=== PATIENT | male | born 1975 | race Caucasian/White ===

== ENCOUNTER 2020-03-12 12:13 | Outpatient (CLI) | payer OTHER, MEDICARE, SELFPAY ==
[2020-03-12 13:09] LABS: Alanine Aminotransferase 21 U/L (4-50); Albumin Level 4.8 g/dL (3.5-5.1); Alkaline Phosphatase 77 U/L (38-126); Aspartate Amino Transferase 23 U/L (17-59); Bilirubin,Total 0.4 mg/dL (0.2-1.3); Blood Urea Nitrogen 20 mg/dL (9-20); Calcium 9.6 mg/dL (8.4-10.2); Carbon Dioxide 22 mmol/L (22-30); Chloride 108 mmol/L (98-107); Cholesterol 208 mg/dL (0-200); Estimated Glomerular Filt Rate > 60; Glucose 154 mg/dL (75-110); Potassium 4.6 mmol/L (3.4-5.0); Sodium 139 mmol/L (137-145); Triglycerides 279 mg/dL (<150)
[2020-03-12 13:13] LABS: HDL Direct 34 mg/dL
[2020-03-12 13:14] LABS: LDL Cholesterol Direct 120 mg/dL
== END 2020-03-12 12:14 | disposition home or self-care (01) ==
PROVIDERS: PCP Family Medicine; Visit Provider Internal Medicine Cardiovascular Disease
DX: E78.5 Hyperlipidemia, unspecified (principal)
CPT/HCPCS: 36415; 80053; 80061

== ENCOUNTER 2020-10-13 17:40 | Outpatient (CLI) | payer OTHER, MEDICARE, SELFPAY ==
--- NOTE | ~2020-10-13 | US_ITS ---
EXAMINATION: US scrotum doppler EXAM DATE: 10/13/2020 18:18 INDICATION: N50.812 - Left testicular pain . Symptoms progressing for last week. TECHNIQUE: Multiple grayscale and Doppler images of the testicles and scrotum were obtained bilateral ly. FINDINGS: Right testicle measures 4.3 x 2.4 x 3.4 cm and is morphologically normal. Low resistance Doppler tod w confirmed. The epididymis is unremarkable. There is no hydrocele or varicocele. Left testicle measures 4.4 x 2.1 x 3.4 cm and is morphologically normal. Low resistance Doppler flow confirmed. Left epididymis body appears larger than contralateral side with similar echogenicity. Mi nimal symmetric demonstratable vascularity to both of them. Acute epididymitis typically has increase d vascularity which is not demonstrated here, but patient could have been on antibiotics decreasing i nflammation. There is no hydrocele or varicocele. IMPRESSION: 1. Morphologically normal testicles. 2. Asymmetric epididymal size with the left being larger. Both left and right epididymi have symmetr ic minimal demonstratable vascularity. Appearance most consistent with partially treated epididymitis , assuming patient has been on antibiotics. Small left hydrocele. Reviewed, dictated and finalized at location A. IT REVIEW ANALYST IMPRESSION: 1. Morphologically normal testicles. 2. Asymmetric epididymal size with the left being larger. Both left and right epididymi have symmetric minimal demonstratable vascularity. Appearance most co nsistent with partially treated epididymitis, assuming patient has been on anti biotics. Small left hydrocele.
== END 2020-10-13 17:41 | disposition home or self-care (01) ==
PROVIDERS: PCP Family Medicine; Visit Provider Nurse Practitioner Family
DX: N50.812 Left testicular pain (principal); N50.89 Other specified disorders of the male genital organs; R68.83 Chills (without fever)
CPT/HCPCS: 76870; 93976

== ENCOUNTER 2020-10-14 12:54 | Outpatient (CLI) | payer OTHER, MEDICARE, SELFPAY ==
[2020-10-14 13:29] LABS: Basophils Absolute Auto 0.1 K/mm3 (0.0-0.1); Basophils Percent Auto 0.8 % (0.2-1.2); Eosinophils Absolute Auto 0.2 K/mm3 (0-0.3); Eosinophils Percent Auto 2.4 % (0-4.4); Hemoglobin 16.4 g/dL (14.0-18.0); Immature Granulocyte Absolute 0.03 K/mm3 (0.00-0.031); Immature Granulocyte Percent A 0.3 % (0-0.5); Lymphocytes Absolute Auto 2.99 K/mm3 (0.9-3.2); Mean Corpuscular HGB Conc 35.7 g/dl (32-36); Mean Corpuscular Hemoglobin 30.2 pg (26-34); Mean Corpuscular Volume 84.7 fl (80-100); Mean Platelet Volume 10.1 fl (7.4-10.4); Monocytes Absolute Auto 0.8 K/mm3 (0.1-0.6); Monocytes Percent Auto 8.9 % (2.6-8.5); Neutrophils Absolute Auto 4.9 K/mm3 (1.3-6.7); Neutrophils Percent Auto 54.6 % (45.5-73.1); Platelet Count Result 191 k/mm3 (150-375); Red Blood Count 5.43 M/mm3 (4.6-6.20); White Blood Count 9.1 K/mm3 (4.5-10.0)
[2020-10-14 13:41] LABS: Anion Gap 8 mmol/L (8-16); Blood Urea Nitrogen 15 mg/dL (9-20); Calcium 9.7 mg/dL (8.4-10.2); Carbon Dioxide 28 mmol/L (22-30); Chloride 101 mmol/L (98-107); Estimated Glomerular Filt Rate > 60; Glucose 112 mg/dL (75-110); Potassium 4.5 mmol/L (3.4-5.0); Sodium 137 mmol/L (137-145)
== END 2020-10-14 12:55 | disposition home or self-care (01) ==
LOC: ANHLAB 12:58
PROVIDERS: PCP Family Medicine; Visit Provider Nurse Practitioner Family
DX: R68.83 Chills (without fever) (principal); N50.812 Left testicular pain; N50.89 Other specified disorders of the male genital organs
CPT/HCPCS: 36415; 80048; 85025

== ENCOUNTER 2020-12-17 08:38 | Outpatient (CLI) | payer OTHER, MEDICARE, SELFPAY ==
--- NOTE | 2020-12-17 08:49 | ECHO_ITS ---
Patient Info Name: Porfirio Chang Age: 45 years : 1975 Gender: Male Ht: 72 in Wt: 225 lbs BSA: 2.30 m2 HR: 60 bpm BP: 139 / 75 mmHg Heart Rhythm: Sinus Rhythm Exam Date: 12/17/2020 9:00 AM Exam Location: [facility] Patient Status: Outpatient Admit Date: 12/17/2020 Staff Ordering Physician: Kevin Hobbs DO Sod Stripper: Gillian Parrish RDCS Attending Provider: Kevin Hobbs DO Referring Physician: Anjel PIERRE; Exam Type: CA echo doppler color flow Study Info Indications I42.1 - Obstructive hypertrophic cardiomyopathy Complete two-dimensional, color flow and Doppler transthoracic echocardiogram is performed. Summary 1. Complete two-dimensional, color flow and Doppler transthoracic echocardiogram is performed. 2. Left ventricular chamber dimension is normal. 3. Ventricular septum is sigmoid shaped. No LVOT obstruction. 4. Left ventricular systolic function is normal, estimated at 60-65%. 5. The left ventricular diastolic function is grade I diastolic dysfunction. 6. E/e' 7 is not elevated. 7. Linear artifact in right ventricle suggestive of catheter(s), pacemaker lead(s), or ICD lead(s). 8. Left atrial chamber dimension is mildly enlarged. 9. Linear artifact in the right atrium suggestive of catheter(s), pacemaker lead(s), or ICD lead(s). 10. There is trace mitral valve regurgitation. 11. There is trace tricuspid valve regurgitation. Left Ventricle E/e' 7 is not elevated. Ventricular septum is sigmoid shaped. No LVOT obstruction. Left ventricular chamber dimension is normal. Left ventricular systolic function is normal, estimated at 60-65%. The left ventricular diastolic function is grade I diastolic dysfunction. Right Ventricle Linear artifact in right ventricle suggestive of catheter(s), pacemaker lead(s), or ICD lead(s). Right ventricular chamber dimension is normal. Right ventricular systolic function is normal. Left Atria Left atrial chamber dimension is mildly enlarged. Right Atria Linear artifact in the right atrium suggestive of catheter(s), pacemaker lead(s), or ICD lead(s). Right atrial chamber dimension is normal. Aortic Valve The aortic valve is trileaflet. There is no aortic valve stenosis. There is no aortic valve regurgitation. Pulmonic Valve There is no pulmonic regurgitation. Mitral Valve There is no mitral valve stenosis. There is trace mitral valve regurgitation. Tricuspid Valve There is trace tricuspid valve regurgitation. RVSP is not calculated due to an inadequate TR jet. Pericardium/Pleural There is no pericardial effusion. Inferior Vena Cava Normal inferior vena cava with >50% collapse upon inspiration consistent with normal right atrial pressure, 5 mmHg. Aorta The aortic root size at the sinus of Valsalva is normal. Left Ventricular Outflow Tract Name Value Normal LVOT 2D LVOT Diameter 2.4 cm LVOT Doppler LVOT Peak Gradient 3 mmHg LVOT Mean Gradient 1 mmHg LVOT VTI 19 cm LVOT VTI/AV VTI Ratio 0.7
== END 2020-12-17 08:39 | disposition home or self-care (01) ==
PROVIDERS: PCP Family Medicine; Visit Provider Internal Medicine Cardiovascular Disease
DX: I42.1 Obstructive hypertrophic cardiomyopathy (principal)
CPT/HCPCS: 93306

== ENCOUNTER 2021-02-07 11:02 | Outpatient (CLI) | payer OTHER, MEDICARE, SELFPAY | END 2021-02-07 11:03 | disposition home or self-care (01) | LOC: CHSCOVIDVC 11:03 | PROVIDERS: PCP Family Medicine | DX: Z23 Encounter for immunization (principal) | CPT/HCPCS: 0011A; 91301 ==

== ENCOUNTER → 2021-02-28 02:10 | Outpatient (CLI) | payer OTHER, MEDICARE, SELFPAY ==
[2021-02-28 19:55] LABS: SARS-CoV-2 RNA PCR Negative
== END ==
PROVIDERS: PCP Family Medicine; Visit Provider Internal Medicine Cardiovascular Disease
DX: Z01.812 Encounter for preprocedural laboratory examination (principal); Z20.822 Contact with and (suspected) exposure to COVID-19
CPT/HCPCS: C9803; U0003; U0005

== ENCOUNTER 2021-03-04 02:35 | Day surgery (SDC) | payer OTHER, MEDICARE, SELFPAY ==
--- NOTE | 2021-03-04 10:07 | SUR.PREOP ---
ARRIVES AMBULATORY TO [facility] W/ AT SIDE FOR ICD CHANGE W/ DR. PRITCHARD. DENIES CP OR SOB; LIFE VEST IS ON. ORIENTED TO ROOM, PLAN OF CARE, PROCEDURE. QUESTIONS ANSWERED. IV STARTED, LABS SENT, VS OBTAINED, CONSENT SIGNED. WILL CONTINUE TO MONITOR.
[2021-03-04 10:38] LABS: Basophils Percent Auto 0.7 % (0.2-1.2); Eosinophils Absolute Auto 0.2 K/mm3 (0-0.3); Hematocrit 41.3 % (42.0-52.0); Hemoglobin 14.3 g/dL (14.0-18.0); Immature Granulocyte Absolute 0.01 K/mm3 (0.00-0.031); Immature Granulocyte Percent A 0.2 % (0-0.5); Lymphocytes Absolute Auto 2.01 K/mm3 (0.9-3.2); Lymphocytes Percent Auto 47.3 % (18.3-44.2); Mean Corpuscular HGB Conc 34.6 g/dl (32-36); Mean Corpuscular Hemoglobin 29.6 pg (26-34); Mean Corpuscular Volume 85.5 fl (80-100); Monocytes Absolute Auto 0.5 K/mm3 (0.1-0.6); Monocytes Percent Auto 10.6 % (2.6-8.5); Neutrophils Absolute Auto 1.6 K/mm3 (1.3-6.7); Neutrophils Percent Auto 37.2 % (45.5-73.1); Platelet Count Result 155 k/mm3 (150-375); Red Blood Count 4.83 M/mm3 (4.6-6.20); Red Cell Distribution Width 12.2 % (11.5-14.5); White Blood Count 4.3 K/mm3 (4.5-10.0)
[2021-03-04 10:40] VITALS: BP 113/71; PULSE 60; RESP 16; TEMP 36.3; O2SAT 98
[2021-03-04 10:49] LABS: Alanine Aminotransferase 19 U/L (4-50); Albumin Level 4.2 g/dL (3.5-5.1); Alkaline Phosphatase 54 U/L (38-126); Anion Gap 8 mmol/L (8-16); Aspartate Amino Transferase 26 U/L (17-59); Bilirubin,Total 0.3 mg/dL (0.2-1.3); Blood Urea Nitrogen 15 mg/dL (9-20); Calcium 9.2 mg/dL (8.4-10.2); Carbon Dioxide 24 mmol/L (22-30); Chloride 111 mmol/L (98-107); Estimated Glomerular Filt Rate > 60; Glucose 111 mg/dL (75-110); Potassium 4.2 mmol/L (3.4-5.0); Sodium 143 mmol/L (137-145)
--- NOTE | 2021-03-04 10:55 | SUR.PREOP ---
[employer] AT BEDSIDE.
[2021-03-04 11:07] VITALS: BMI 30.5
--- NOTE | 2021-03-04 11:10 | SUR.PREOP ---
DR. PRITCHARD AT BEDSIDE W/ PT AND .
--- NOTE | 2021-03-04 11:12 | PM.IMHP ---
H&P: HPI History of Present Illness Date/Time: 03/04/21 11:12 Chief Complaint: Mr. 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 Hobbs. His ICD showed a fault code on 02/04/2021, showing low voltage and urgent generator change was recommended. A LifeVest was placed to provide us time to arrange for an elective generator change. The patient has been doing well with no fevers. He has been NPO. His last dose of Eliquis was Tuesday. He has some chronic GOODE and occasional cough syncope secondary to HOCM but no other problems. His original ICD was placed by Dr. Waldrop at [facility] in 2014. Review of Systems Constitutional: Constitutional: Denies weakness ENT: Reports Normal hearing present Cardiovascular: Cardiovascular: Denies chest pain, Denies pedal edema, Denies lightheadedness and Denies palpitations Respiratory: Respiratory: Denies dyspnea and Reports dyspnea on exertion Gastrointestinal: Gastrointestinal: Denies abdominal pain Genitourinary: Genitourinary: Denies dysuria Musculoskeletal: Musculoskeletal: Reports no additional musculoskeletal complaints Integumentary/Breasts: Skin/Breast: Denies rash and Denies wounds Neurologic: Reports system reviewed and no additional complaints, except as documented Psychiatric: Psychiatric: Reports no additional psychiatric complaints [facility] Past Medical History Medical History (Updated 03/04/21 @ 11:23 by Sudha Gage MD) BMI 30.0-30.9,adult Chronic anticoagulation Headache, migraine Heart murmur HOCM (hypertrophic obstructive cardiomyopathy) s/p myomectomy Hyperlipidemia Hypertension ICD (implantable cardioverter-defibrillator) in place [employer], implanted by Dr. Waldrop 2104 Generator change 2020 DALIA (obstructive sleep apnea) Surgical History Surgical History (Updated 03/04/21 @ 11:23 by Sudha Gage MD) Status post cardiac surgery HOCM s/p myomectomy Family History Family History Grandparent Hypertension Family history of lung cancer Family history of coronary artery disease Cerebrovascular accident Father Acute myocardial infarction Hypertension Mother No problems noted. Sibling No problems noted. 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 Gender identity (if verbalized by the patient): Male Meds Home Medications and Allergies Home Medications Medication Instructions Recorded Confirmed Type omega-3 fatty acids 1,000 mg 1,000 mg PO DAILY 03/12/20 03/04/21 History capsule apixaban 5 mg tablet 5 mg PO BID #180 tablet 03/24/20 03/04/21 Rx atorvastatin 20 mg tablet 20 mg PO DAILY #90 tablet 03/24/20 03/04/21 Rx tamsulosin 0.4 mg capsule 0.4 mg PO HS 01/15/21 03/04/21 History diltiazem HCl 360 mg PO HS 03/04/21 03/04/21 History furosemide 10 mg PO QAM 03/04/21 03/04/21 History sotalol 80 mg PO Q12H 03/04/21 03/04/21 History Allergies Allergy/AdvReac Type Severity Reaction Status Date / Time No Known Drug Allergies Allergy Unknown none Verified 03/04/21 11:00 Vital Signs Vital Signs - 24 hr 03/04/21 10:40 Temperature 97.3 F L Pulse Rate 60 Respiratory Rate 16 Blood Pressure 113/71 Pulse Oximetry 98 Exam Const: General: comfortable and no acute distress HENMT: Mouth
--- NOTE | 2021-03-04 11:25 | WPDMODSED ---
Moderate Sedation Note-Pt Data Patient Data Diagnosis: ICD at ABBI/EOL HOCM PAF H/O DVT/PE on anticoagulation Present Complaint: Here for Generator change Procedure to be performed/Plan: Generator change Allergies Allergy/AdvReac Type Severity Reaction Status Date / Time No Known Drug Allergies Allergy Unknown none Verified 03/04/21 11:00 Home Medications Medication Instructions Recorded Confirmed Type omega-3 fatty acids 1,000 mg 1,000 mg PO DAILY 03/12/20 03/04/21 History capsule apixaban 5 mg tablet 5 mg PO BID #180 tablet 03/24/20 03/04/21 Rx atorvastatin 20 mg tablet 20 mg PO DAILY #90 tablet 03/24/20 03/04/21 Rx tamsulosin 0.4 mg capsule 0.4 mg PO HS 01/15/21 03/04/21 History diltiazem HCl 360 mg PO HS 03/04/21 03/04/21 History furosemide 10 mg PO QAM 03/04/21 03/04/21 History sotalol 80 mg PO Q12H 03/04/21 03/04/21 History Sedation/Anesthesia: No previous sedation/anesthesia problems (including family history). [facility] Past Medical History Medical History (Updated 03/04/21 @ 11:23 by Sudha Gage MD) BMI 30.0-30.9,adult Chronic anticoagulation Headache, migraine Heart murmur HOCM (hypertrophic obstructive cardiomyopathy) s/p myomectomy Hyperlipidemia Hypertension ICD (implantable cardioverter-defibrillator) in place [employer], implanted by Dr. Waldrop 2104 Generator change 2020 DALIA (obstructive sleep apnea) Surgical History Surgical History (Updated 03/04/21 @ 11:23 by Sudha Gage MD) Status post cardiac surgery HOCM s/p myomectomy Family History Family History Grandparent Hypertension Family history of lung cancer Family history of coronary artery disease Cerebrovascular accident Father Acute myocardial infarction Hypertension Mother No problems noted. Sibling No problems noted. 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 Gender identity (if verbalized by the patient): Male Mod Sed Physical Exam Physical Exam Pre Procedural Exam: Normal: Appearance, Eyes, Ears, Nose, Neck, Throat, Airway, Lungs, Heart Size, Heart Rate, Heart Rhythm, Neuro Exam, Abdomen, Genitalia, Extremities and Skin (ICD site well-healed) Hours since solid foods: 12 Hours since liquid intake: 12 Internal Medicine - PN: Obj Da Vital Signs Vital Signs: Vital Signs - 24 hr 03/04/21 10:40 Temperature 97.3 F L Pulse Rate 60 Respiratory Rate 16 Blood Pressure 113/71 Pulse Oximetry 98 Labs CBC & Chem 7: 03/04/21 10:23 03/04/21 10:23 Labs: Laboratory Results - last 24 hr 03/04/21 03/04/21 10:23 10:23 WBC 4.3 L RBC 4.83 Hgb 14.3 Hct 41.3 L MCV 85.5 MCH 29.6 MCHC 34.6 RDW 12.2 Plt Count 155 MPV 10.0 Immature Gran % (Auto) 0.2 Neut % (Auto) 37.2 L Lymph % (Auto) 47.3 H Hendry % (Auto) 10.6 H Eos % (Auto) 4.0 Baso % (Auto) 0.7 Lymph # (Auto) 2.01 Hendry # (Auto) 0.5 Eos # (Auto) 0.2 Baso # (Auto) 0.0 Abs Immat Gran (auto) 0.01 Absolute Neuts (auto) 1.6 Absolute Nucleated RBC 0.0 Nucleated RBC % 0.0 Sodium 143 Potassium 4.2 Chloride 111 H Carbon Dioxide 24 Anion Gap 8 BUN 15 Creatinine 0.90 Estim Creat Clear Calc Not Reportable Estimated GFR > 60 Glucose 111 H Calcium 9.2 Total Bilirubin 0.3 AST 26 ALT 19 Alkaline Phosphatase 54 Total Protein 7.0 Albumin 4.2 ASA Classification/Se
--- NOTE | 2021-03-04 12:54 | PM.OP ---
Procedure Note - Brief Procedure Note - Brief Date of procedure: 03/04/21 Pre-op diagnosis: battery end of life ICD generator battery premature depletion Post-op diagnosis: same Procedure performed: Conscious sedation Generator change Description of procedure: uneventful generator change Anesthesia: local ( with conscious sedation) Surgeon: Sudha Gage MD Estimated blood loss (mL): 5 Complications: No immediate complications Condition: stable Disposition: observation
--- NOTE | 2021-03-04 12:55 | P.OP_ITS ---
Procedure Note - Detailed Date of procedure: 03/04/21 Pre-op diagnosis: battery end of life premature battery depletion Post-op diagnosis: same Description of procedure: PROCEDURE: Conscious sedation Generator change UNDERLYING RHYTHM: normal sinus rhythm, occasionally atrially paced CONSCIOUS SEDATION: Assessment: The patient has no history of anesthesia problems. The oropharynx is clear. The patient was deemed to be a good candidate for conscious sedation. The patient had continuous hemodynamic and oximetric monitoring during the procedure. Start time: 1156 Completion time: 1245 Total conscious sedation time: 49 minutes Medications: Versed 2 mg, fentanyl 100 mcg IV push Trained observer: Stella Vela RN Outcome: The patient tolerated the procedure well with no complications. PROCEDURE: After informed consent, the patient is brought to the slab depiler operator and the left prepectoral area was prepped and draped in usual fashion. The patient was given a prophylactic antibiotic intravenously with Ancef. After conscious sedation as described above, the area was anesthetized with 1% lidocaine. A skin incision is made with the Plasma Blade and carried down to the pacing capsule which was also incised. Hemostasis is obtained using the Plasma Blade. The lead/s was/were freed from the underlying capsule and inspected and were found to be intact. The pulse generator was delivered from the pocket. The lead/s was/were disconnected from the existing device and reconnected to the new device. A gentle tug could not remove it/them. The device and lead/s was/were interrogated and found to be functioning appropriately. The pocket was enlarged somewhat as the capsule was quite tight.The area was copiously irrigated with antibiotic-containing solution. The device was replaced in the pocket. The subcutaneous tissues were closed in a two-layer fashion with interrupted 2 0 Vicryl sutures and the skin was closed in a continuous fashion using 4 0 Vicryl. The area was cleansed, an Aquacel dressing applied as well as a pressure dressing. The patient tolerated the procedure well with no complications. Estimated blood loss was negligible. DEVICE INFORMATION: New pulse generator: [employer] Momentum EL ICD IS-1/DF-1-, Model D121, Serial # [id number] Existing right atrial lead: [employer] model 4470, serial number [id number] implanted 11/04/2014 Existing RV lead: [employer] model 0185, serial number [id number], implanted 11/04/2014 Explanted pulse generator: [employer] model [id number], implanted 11/04/2014 THRESHOLD INFORMATION: Right atrium: P-wave sensing 6.2 mV, threshold 0.7 volts at 0.4 milliseconds impedance 435 Ohms Right ventricular lead: R-wave sensing 14.3 mV, threshold 0.6 volts at 0.4 milliseconds, impedance 417 Ohms, shock impedance 47 Ohms PROGRAMMED PARAMETERS: DDDR 60/130 No changes made in pacing or therapy parameters. FOLLOW-UP: Patient will follow up in our office in 1 week for an incision check and thereafter follow-up with Dr. Hobbs Surgeon: Sudha Gage MD
[2021-03-04 13:00] VITALS: BP 110/75; PULSE 60; RESP 16; TEMP 36.4; O2SAT 98
--- NOTE | 2021-03-04 13:09 | ECG_ITS ---
Measurements Intervals [place] Rate: 60 P: 180 AK: 235 QRS: -27 QRSD: 131 T: 161 QT: 486 QTc: 486 Interpretive Statements ELECTRONIC ATRIAL PACEMAKER INTRAVENTRICULAR CONDUCTION DELAY T WAVE ABNORMALITY IN ANTEROLATERAL LEADS- CONSIDER ISCHEMIA OR HYPERTROPHIC CARDIOMYOPATHY ABNORMAL ECG Electronically Signed On 03-04-2021 14:43:49 CDT by Kevin Hobsb D.O.
[2021-03-04 13:15] VITALS: BP 111/73; PULSE 60; RESP 16; O2SAT 98
[2021-03-04 13:30] VITALS: BP 110/75; PULSE 60; RESP 18; O2SAT 100
[2021-03-04 13:45] VITALS: BP 116/79; PULSE 60; RESP 16; O2SAT 98
[2021-03-04 14:15] VITALS: BP 119/79; PULSE 60; RESP 16; TEMP 36.3; O2SAT 99
--- NOTE | 2021-03-04 14:45 | SUR.PHASEII ---
REVIEWED ALL DISCHARGE INSTRUCTIONS W/ PT AND . QUESTIONS ANSWERED. VOICED UNDERSTANDING OF ALL. DISCHARGED HOME, OUT VIA WC TO 'S CAR WITH ALL PERSONAL BELONGINGS AND DISCHARGE PACKET. VOICES NO C/O. NO DISTRESS NOTED. L. UPPER CHEST DRESSING C/D/I. PRESSURE DRESSING INTACT. NO SWELLING, REDNESS OR DRAINAGE NOTED. L. RADIAL PULSE STRONG. L. HAND W/ NORMAL SENSATION AND MOVEMENT. CAP REFILL WNL.
== END 2021-03-04 14:45 | disposition home or self-care (01) ==
PROVIDERS: PCP Family Medicine; Visit Provider Internal Medicine Cardiovascular Disease
PROC: 0JPT0PZ Removal of Cardiac Rhythm Related Device from Trunk Subcutaneous Tissue and Fascia, Open Approach (ICD-10-PCS; CPT 33249; principal; 2021-03-04 11:30)
DX: Z45.02 Encounter for adjustment and management of automatic implantable cardiac defibrillator (principal); I42.1 Obstructive hypertrophic cardiomyopathy; I10 Essential (primary) hypertension; E78.5 Hyperlipidemia, unspecified; G47.33 Obstructive sleep apnea (adult) (pediatric); Z87.891 Personal history of nicotine dependence; F12.90 Cannabis use, unspecified, uncomplicated; Z79.01 Long term (current) use of anticoagulants
CPT/HCPCS: 33263; 36415; 80053; 85025; 93005; C1721; J0690; J2250; J3010; J7040

== ENCOUNTER 2021-03-07 10:59 | Outpatient (CLI) | payer OTHER, MEDICARE, SELFPAY | END 2021-03-07 11:00 | disposition home or self-care (01) | LOC: CHSCOVIDVC 10:59 | PROVIDERS: PCP Family Medicine | DX: Z23 Encounter for immunization (principal) | CPT/HCPCS: 0012A; 91301 ==

== ENCOUNTER 2021-04-15 14:20 | Outpatient (CLI) | payer OTHER, MEDICARE, SELFPAY ==
--- NOTE | ~2021-04-15 | CT_ITS ---
EXAMINATION: CT abdomen pelvis w con EXAM DATE: 04/15/2021 15:40 INDICATION: R10.814 - Left lower quadrant abdominal tenderness. Nausea, diarrhea, urinary retention. Weight loss. TECHNIQUE: Spiral CT of the abdomen and pelvis was performed without contrast. Axial, coronal and sag ittal images were reviewed. The dose-length product (DLP) for this examination was 831.87 mGy-cm. T he exposure was tailored according to patient size (auto mA exposure control), and iterative reconstr uction (ASIR) was used as additional dose reduction technique. There is no prior study for compariso n. FINDINGS: Portal and splenic veins are patent. Kidneys enhance symmetrically. There is no hydronep hrosis. Mild prostatomegaly. The bladder is unremarkable. The liver, spleen, adrenal glands and p ancreas are unremarkable. Gallbladder is unremarkable. No biliary obstruction. There is no retrope ritoneal or pelvic lymphadenopathy. There is mild scattered arteriosclerotic disease. The appendix is normal. There is mild sigmoid colonic diverticulosis. There is no adjacent inflammat ory change to suggest diverticulitis. There is small sliding gastroesophageal hiatal hernia. There i s expected amount of colonic stool. No free intraperitoneal gas. Heart is normal in size. AICD/pa cemaker leads. The lung bases are unremarkable. There are no osteoblastic or osteolytic lesions adair ntified. IMPRESSION: 1. No acute intra-abdominal findings. 2. Mild prostatomegaly. 3. Mild sigmoid diverticulosis. 4. Small hiatal hernia. Reviewed, dictated and finalized at location B.
[2021-04-15 15:26] LABS: Estimated Glomerular Filt Rate > 60
== END 2021-04-15 14:21 | disposition home or self-care (01) ==
PROVIDERS: PCP Family Medicine; Visit Provider Nurse Practitioner Family
DX: N40.0 Benign prostatic hyperplasia without lower urinary tract symptoms (principal); K57.30 Diverticulosis of large intestine without perforation or abscess without bleeding; K44.9 Diaphragmatic hernia without obstruction or gangrene
CPT/HCPCS: 74177; Q9967

== ENCOUNTER 2021-04-15 16:12 | Outpatient (CLI) | payer OTHER, MEDICARE, SELFPAY ==
[2021-04-15 16:40] LABS: Basophils Percent Auto 0.5 % (0.2-1.2); Eosinophils Absolute Auto 0.2 K/mm3 (0-0.3); Eosinophils Percent Auto 2.5 % (0-4.4); Hematocrit 44.9 % (42.0-52.0); Hemoglobin 15.3 g/dL (14.0-18.0); Immature Granulocyte Absolute 0.01 K/mm3 (0.00-0.031); Immature Granulocyte Percent A 0.2 % (0-0.5); Lymphocytes Absolute Auto 2.49 K/mm3 (0.9-3.2); Lymphocytes Percent Auto 39.2 % (18.3-44.2); Mean Corpuscular HGB Conc 34.1 g/dl (32-36); Mean Platelet Volume 9.7 fl (7.4-10.4); Monocytes Absolute Auto 0.6 K/mm3 (0.1-0.6); Monocytes Percent Auto 9.9 % (2.6-8.5); Neutrophils Percent Auto 47.7 % (45.5-73.1); Platelet Count Result 186 k/mm3 (150-375); Red Blood Count 5.28 M/mm3 (4.6-6.20); Red Cell Distribution Width 12.4 % (11.5-14.5); White Blood Count 6.4 K/mm3 (4.5-10.0)
[2021-04-15 16:49] LABS: Alanine Aminotransferase 20 U/L (4-50); Albumin Level 4.8 g/dL (3.5-5.1); Alkaline Phosphatase 62 U/L (38-126); Anion Gap 10 mmol/L (8-16); Aspartate Amino Transferase 32 U/L (17-59); Bilirubin,Total 0.8 mg/dL (0.2-1.3); Blood Urea Nitrogen 9 mg/dL (9-20); Carbon Dioxide 27 mmol/L (22-30); Chloride 103 mmol/L (98-107); Estimated Glomerular Filt Rate > 60; Glucose 91 mg/dL (75-110); Magnesium 1.9 mg/dL (1.6-2.3); Potassium 4.1 mmol/L (3.4-5.0); Sodium 140 mmol/L (137-145)
[2021-04-15 17:00] LABS: Hemoglobin A1C 6.1 % (<5.7)
[2021-04-15 17:20] LABS: Prostate Specific Antigen 0.8 ng/mL (< OR = 4.0)
[2021-04-19 22:40] LABS: Testosterone Free 30.8 pg/mL (35.0-155.0); Testosterone Total 239 ng/dL (250-1100)
== END 2021-04-15 16:13 | disposition home or self-care (01) ==
LOC: ANHLAB 16:16
PROVIDERS: PCP Family Medicine; Visit Provider Nurse Practitioner Family
DX: R10.814 Left lower quadrant abdominal tenderness (principal); R68.83 Chills (without fever); G62.9 Polyneuropathy, unspecified; N52.9 Male erectile dysfunction, unspecified; R73.09 Other abnormal glucose
CPT/HCPCS: 36415; 80053; 82607; 83036; 83735; 84153; 84402; 84403; 85025

== ENCOUNTER 2021-05-06 06:45 | Outpatient (CLI) | payer OTHER, MEDICARE, SELFPAY ==
[2021-05-13 13:24] LABS: Testosterone Free 76.4 pg/mL (35.0-155.0); Testosterone Total 538 ng/dL (250-1100)
== END 2021-05-06 06:46 | disposition home or self-care (01) ==
PROVIDERS: PCP Family Medicine; Visit Provider Nurse Practitioner Family
DX: R79.89 Other specified abnormal findings of blood chemistry (principal); N52.9 Male erectile dysfunction, unspecified
CPT/HCPCS: 36415; 84402; 84403

== ENCOUNTER 2021-05-27 14:16 | Inpatient (IN) | payer OTHER, MEDICARE, SELFPAY ==
[2021-05-27] VITALS (11 sets, daily range): BP systolic 105–146; BP diastolic 41–74; PULSE 69–87; RESP 14–20; TEMP 37.1–39.5; O2SAT 95–100; BMI 29.6
--- NOTE | ~2021-05-27 | XR_ITS ---
EXAMINATION: XR lumbar spine 2-3V DATE: 05/29/2021 15:16 INDICATION: Low back pain. TECHNIQUE: 3 views of lumbar spine were obtained. COMPARISON: None. FINDINGS: There is 4 degrees levocurvature of thoracolumbar spine. Vertebral body heights and interve rtebral disc heights are normal. The facet joints are unremarkable. IMPRESSION: 1. No etiology for the patient's symptoms. Reviewed, dictated and finalized at location B.
--- NOTE | ~2021-05-27 | BM_ITS ---
EXAMINATION: CCL bone marrow asp w bx diag ORDER COMPLETED DATE: 05/29/2021 10:14 INDICATION: Leukopenia and thrombocytopenia TECHNIQUE: A time-out was performed to verify the patient's name, date of , and procedure to b e performed. The procedure including the risks, benefits, and alternatives was discussed with the pat ient. Risks discussed included bleeding and infection. The patient understood the risks and agreed to proceed. The skin overlying the right posterior iliac spine was prepped and draped in usual sterile fashion. Anesthetic was administered with 1% lidocaine subcutaneously. Systemic analgesia was provide d with 50 mcg fentanyl IV. An 11 gauge needle was inserted into the ilium with fluoroscopic guidance. Bone marrow was aspirated. An 8 gauge needle was then inserted into the ilium with fluoroscopic guid ance. A core bone marrow biopsy was obtained. There were no immediate complications. Fluoroscopy expo sure time was 0.1 minutes. The total number of images was 33. Total DAP was 270 mGycm^2 FINDINGS: Real-time fluoroscopy demonstrates a marker overlying the right posterior iliac spine. IMPRESSION: 1. Successful fluoro-guided bone marrow aspiration. 2. Successful fluoro-guided bone marrow core biopsy. Reviewed, dictated and finalized at location A.
--- NOTE | ~2021-05-27 | CT_ITS ---
EXAMINATION: CT abdomen pelvis wo con DATE: 05/27/2021 15:19 INDICATION: Right flank pain. TECHNIQUE: Computed tomography (CT) of the abdomen and pelvis was performed without intravenous contr ast. Automated exposure control and iterative reconstruction technique were employed. The dose-length product was 924.56 mGy-cm. COMPARISON: CT abdomen and pelvis 04/15/2021 FINDINGS: The visualized portions of the lung bases demonstrate minimal atelectasis in right middle l obe. No pleural effusion. The heart size is normal. There are pacer wires in right atrium and right v entricle. No pericardial effusion. Median sternotomy wires are noted. The liver, gallbladder, spleen, pancreas, adrenal glands, and kidneys are normal. There is no urolithiasis. The prostate is moderate ly enlarged. There are no dilated loops of bowel. The appendix is normal. There are no pathologically enlarged lymph nodes. There is no free intraperitoneal fluid. There is mild thoracolumbar spondylosi s. IMPRESSION: 1. No etiology for the patient's symptoms. Reviewed, dictated and finalized at location B.
--- NOTE | ~2021-05-27 | XR_ITS ---
EXAMINATION: XR chest 2V DATE: 05/27/2021 15:20 INDICATION: Fever. TECHNIQUE: Frontal and lateral views of the chest were obtained. COMPARISON: Chest 2 views 01/15/2016 FINDINGS: The chest demonstrates clear lungs without pneumonia, pleural effusion, or pneumothorax. Th e heart size is normal. Median sternotomy wires are noted. There is a left chest wall pacer with lead s in the right atrium and right ventricle. IMPRESSION: 1. No acute cardiopulmonary disease. Reviewed, dictated and finalized at location B.
[2021-05-27 14:42] LABS: Hematocrit 46.6 % (42.0-52.0); Hemoglobin 15.8 g/dL (14.0-18.0); Immature Platelet Fraction Pct 3.6 % (0.9-11.2); Lymphocytes Absolute Auto 0.25 K/mm3 (0.9-3.2); Lymphocytes Percent Auto 12.3 % (18.3-44.2); Mean Corpuscular HGB Conc 33.9 g/dl (32-36); Mean Corpuscular Hemoglobin 29.5 pg (26-34); Mean Corpuscular Volume 86.9 fl (80-100); Mean Platelet Volume 10.1 fl (7.4-10.4); Monocytes Absolute Auto 0.1 K/mm3 (0.1-0.6); Monocytes Percent Auto 6.4 % (2.6-8.5); Neutrophils Absolute Auto 1.7 K/mm3 (1.3-6.7); Neutrophils Percent Auto 81.3 % (45.5-73.1); Platelet Count Result 99 k/mm3 (150-375); Red Blood Count 5.36 M/mm3 (4.6-6.20); Red Cell Distribution Width 12.9 % (11.5-14.5)
--- NOTE | 2021-05-27 14:52 | ED.GENADULT ---
HPI - General Adult General Chief complaint: Back Pain/Injury <LANA Dubon Last Filed: 05/27/21 18:57> Stated complaint: back pain, fevers <Ashli Bryan PA-C - Last Filed: 05/27/21 18:57> Time Seen by Provider: 05/27/21 14:51 <LANA Dubon Last Filed: 05/27/21 18:57> Source: patient and family () <LANA Dubon Last Filed: 05/27/21 18:57> Mode of arrival: ambulatory <LANA Dubon Last Filed: 05/27/21 18:57> Limitations: no limitations <LANA Dubon Last Filed: 05/27/21 18:57> History of Present Illness HPI narrative: Patient is here for evaluation of right flank pain and fever. His temperature last night was 103 and he states that he had sweat profusely in bed. Last treatment for fever was this morning at 7 AM with Tylenol. He has been being treated for epididymitis for the past 4 weeks with Bactrim. He states that that pain has resolved. But he did have left flank pain that brought him in initially back in April and now the pain is on the right. He denies any dysuria, no difficulty stooling. <LANA Dubon Last Filed: 05/27/21 18:57> Onset (ago): day(s) <LANA Dubon Last Filed: 05/27/21 18:57> Related Data Home medications: Home Medications Medication Instructions Recorded Confirmed omega-3 fatty acids 1,000 mg 1,000 mg PO DAILY 03/12/20 05/27/21 capsule tamsulosin 0.4 mg capsule 0.4 mg PO HS 01/15/21 05/27/21 sotalol 80 mg PO Q12H 03/04/21 05/27/21 apixaban [Eliquis] 5 mg PO BID 05/27/21 05/27/21 atorvastatin 20 mg PO HS 05/27/21 05/27/21 diltiazem HCl 360 mg PO HS 05/27/21 05/27/21 <Ashli Bryan PA-C - Last Filed: 05/27/21 18:57> Allergies/adverse reactions: Allergies Allergy/AdvReac Type Severity Reaction Status Date / Time No Known Drug Allergies Allergy Unknown none Verified 05/27/21 21:22 <Ashli Bryan PA-C - Last Filed: 05/27/21 18:57> Review of Systems Review of Systems: All systems reviewed & are unremarkable except as noted in HPI and below <Ashli Bryan PA-C - Last Filed: 05/27/21 18:57> [facility] Past Medical History Medical History: Medical History BMI 28.0-28.9,adult BMI 29.0-29.9,adult BMI 30.0-30.9,adult Chronic anticoagulation Headache, migraine Heart murmur HOCM (hypertrophic obstructive cardiomyopathy) s/p myomectomy Hyperlipidemia Hypertension ICD (implantable cardioverter-defibrillator) in place [employer], implanted by Dr. Waldrop 2104 Generator change 2020 DALIA (obstructive sleep apnea) Pacemaker complications <Ashli Bryan PA-C - Last Filed: 05/27/21 18:57> Surgical History Surgical History: Surgical History Status post cardiac surgery HOCM s/p myomectomy <Aslhi Bryan PA-C - Last Filed: 05/27/21 18:57> Family History Family History: Family History (Updated 05/27/21 @ 21:27 by Yaritza Bermudez RN) Grandparent Family history of lung cancer Family history of coronary artery disease Hypertension Cerebrovascular accident Parkinson disease Father Acute myocardial infarction Hypertension Mother No problems noted. Sibling No problems noted. 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 Smoking packs per day: 1 Smoking cigarettes per day: 20.0 Years smoked: 20 Smoking pack-years: 20.00 Smoking status: Former smoker Tobacco type: cigarettes Alcohol intake: current Drinks per week: 1 Substance use: current Substance use type: marijuana Other substance usage details: medical
[2021-05-27 14:58] LABS: Anion Gap 8 mmol/L (8-16); Blood Urea Nitrogen 13 mg/dL (9-20); Calcium 9.5 mg/dL (8.4-10.2); Carbon Dioxide 23 mmol/L (22-30); Chloride 103 mmol/L (98-107); Estimated CRCL calculation 80 ml/min; Estimated Glomerular Filt Rate > 60; Glucose 190 mg/dL (65-110); Potassium 4.4 mmol/L (3.4-5.0); Sodium 134 mmol/L (137-145)
[2021-05-27 15:02] LABS: Add Urine Microscopic? YES; Appearance Urine Clear (Clear); Bilirubin Urine Negative (Negative); Blood Urine Negative (Negative); Color Urine Amber (Yellow); Glucose Urine UA 1+ mg/dL (Negative); Ketones Urine Trace mg/dL (Negative); Leukocyte Esterase Ur Negative LEU/UL (Negative); Mucus Urine Heavy /lpf; Nitrate Urine Negative (Negative); Protein Urine 2+ mg/dL (Negative); RBC Urine 0-2 /hpf (0-2); Urobilinogen Urine Negative mg/dL (<2.0); WBC Urine 0-3 /hpf
[2021-05-27 15:04] LABS: Specific Grav Ur 1.038 (1.001-1.035)
[2021-05-27] MEDS: SODIUM CHLORIDE 0.9% IV 1,000 ML 999 ML IV CONT (16:55)
[2021-05-27] MEDS: KETOROLAC 30 MG/ML VIAL (*BKC) IV PUSH (17:23)
[2021-05-27 18:06] LABS: Lactic Acid Reflex 1.5 mmol/L (0.7-2.1)
--- NOTE | 2021-05-27 19:52 | PC.NURSE ---
Report received and care of pt assumed.
--- NOTE | 2021-05-27 21:10 | ADMGEN ---
This patient, Porfirio Chang, was admitted to Medical Room 349-01. Patient/family oriented to hospital policies and general routines including ID bracelet, bed and alarms, visiting hours, pain management, procedures, bathroom and other care routines, personal items, smoking policy, room service/diet, and visiting hours. Information on how to activate the Rapid Response Team has been discussed. Patient/Family are encouraged to report perceived risks to care and to ask questions if they do not understand what they are told or what they should do.
[2021-05-27] MEDS: ACETAMINOPHEN 325 MG TABLET 650 MG PO (22:20)
--- NOTE | 2021-05-27 23:20 | PM.IMHP ---
H&P: HPI History of Present Illness Date/Time: 05/27/21 23:20 Chief Complaint: fever Narrative: patient is here for evaluation of right flank pain and fever that started since Tuesday. He has been having profuse sweating along with his fever which goes as high as 103. Has been taking Tylenol for the pain. He had similar episode in October which was diagnosed with prostatitis and was treated with Bactrim. Was again recently treated for the same as an outpatient on April. He reports there is no pain in his scrotum. No burning in her urination or urgency or frequency. He also had recently generator changed on his ICD in February 2021. Denies any diarrhea nausea vomiting abdominal pain. No cough or shortness of breath and chest pain reported. Review of Systems Review of Systems: - CONSTITUTIONAL: Denies weight loss, Reports fever and chills. - HEENT: Denies changes in vision and hearing - RESPIRATORY: Denies SOB and cough. - CV: Denies palpitations and CP. - GI: Denies abdominal pain, nausea, vomiting and diarrhea. reports right flank pain - : Denies dysuria and urinary frequency. - MSK: Denies myalgia and joint pain. - SKIN: Denies rash and pruritus. - NEUROLOGICAL: Denies headache and syncope. - PSYCHIATRIC: Denies recent changes in mood. Denies anxiety and depression. All systems reviewed & are unremarkable except as noted in HPI and below Constitutional: Constitutional: Reports fatigue and Reports weakness Neurologic: Reports weakness Endocrine: Endocrine: Reports fatigue [facility] Past Medical History Medical History BMI 28.0-28.9,adult BMI 29.0-29.9,adult BMI 30.0-30.9,adult Chronic anticoagulation Headache, migraine Heart murmur HOCM (hypertrophic obstructive cardiomyopathy) s/p myomectomy Hyperlipidemia Hypertension ICD (implantable cardioverter-defibrillator) in place [employer], implanted by Dr. Waldrop 2104 Generator change 2020 DALIA (obstructive sleep apnea) Pacemaker complications Surgical History Surgical History Status post cardiac surgery HOCM s/p myomectomy Family History Family History (Updated 05/27/21 @ 21:27 by Yaritza Bermudez RN) Grandparent Family history of lung cancer Family history of coronary artery disease Hypertension Cerebrovascular accident Parkinson disease Father Acute myocardial infarction Hypertension Mother No problems noted. Sibling No problems noted. 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 Spiritual care concerns: No Meds Home Medications and Allergies Home Medications Medication Instructions Recorded Confirmed Type omega-3 fatty acids 1,000 mg 1,000 mg PO DAILY 03/12/20 05/27/21 History capsule tamsulosin 0.4 mg capsule 0.4 mg PO HS 01/15/21 05/27/21 History sotalol 80 mg PO Q12H 03/04/21 05/27/21 History furosemide 20 mg tablet 10 mg PO QAM #45 tablet 05/03/21 05/27/21 Rx testosterone 20.25 mg/1.25 gram 2 pump TOPICAL DAILY #75 g 05/11/21 05/27/21 Rx (1.62 %) transdermal gel pump sulfamethoxazole 800 1 tablet PO Q12H #56 tablet 0
[2021-05-28] VITALS (10 sets, daily range): BP systolic 114–131; BP diastolic 56–67; PULSE 73–82; RESP 14–18; TEMP 36.9–39; O2SAT 96–99; BMI 29.6
[2021-05-28] MEDS: SOTALOL HCL 80 MG TABLET PO ×3 (00:24→20:59)
[2021-05-28] MEDS: APIXABAN 5 MG TABLET PO (00:24)
[2021-05-28] MEDS: dilTIAZem HCL CD 180 MG CAP.ER.24H 360 MG PO ×2 (00:24→20:59)
[2021-05-28] MEDS: TAMSULOSIN HCL 0.4 MG CAPSULE PO ×2 (00:25→20:58)
[2021-05-28] MEDS: ATORVASTATIN 20 MG TABLET PO ×2 (00:25→20:58)
[2021-05-28] MEDS: ACETAMINOPHEN 325 MG TABLET 650 MG PO ×2 (04:33→17:55)
[2021-05-28 06:24] LABS: Hematocrit 40.7 % (42.0-52.0); Immature Platelet Fraction Pct 3.8 % (0.9-11.2); Mean Corpuscular HGB Conc 34.4 g/dl (32-36); Mean Corpuscular Hemoglobin 29.5 pg (26-34); Mean Corpuscular Volume 85.9 fl (80-100); Mean Platelet Volume 10.2 fl (7.4-10.4); Platelet Count Result 80 k/mm3 (150-375); Red Blood Count 4.74 M/mm3 (4.6-6.20); Red Cell Distribution Width 12.5 % (11.5-14.5)
[2021-05-28 06:39] LABS: Estimated CRCL calculation 97 ml/min; Estimated Glomerular Filt Rate > 60
[2021-05-28 06:46] LABS: White Blood Count 1.9 K/mm3 (4.5-10.0)
[2021-05-28 07:01] LABS: Band Neutrophils Percent 21 % (0-6); Metamyelocytes Percent 1 %; Monocytes Absolute Manual 0.05 K/mm3 (0.1-0.90); Monocytes Percent Manual 3 % (3-9); Neutrophils Absolute Manual 1.52 K/mm3 (1.3-6.7); Neutrophils Percent Manual 59 % (46-73); Total Cells Counted 100
[2021-05-28 07:02] LABS: Atypical Lymphocytes Present; Platelet Estimate Decreased (Adequate)
--- NOTE | 2021-05-28 07:14 | PM.IMPN ---
Progress Note: A&P Assessment and Plan (1) Fever of unknown origin (FUO): Code(s): R50.9 - Fever, unspecified Status: Acute (2) Leukocytopenia, unspecified: Qualifiers: Leukopenia type: other Qualified Code(s): D72.818 - Other decreased white blood cell count Code(s): D72.819 - Decreased white blood cell count, unspecified Status: Acute (3) Prediabetes: Code(s): R73.03 - Prediabetes Status: Acute (4) Prostatitis: Qualifiers: Prostatitis type: chronic Qualified Code(s): N41.1 - Chronic prostatitis Code(s): N41.9 - Inflammatory disease of prostate, unspecified Status: Acute (5) HOCM (hypertrophic obstructive cardiomyopathy): Code(s): I42.1 - Obstructive hypertrophic cardiomyopathy Status: Acute (6) Chronic anticoagulation: 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): 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 Status: Acute (7) ICD (implantable cardioverter-defibrillator) battery depletion: Code(s): Z45.02 - Encounter for adjustment and management of automatic implantable cardiac defibrillator Status: Acute (8) Chills: Code(s): R68.83 - Chills (without fever) Status: Acute (9) Essential hypertension: Code(s): I10 - Essential (primary) hypertension Status: Acute (10) Other pulmonary embolism with acute cor pulmonale: Code(s): I26.09 - Other pulmonary embolism with acute cor pulmonale Status: Acute (11) Sleep apnea, unspecified: Code(s): G47.30 - Sleep apnea, unspecified Status: Acute Additional Plan # Fever unclear source. UA negative. Chest x-ray negative. CT abdomen is negative reports right flank pain however CT is negative for any obvious sign of infection. Fever with shaking chills and profuse sweating. With history of repeated epididymitis and prostatitis in October 2020 for which he was treated with antibiotics 3 times. He is taking his 3rd course now. Will get ultrasound prostate. prostatomegaly seen on CT with out any evidence of epididymitis. No clinical evidence of epididymitis. His generator off his AICD was changed recently. Follow cultures. He is currently empirically on Zosyn and vancomycin. Infectious Disease service will be consulted. Will check C diff toxin in the urine. Will also check COVID-19 infection. # Leukopenia and thrombocytopenia. Hematology consult recommendations appreciated. He has been ordered to have bone marrow aspirate and biopsy. # Recent ICD generator change in February 2021 surgical incision well healed and nontender # HOCM (hypertrophic obstructive cardiomyopathy) s/p myomectomy # Hyperlipidemia continue Lipitor. # Hypertension continue diltiazem and sotalol. # paroxysmal atrial fibrillation on chronic anticoagulation. Will hold off Eliquis for now is he will need bone marrow biopsy with aspiration which has been ordered. # History of pulmonary embolism on anticoagulation with Eliquis # Obstructive sleep apnea on CPAP # Status post ICD placement # DVT prophylaxis on Eliquis already # Full code status Subjective Date/time seen: 05/28/21 07:14 He continued to have high-grade fever with a T-max 39.5?. His leukopenia and thrombocytopenia seems stable. He [place] on antibiotics. He has significant bandemia. He has mentioned an episode of diarrhea today. His C diff toxin will be checked in the stool. He denied to have any cough urinary symptoms abdominal pain chest pain shortness of breath. Review of Systems Review of Systems: All systems reviewed & are unremarkable except as noted in HPI and below Exam Narrative: GENERAL: The patient is well developed, not in acute distress HEENT: No discharge HEART: Regular rate and rhythm S1-S2 LUNGS: Clear to auscultation bilaterally. no respiratory distress ABDOMEN: Soft, positive bowel sounds, non-tender NEUROLOGIC: alert and oriented x 3, no gross motor deficits EXTREMITIES: no edema, cya
--- NOTE | 2021-05-28 08:17 | PDONCCN ---
HPI - Date of Consult Date/Time: 05/28/21 08:17 Requesting Physician: Mary Hart MD Primary Care Provider: Christiano Sandhu MD - Consult Narrative Reason for consult: Leukopenia and thrombocytopenia Narrative: Porfirio Chang is a 46 year old male with history of myomectomy done in 2014 and defibrillator placement. Patient was initially diagnosed with prostatitis and epididymitis in October of 2020 and was treated with course of antibiotic. At that time he was dealing with left testicular swelling and pain. Patient had recurrent of the symptoms about a month ago and was started back on Bactrim that he has been taking for that duration. Patient continues to have right flank pain and intermittent fever as high as 103 with profuse sweating and night sweats. He has lost 20 lb weight in last month's duration. Denies any cough. Denies any chest pain. Denies any symptoms of GI infection and UTI. Labs showed [place]BC [place] 1[place]9 [place] [address]. Denies any bleeding. Review of Systems - Review of Systems All systems reviewed & are unremarkable except as noted in HPI and bel - Neurologic Reports weakness [facility] Medical History: Medical History (Last Reviewed 05/27/21 @ 15:09 by Ashli Bryan PA-C) BMI 28.0-28.9,adult BMI 29.0-29.9,adult BMI 30.0-30.9,adult Chronic anticoagulation Headache, migraine Heart murmur HOCM (hypertrophic obstructive cardiomyopathy) s/p myomectomy Hyperlipidemia Hypertension ICD (implantable cardioverter-defibrillator) in place [employer], implanted by Dr. Waldrop 2104 Generator change 2020 DALIA (obstructive sleep apnea) Pacemaker complications Surgical History: Surgical History (Last Reviewed 05/27/21 @ 15:09 by Ashli Bryan PA-C) Status post cardiac surgery HOCM s/p myomectomy Family History: Family History (Last Updated 05/27/21 @ 21:27 by Yaritza Bermudez RN) Grandparent Family history of lung cancer Family history of coronary artery disease Hypertension Cerebrovascular accident Parkinson disease Father Acute myocardial infarction Hypertension Mother No problems noted. Sibling No problems noted. Daughter COVID-19 Other Family history of malignant neoplasm - Social History Social History: Social History (Last Reviewed 05/27/21 @ 15:09 by Ashli Bryan PA-C) Gender Identity: Gender identity (if verbalized by the patient): Male Sexual Orientation: Sexual Orientation (if Verbalized by the Patient): Straight or Heterosexual Alcohol Use: Alcohol intake: current Drinks per week: 1 Substance Use: Substance use: current Substance use type: marijuana Other substance usage details: medical marijuana Last use: 05/26/21; medical marijuana for neuropathy Others: Spiritual care concerns: No Smoking Status: Smoking status: Former smoker Tobacco type: cigarettes Smoking Pack-years: Smoking packs per day: 1 Smoking cigarettes per day: 20.0 Years smoked: 20 Smoking pack-years: 20.00 Meds Home Medications Medication Instructions Recorded Confirmed Type omega-3 fatty acids 1,000 mg 1,000 mg PO DAILY 03/12/20 05/27/21 History capsule tamsulosin 0.4 mg capsule 0.4 mg PO HS 01/15/21 05/27/21 History sotalol 80 mg PO Q12H 03/04/21 05/27/21 History furosemide 20 mg tablet 10 mg PO QAM #45 tablet 05/03/21 05/27/21 Rx testosterone 20.25 mg/1.25 gram 2 pump TOPICAL DAILY #75 g 05/11/21 05/27/21 Rx (1.62 %) transdermal gel pump sulfamethoxazole 800 1 tablet PO Q12H #56 tablet 05/15/21 05/27/21 Rx mg-trimethoprim 160 mg tablet apixaban [Eliquis] 5 mg PO BID 05/27/21 05/27/21 History atorvastatin 20 mg PO HS 05/27/21 05/27/21 History diltiazem HCl 360 mg PO HS 05/27/21 05/27/21 History Allergies Allergy/AdvReac Type Severity Reaction Status Date / Time No Known Drug Allergies Allergy Unknown none Verified 05/27/21 21:
[2021-05-28 10:13] LABS: Iron 20 ug/dL (49-181)
[2021-05-28 10:22] LABS: Percent Iron Saturation 8 % (20-50)
[2021-05-28] MEDS: OMEGA 3 POLYUNSAT FATTY ACIDS 1 GM CAP PO (10:40)
--- NOTE | 2021-05-28 13:48 | PC.NURSE ---
This patient, Porfirio Chang, was received from [3 med] on 05/28/21 at 1340. Patient/family oriented to unit policies and routines
[2021-05-28 21:52] LABS: SARS-CoV-2 RNA PCR Negative (Negative)
[2021-05-28 22:20] LABS: Lactate Dehydrogenase 744 U/L (313-618)
[2021-05-28 23:27] LABS: Folic Acid 13.8 ng/mL (2.76->20)
[2021-05-29] VITALS (8 sets, daily range): BP systolic 101–122; BP diastolic 48–76; PULSE 76–88; RESP 15–18; TEMP 36.8–38.2; O2SAT 96–99
[2021-05-29] MEDS: WATER FOR IRRIGATION, STERILE 1,000 ML BOTTLE 1000 ML (04:38)
--- NOTE | 2021-05-29 06:00 | ECHO_ITS ---
Patient Info Name: Porfirio Chang Age: 46 years : 1975 Gender: Male Ht: 72 in Wt: 218 lbs BSA: 2.26 m2 HR: 78 bpm BP: 112 / 76 mmHg Technical Quality: Good Exam Date: 05/29/2021 2:36 PM Exam Location: [facility] Room: 330 Patient Status: Inpatient Admit Date: 05/27/2021 Staff Ordering Physician: Ashli Bryan PA-C Industrial Security Analyst: Jen Rivas RDCS Attending Provider: Mary Hart MD Referring Physician: Ori Leonard MD; Exam Type: CA echo doppler color flow Study Info Indications - H/O HOCM S/P MYECTOMY FUO Complete two-dimensional, color flow and Doppler transthoracic echocardiogram is performed. Summary 1. Complete two-dimensional, color flow and Doppler transthoracic echocardiogram is performed. 2. Left ventricular chamber dimension is normal. 3. Left ventricular systolic function is normal, estimated at 65-70%. 4. There is mildly increased left ventricular wall thickness. 5. The left ventricular diastolic function is normal. 6. E/e' 9 is minimally elevated. 7. Linear artifact in right ventricle suggestive of catheter(s), pacemaker lead(s), or ICD lead(s). 8. Left atrial chamber dimension is moderately enlarged. 9. Linear artifact in the right atrium suggestive of catheter(s), pacemaker lead(s), or ICD lead(s). 10. Right atrial chamber dimension is mildly enlarged. 11. There is trace mitral valve regurgitation. 12. There is trace tricuspid valve regurgitation. 13. Mild pulmonary hypertension, estimated pulmonary arterial systolic pressure is 40 mmHg. Left Ventricle E/e' 9 is minimally elevated. Left ventricular chamber dimension is normal. Left ventricular systolic function is normal, estimated at 65-70%. There is mildly increased left ventricular wall thickness. The left ventricular diastolic function is normal. Right Ventricle Linear artifact in right ventricle suggestive of catheter(s), pacemaker lead(s), or ICD lead(s). Right ventricular chamber dimension is normal. Right ventricular systolic function is normal. Left Atria Left atrial chamber dimension is moderately enlarged. Right Atria Linear artifact in the right atrium suggestive of catheter(s), pacemaker lead(s), or ICD lead(s). Right atrial chamber dimension is mildly enlarged. Aortic Valve The aortic valve is trileaflet. There is no aortic valve stenosis. There is no aortic valve regurgitation. Pulmonic Valve There is no pulmonic regurgitation. Mitral Valve There is no mitral valve stenosis. There is trace mitral valve regurgitation. Tricuspid Valve There is trace tricuspid valve regurgitation. Mild pulmonary hypertension, estimated pulmonary arterial systolic pressure is 40 mmHg. Pericardium/Pleural There is no pericardial effusion. Inferior Vena Cava Normal inferior vena cava with >50% collapse upon inspiration consistent with normal right atrial pressure, 5 mmHg. Aorta The aortic root size at the sinus of Valsalva is normal. Left Ventricular Outflow Tract Name Value Normal LVOT 2D LVOT Diameter 2.1 cm Pulmonic Valve Name Value Normal
[2021-05-29 06:49] LABS: Basophils Percent Auto 0.5 % (0.2-1.2); Hematocrit 42.1 % (42.0-52.0); Hemoglobin 14.6 g/dL (14.0-18.0); Immature Platelet Fraction Pct 6.5 % (0.9-11.2); Lymphocytes Absolute Auto 0.47 K/mm3 (0.9-3.2); Lymphocytes Percent Auto 24.7 % (18.3-44.2); Mean Corpuscular HGB Conc 34.7 g/dl (32-36); Mean Corpuscular Hemoglobin 29.5 pg (26-34); Mean Corpuscular Volume 85.1 fl (80-100); Monocytes Absolute Auto 0.2 K/mm3 (0.1-0.6); Monocytes Percent Auto 8.4 % (2.6-8.5); Neutrophils Absolute Auto 1.3 K/mm3 (1.3-6.7); Neutrophils Percent Auto 66.4 % (45.5-73.1); Platelet Count Result 74 k/mm3 (150-375); Red Blood Count 4.95 M/mm3 (4.6-6.20); Red Cell Distribution Width 12.4 % (11.5-14.5)
[2021-05-29 06:55] LABS: White Blood Count 1.9 K/mm3 (4.5-10.0)
[2021-05-29 07:17] LABS: Anion Gap 7 mmol/L (8-16); Blood Urea Nitrogen 8 mg/dL (9-20); Calcium 9.1 mg/dL (8.4-10.2); Carbon Dioxide 26 mmol/L (22-30); Chloride 99 mmol/L (98-107); Estimated CRCL calculation 80 ml/min; Estimated Glomerular Filt Rate > 60; Glucose 126 mg/dL (65-110); Potassium 3.9 mmol/L (3.4-5.0); Sodium 132 mmol/L (137-145)
[2021-05-29] MEDS: SOTALOL HCL 80 MG TABLET PO ×2 (09:26→20:31)
[2021-05-29] MEDS: OMEGA 3 POLYUNSAT FATTY ACIDS 1 GM CAP PO (09:26)
--- NOTE | 2021-05-29 09:35 | WPDMODSED ---
Moderate Sedation Note-Pt Data Patient Data Allergies Allergy/AdvReac Type Severity Reaction Status Date / Time No Known Drug Allergies Allergy Unknown none Verified 05/27/21 21:22 Home Medications Medication Instructions Recorded Confirmed Type omega-3 fatty acids 1,000 mg 1,000 mg PO DAILY 03/12/20 05/27/21 History capsule tamsulosin 0.4 mg capsule 0.4 mg PO HS 01/15/21 05/27/21 History sotalol 80 mg PO Q12H 03/04/21 05/27/21 History furosemide 20 mg tablet 10 mg PO QAM #45 tablet 05/03/21 05/27/21 Rx testosterone 20.25 mg/1.25 gram 2 pump TOPICAL DAILY #75 g 05/11/21 05/27/21 Rx (1.62 %) transdermal gel pump sulfamethoxazole 800 1 tablet PO Q12H #56 tablet 05/15/21 05/27/21 Rx mg-trimethoprim 160 mg tablet apixaban [Eliquis] 5 mg PO BID 05/27/21 05/27/21 History atorvastatin 20 mg PO HS 05/27/21 05/27/21 History diltiazem HCl 360 mg PO HS 05/27/21 05/27/21 History Current Medications: Active Medications Acetaminophen (Acetaminophen 325 Mg Tablet) 650 mg PO Q4H PRN PRN Reason: Fever Last Admin: 05/28/21 17:55 Dose: 650 mg Documented by: Apixaban (Apixaban 5 Mg Tablet) 5 mg PO BID [facility] Last Admin: 05/28/21 13:48 Dose: Not Given Documented by: Atorvastatin Calcium (Atorvastatin 20 Mg Tablet) 20 mg PO [facility] Last Admin: 05/28/21 20:58 Dose: 20 mg Documented by: Diltiazem HCl (Diltiazem Hcl Cd 180 Mg Cap.Er.24h) 360 mg PO [facility] Stop: 06/27/21 23:51 Last Admin: 05/28/21 20:59 Dose: 360 mg Documented by: Fish Oil (Freeborn 3 Polyunsat Fatty Acids 1 Gm Cap) 1 gm PO DAILY [facility] Last Admin: 05/29/21 09:26 Dose: 1 gm Documented by: Piperacillin/Tazobactam/Dextrose (Zosyn 3.375 Gm/D5w 50ml Pm) 3.375 gm in 50 mls @ 100 mls/hr IVPB Q6HR [facility] Last Infusion: 05/29/21 05:56 Dose: Infused Documented by: Vancomycin HCl (Vancomycin 1,500 Mg/D5w 500 Ml) 1,500 mg in 500 mls @ 333.333 mls/hr IVPB Q12H [facility] Last Infusion: 05/29/21 02:36 Dose: Infused Documented by: Neomycin/Polymyxin/Bacitracin (Neomycin/Polymyxin/Bacitracin Ointment 15 Gm Tube) 1 applic TOPICAL PRN PRN PRN Reason: with dressing changes Non-Formulary Medication (Testosterone [Androgel]) 2 pump TOPICAL DAILY [facility] Stop: 06/27/21 09:01 Sotalol HCl (Sotalol Hcl 80 Mg Tablet) 80 mg PO Q12HR [facility] Last Admin: 05/29/21 09:26 Dose: 80 mg Documented by: Tamsulosin HCl (Tamsulosin Hcl 0.4 Mg Capsule) 0.4 mg PO HS [facility] Last Admin: 05/28/21 20:58 Dose: 0.4 mg Documented by: Sedation/Anesthesia: No previous sedation/anesthesia problems (including family history). [facility] Past Medical History Medical History BMI 28.0-28.9,adult BMI 29.0-29.9,adult BMI 30.0-30.9,adult Chronic anticoagulation Headache, migraine Heart murmur HOCM (hypertrophic obstructive cardiomyopathy) s/p myomectomy Hyperlipidemia Hypertension ICD (implantable cardioverter-defibrillator) in place [employer], implanted by Dr. Waldrop 2104 Generator change 2020 DALIA (obstructive sleep apnea) Pacemaker complications Surgical History Surgical History Status post cardiac surgery HOCM s/p myomectomy Family History Family History Grandparent Family history of lung cancer Family history of coronary artery disease Hypertension Cerebrovascular accident Parkinson disease Father Acute myocardial infarction Hypertension Mother No problems noted. Sibling No problems noted. 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 Smoking packs per day: 1 Smoking cigarettes per day: 20.0 Years smoked: 20 Smoking pack-years: 20.00 Smoking status: Former smoker Tobacco type: cigarettes Alcohol intake: current
[2021-05-29 09:36] LABS: Platelet Estimate Decreased (Adequate)
[2021-05-29 11:16] LABS: Vancomycin Trough 7.9 ug/mL (10.0-20.0)
--- NOTE | 2021-05-29 13:28 | PM.IMPN ---
Progress Note: A&P Assessment and Plan (1) Fever of unknown origin (FUO): Code(s): R50.9 - Fever, unspecified Status: Acute (2) Leukocytopenia, unspecified: Qualifiers: Leukopenia type: other Qualified Code(s): D72.818 - Other decreased white blood cell count Code(s): D72.819 - Decreased white blood cell count, unspecified Status: Acute (3) Prediabetes: Code(s): R73.03 - Prediabetes Status: Acute (4) Prostatitis: Qualifiers: Prostatitis type: chronic Qualified Code(s): N41.1 - Chronic prostatitis Code(s): N41.9 - Inflammatory disease of prostate, unspecified Status: Acute (5) HOCM (hypertrophic obstructive cardiomyopathy): Code(s): I42.1 - Obstructive hypertrophic cardiomyopathy Status: Acute (6) Chronic anticoagulation: Code(s): 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 Status: Acute (7) ICD (implantable cardioverter-defibrillator) battery depletion: Code(s): Z45.02 - Encounter for adjustment and management of automatic implantable cardiac defibrillator Status: Acute (8) Chills: Code(s): R68.83 - Chills (without fever) Status: Acute (9) Essential hypertension: Code(s): I10 - Essential (primary) hypertension Status: Acute (10) Other pulmonary embolism with acute cor pulmonale: Code(s): I26.09 - Other pulmonary embolism with acute cor pulmonale Status: Acute (11) Sleep apnea, unspecified: Code(s): G47.30 - Sleep apnea, unspecified Status: Acute Additional Plan # Fever unclear source. UA negative. Chest x-ray negative. CT abdomen is negative reports right flank pain however CT is negative for any obvious sign of infection. Fever with shaking chills and profuse sweating with history of repeated epididymitis and prostatitis in October 2020 for which he was treated with antibiotics 3 times. He was taking his 3rd course now before coming into the hospital. Prostatomegaly seen on CT with out any evidence of epididymitis. No clinical evidence of epididymitis. His generator of his AICD was changed recently. He is currently empirically on Zosyn and vancomycin. Infectious Disease service has been consulted but pending recommendation. Follow cultures. Will check C diff toxin in the stool. He had 1 episode of diarrhea with him being on antibiotics before coming into the hospital. COVID-19 test came back negative. # Leukopenia and thrombocytopenia. Hematology consult recommendations appreciated. Bone marrow aspiration and biopsy has been obtained today. I will resume his anticoagulation with Eliquis. # Recent ICD generator change in February 2021 surgical incision well healed and nontender # HOCM (hypertrophic obstructive cardiomyopathy) s/p myomectomy # Hyperlipidemia continue Lipitor. # Hypertension continue diltiazem and sotalol. # paroxysmal atrial fibrillation on chronic anticoagulation. Will continue Eliquis as he had bone marrow biopsy done today. # History of pulmonary embolism on anticoagulation with Eliquis # Obstructive sleep apnea on CPAP # Status post ICD placement # DVT prophylaxis on Eliquis already Chronic back pain. No significant change recently. I will order x-rays of the lumbar spine. Pain control with Tylenol. # Full code status Subjective Date/time seen: 05/29/21 13:28 He is doing well. He denied have any specific symptoms. He had fever spikes yesterday with a T-max of 39?. He denied have any chest pain shortness of breath cough abdominal pain nausea vomiting or urinary symptoms. He had his bone marrow biopsy done today. He tolerated the procedure very well. His COVID-19 test came back negative. Review of Systems Review of Systems: All systems reviewed & are unremarkable except as noted in HPI and below Exam Narrative: GENERAL: The patient is well developed, not in acute distress HEENT: No discharge HEART: Regular rate
--- NOTE | 2021-05-29 14:27 | WPDINFPN2 ---
Progress Note: A&P Assessment and Plan (1) Fever: Code(s): R50.9 - Fever, unspecified Status: Acute Assessment and Plan: Fever, I think very likely due to TMP-SMX hypersensitivity REC BCs and bone marrow in process. No empiric antibiotics. After recuperation, fosfomycin 3 grams po qMWF x 12 weeks (flouroquinolones relatively contraindicated) for his chronic prostatitis. Subjective Date/time seen: 05/29/21 14:27 Objective Data Vital Signs Vital Signs: Vital Signs - 24 hr 05/28/21 20:59 05/28/21 22:00 05/29/21 06:00 Temperature 37.3 C 37.4 C Pulse Rate 76 73 88 Respiratory Rate 18 18 Blood Pressure 114/67 115/68 Pulse Oximetry 98 99 05/29/21 09:26 05/29/21 10:05 05/29/21 10:15 Temperature Pulse Rate 88 78 78 Respiratory Rate 15 16 Blood Pressure 120/64 122/48 L Pulse Oximetry 99 99 05/29/21 10:30 Temperature Pulse Rate 77 Respiratory Rate 15 Blood Pressure 112/76 Pulse Oximetry 97 Intake/Output Intake/Output: Intake & Output 05/26/21 05/27/21 05/28/21 05/29/21 23:59 23:59 23:59 23:59 Intake Total 1250 2190 1200 Output Total 650 Balance 1250 1540 1200 Meds/Results Medications: Active Medications Generic Name Dose Route Start Last Admin Trade Name Freq PRN Reason Stop Dose Admin Acetaminophen 650 mg 05/27/21 18:31 05/28/21 17:55 Acetaminophen 325 Mg Tablet PO 650 mg Q4H PRN Administration Fever Apixaban 5 mg 05/27/21 23:50 05/28/21 13:48 Apixaban 5 Mg Tablet PO Not Given BID SAMEER Atorvastatin Calcium 20 mg 05/27/21 23:50 05/28/21 20:58 Atorvastatin 20 Mg Tablet PO 20 mg HS SAMEER Administration Diltiazem HCl 360 mg 05/27/21 23:50 05/28/21 20:59 Diltiazem Hcl Cd 180 Mg Cap.Er.24h PO 06/27/21 23:51 360 mg HS SAMEER Administration Fish Oil 1 gm 05/28/21 09:00 05/29/21 09:26 [place] 3 Polyunsat Fatty Acids 1 Gm Cap PO 1 gm DAILY SAMEER Administration Piperacillin/Tazobactam/Dextrose 3.375 gm in 50 mls @ 100 mls/hr 05/28/21 00:10 05/29/21 12:37 Zosyn 3.375 Gm/D5w 50ml Pm IVPB Infused Q6HR SAMEER Infusion Vancomycin HCl 1,750 mg in 500 mls @ 250 mls/hr 05/29/21 13:00 05/29/21 13:45 Vancomycin 1,750 Mg/D5w 500 Ml IVPB 250 mls/hr Q12H SAMEER Administration Neomycin/Polymyxin/Bacitracin 1 applic 05/28/21 08:24 Neomycin/Polymyxin/Bacitracin Ointment 15 Gm Tube TOPICAL PRN PRN with dressing changes Non-Formulary Medication 2 pump 05/28/21 09:00 Testosterone [Androgel] TOPICAL 06/27/21 09:01 DAILY SAMEER Sotalol HCl 80 mg 05/27/21 23:50 05/29/21 09:26 Sotalol Hcl 80 Mg Tablet PO 80 mg Q12HR SAMEER Administration Tamsulosin HCl 0.4 mg 05/27/21 23:50 05/28/21 20:58 Tamsulosin Hcl 0.4 Mg Capsule PO 0.4 mg HS SAMEER Administration Radiology Results: ITS Impressions Abdomen/Pelvis CT 05/27/21 15:22 IMPRESSION: 1. No etiology for the patient's symptoms. Chest X-Ray 05/27/21 15:25 IMPRESSION: 1. No acute cardiopulmonary disease. Biopsy,Fluoroscopy Guided 05/29/21 10:46 IMPRESSION: 1. Successful fluoro-guided bone marrow aspiration. 2. Successful fluoro-guided bone marrow core biopsy. Labs Labs: Laboratory Results - last 24 hr 05/28/21 05/28/21 05/28/21 08:42 08:42 16:41 WBC RBC Hgb Hct MCV MCH MCHC RDW Plt Count MPV Immature Gran % (Auto) Neut % (Auto) Lymph % (Auto) Boyd % (Auto) Eos % (Auto) Baso % (Auto) Lymph # (Auto) Boyd # (Auto) Eos # (Auto) Baso # (Auto) Abs Immat Gran (auto) Absolute Neuts (auto) Absolute Nucleated RBC Nucleated RBC % Platelet Estimate % Immature Plt Fraction Sodium Potassium Chloride Carbon Dioxide Anion Gap BUN Creatinine Estim Creat Clear Calc Estimated GFR Glucose Calcium % Saturation 8 L Ferritin 682.00 H Lactate Dehydrogenase 744 H Jordyn
[2021-05-29] MEDS: APIXABAN 5 MG TABLET PO (18:06)
[2021-05-29 20:11] LABS: SARS-CoV-2 RNA PCR Negative
[2021-05-29] MEDS: TAMSULOSIN HCL 0.4 MG CAPSULE PO (20:31)
[2021-05-29] MEDS: dilTIAZem HCL CD 180 MG CAP.ER.24H 360 MG PO (20:31)
[2021-05-29] MEDS: ATORVASTATIN 20 MG TABLET PO (20:31)
--- NOTE | 2021-05-29 20:50 | CONS_ITS ---
DATE OF CONSULTATION: 05/29/2021 REASON FOR CONSULTATION: Fever. HISTORY OF PRESENT ILLNESS: A 46-year-old male, previous AICD placement and partial myomectomy for IHSS. He developed left testicular pain in October of this year and was diagnosed with epididymitis, supported by a testicular ultrasound. He received 2 courses of trimethoprim sulfa at the time, second one lasting about 4 weeks. Since then, he has had erectile dysfunction and pain with seated position, the pain being in the perineum. He denies any voiding complaints. He saw Dr. Sandhu's PA approximately 3-1/2 weeks ago and the trimethoprim sulfa was restarted 4-week course. His symptoms had not improved, but not worsened. He began feeling acutely ill 3 days before admission with fever up to 38.4 and chills, fever jassi up to 40.0 on the day prior to admission with chills and presented to the emergency room, was admitted on the . For unknown reasons, he was given piperacillin and vancomycin. He remains on those now. Had multiple blood test abnormalities and he underwent bone marrow aspirate and breast biopsy as well performed today by IR. He has had no skin rashes, sore throat, ill household contacts, adenopathy subjectively, abdominal pain, testicular pain, or myalgias. He used to rahman and fish, but less activity since his cardiac surgery. He still enjoys working outside in the garden. He has had no significant trauma associated with that and no insect bites that stick out his mind. He has had no wild animal exposures. No previous episodes of FUO. No previous BSI. ALLERGIES: NONE KNOWN. HABITS: Social drinker, medical marijuana. Quit smoking. CURRENT MEDICATIONS: As above. No immunosuppressants. PAST MEDICAL HISTORY: Chronic back pain, migraine headaches, HOCM, hyperlipidemia, hypertension, DALIA. FAMILY HISTORY: Stroke, CAD, cancer, hypertension, Parkinson's. 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 Lives locally. REVIEW OF SYSTEMS: 14-point review otherwise negative. PHYSICAL EXAMINATION: GENERAL: This is a middle-aged male who appears younger than his actual age. No respiratory distress. VITAL SIGNS: On arrival, temperature was normal. Later that day jassi up to 39.4. In the last 24 hours, T-max 39.5. SKIN: Tanned, several abrasions on his extremities without evidence of infection. No rashes. Warm and dry. NODES: He has no axillary or cervical adenopathy. EENT: Conjunctivae are normal. Pupils equal, round, and reactive to light. The oropharynx, oral mucosa normal. Teeth in excellent repair. No paranasal sinus erythema, edema or tenderness. NECK: No meningismus, mass or thyromegaly. LUNGS: Clear to auscultation and percussion. Good air entry. BACK: No spinal tenderness. No CVAT. CARDIAC: Regular rate and rhythm with a hyperdynamic precordium. No murmurs, no gallops. Pulses are 2+, equal. ABDOMEN: Nontender, soft. No organomegaly. No masses. Nondistended. EXTREMITIES: Well perfused. No clubbing, cyanosis, or edema. MUSCULOSKELETAL: No active joint inflammation. LABORATORY DATA: Urine cultures from 10/13 and 04/15, both no growth. Blood cultures from 05/27, no growth after short incubation. His white count 1.9, hemoglobin 14.6, platelets are 74,000. Sodium 132, glucose 126, otherwise chemistry panel is normal. Urinalysis, 2+ protein, otherwise no evidence of infection. LDH 744. Iron low, TIBC low, ferritin high. Hemoglobin A1c 6 weeks ago was 6.1%. RADIOLOGY: Chest x-ray and chest, abdomen, pelvic CT taken together show median sternotomy and large prostate gland, mild spondylosis. Otherwise normal. ASSESSMENT: 1. Fever, acute onset, I think is due to sulfa hypersensitivity reaction. Less likel
[2021-05-29] MEDS: ACETAMINOPHEN 325 MG TABLET 650 MG PO (22:03)
[2021-05-30 06:00] VITALS: BP 115/63; PULSE 65; RESP 18; TEMP 37.5; O2SAT 97
[2021-05-30 07:03] LABS: Basophils Percent Auto 1.8 % (0.2-1.2); Hematocrit 40.2 % (42.0-52.0); Hemoglobin 14.1 g/dL (14.0-18.0); Immature Granulocyte Absolute 0.01 K/mm3 (0.00-0.031); Immature Granulocyte Percent A 0.5 % (0-0.5); Immature Platelet Fraction Pct 7.7 % (0.9-11.2); Lymphocytes Absolute Auto 0.73 K/mm3 (0.9-3.2); Lymphocytes Percent Auto 33.3 % (18.3-44.2); Mean Corpuscular HGB Conc 35.1 g/dl (32-36); Mean Corpuscular Hemoglobin 29.3 pg (26-34); Mean Corpuscular Volume 83.4 fl (80-100); Mean Platelet Volume 11.7 fl (7.4-10.4); Monocytes Absolute Auto 0.3 K/mm3 (0.1-0.6); Monocytes Percent Auto 11.4 % (2.6-8.5); Neutrophils Absolute Auto 1.2 K/mm3 (1.3-6.7); Platelet Count Result 54 k/mm3 (150-375); Red Blood Count 4.82 M/mm3 (4.6-6.20); Red Cell Distribution Width 12.2 % (11.5-14.5); White Blood Count 2.2 K/mm3 (4.5-10.0)
[2021-05-30 07:10] LABS: Anion Gap 8 mmol/L (8-16); Blood Urea Nitrogen 14 mg/dL (9-20); Calcium 8.8 mg/dL (8.4-10.2); Carbon Dioxide 26 mmol/L (22-30); Chloride 96 mmol/L (98-107); Estimated CRCL calculation 80 ml/min; Estimated Glomerular Filt Rate > 60; Glucose 116 mg/dL (65-110); Potassium 3.6 mmol/L (3.4-5.0); Sodium 130 mmol/L (137-145)
[2021-05-30 10:11] VITALS: PULSE 65
[2021-05-30] MEDS: OMEGA 3 POLYUNSAT FATTY ACIDS 1 GM CAP PO (10:11)
[2021-05-30] MEDS: SOTALOL HCL 80 MG TABLET PO (10:11)
[2021-05-30] MEDS: APIXABAN 5 MG TABLET PO (10:11)
--- NOTE | 2021-05-30 13:03 | PM.DS ---
DS: Admitting Diagnosis Admitting Diagnosis High-grade fever Leukopenia and thrombocytopenia Pre diabetes Chronic prostatitis HOCM status post surgical myomectomy Status post ICD placement Chronic anticoagulation Hypertension Obstructive sleep apnea on CPAP DS: Discharge Diagnosis Discharge Diagnosis (1) Fever of unknown origin (FUO): Code(s): R50.9 - Fever, unspecified Status: Inactive (2) Leukocytopenia, unspecified: Qualifiers: Leukopenia type: other Qualified Code(s): D72.818 - Other decreased white blood cell count Code(s): D72.819 - Decreased white blood cell count, unspecified Status: Acute (3) Prediabetes: Code(s): R73.03 - Prediabetes Status: Acute (4) Prostatitis: Qualifiers: Prostatitis type: chronic Qualified Code(s): N41.1 - Chronic prostatitis Code(s): N41.9 - Inflammatory disease of prostate, unspecified Status: Acute (5) HOCM (hypertrophic obstructive cardiomyopathy): Code(s): I42.1 - Obstructive hypertrophic cardiomyopathy Status: Acute (6) Chronic anticoagulation: Code(s): 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 Status: Acute (7) ICD (implantable cardioverter-defibrillator) battery depletion: Code(s): Z45.02 - Encounter for adjustment and management of automatic implantable cardiac defibrillator Status: Acute (8) Chills: Code(s): R68.83 - Chills (without fever) Status: Acute (9) Essential hypertension: Code(s): I10 - Essential (primary) hypertension Status: Acute (10) Other pulmonary embolism with acute cor pulmonale: Code(s): I26.09 - Other pulmonary embolism with acute cor pulmonale Status: Acute (11) Sleep apnea, unspecified: Code(s): G47.30 - Sleep apnea, unspecified Status: Acute Assessment and Plan: # Fever unclear source. UA negative. Chest x-ray negative. CT abdomen is negative reports right flank pain however CT is negative for any obvious sign of infection. Fever with shaking chills and profuse sweating with history of repeated epididymitis and prostatitis in October 2020 for which he was treated with antibiotics 3 times. He was taking his 3rd course now before coming into the hospital. Prostatomegaly seen on CT with out any evidence of epididymitis. No clinical evidence of epididymitis. His generator of his AICD was changed recently. He was on vancomycin and Zosyn while he was in the hospital which has been stopped at the time of discharge. His Bactrim has been stopped already. Infectious Disease service recommendations appreciated. They think that it is secondary to sulfa hypersensitivity reaction with other possible differentials as well. They recommended to stop antibiotics. Follow cultures which has been negative so far. COVID-19 test came back negative. He had 1 episode of diarrhea and wanted to send C diff toxin but he did give us any further specimen of stool. His fever curve trended down and had 1 fever spike of 39.2 in the last 24 hour. He has been afebrile today. He is feeling better and wants to go home. Infectious disease service recommended possible treatment with fosfomycin 3 times a week for 12 weeks if he continued to have prostatitis and his current active issues gets resolved. He will see Infectious Disease as an outpatient to further discuss. # Leukopenia and thrombocytopenia. Hematology consult recommendations appreciated. Bone marrow aspiration and biopsy has been obtained on 05/29. I will resume his anticoagulation with Eliquis. He will follow with Hematology as an outpatient in a week time to discuss the report of his bone marrow aspiration and biopsy. # Recent ICD generator change in February 2021 surgical incision well healed and nontender # HOCM (hypertrophic obstructive cardiomyopathy) s/p myomectomy # Hyperlipidemia continue Lipitor. # Hypertension continue diltiazem and sot
== END 2021-05-30 13:40 | disposition home or self-care (01) | DRG 864 ==
LOC: ANHED 18:42 → ANH3MED 21:39 → ANH3MEDSUR 05-29 06:48 → ANH3MED 06-01 16:20 → ANH3MEDSUR 06-01 16:20
PROVIDERS: Emergency Medicine; Internal Medicine; Physician Assistant; Radiology Diagnostic Radiology; Admitting Provider Family Medicine; Emergency Provider General Practice; PCP Family Medicine; Referring Provider Internal Medicine Hematology & Oncology; Visit Provider Internal Medicine Critical Care Medicine
PROC: 07DR3ZX Extraction of Iliac Bone Marrow, Percutaneous Approach, Diagnostic (ICD-10-PCS; principal; 2021-05-29 09:30)
DX: R50.9 Fever, unspecified (principal); I42.1 Obstructive hypertrophic cardiomyopathy; Z20.822 Contact with and (suspected) exposure to COVID-19; D72.818 Other decreased white blood cell count; D69.6 Thrombocytopenia, unspecified; N41.1 Chronic prostatitis; I10 Essential (primary) hypertension; G47.30 Sleep apnea, unspecified; I48.0 Paroxysmal atrial fibrillation; G47.33 Obstructive sleep apnea (adult) (pediatric); E78.5 Hyperlipidemia, unspecified; R73.03 Prediabetes; Z79.01 Long term (current) use of anticoagulants; Z95.810 Presence of automatic (implantable) cardiac defibrillator; Z86.711 Personal history of pulmonary embolism; Z87.891 Personal history of nicotine dependence
CPT/HCPCS: 36415; 38222; 71046; 72100; 74176; 80048; 80202; 81001; 82565; 82607; 82728; 82746; 83540; 83550; 83605; 83615; 85025; 85055; 87040; 88184; 88185; 88305; 88311; 88313; 88341; 88342; 88364; 88365; 93306; 96361; 96374; 99285; A9270; C9803; J1642; J1885; J2543; J3010; J3370; J7030; J7040; U0003; U0005

== ENCOUNTER 2021-06-08 09:15 | Outpatient (CLI) | payer OTHER, MEDICARE, SELFPAY ==
[2021-06-08 09:43] LABS: Basophils Absolute Auto 0.1 K/mm3 (0.0-0.1); Basophils Percent Auto 1.7 % (0.2-1.2); Eosinophils Percent Auto 0.1 % (0-4.4); Hematocrit 40.1 % (42.0-52.0); Hemoglobin 13.8 g/dL (14.0-18.0); Immature Granulocyte Absolute 0.06 K/mm3 (0.00-0.031); Immature Granulocyte Percent A 0.8 % (0-0.5); Immature Platelet Fraction Pct 6.9 % (0.9-11.2); Lymphocytes Absolute Auto 5.13 K/mm3 (0.9-3.2); Lymphocytes Percent Auto 72.3 % (18.3-44.2); Mean Corpuscular HGB Conc 34.4 g/dl (32-36); Mean Corpuscular Hemoglobin 29.2 pg (26-34); Mean Corpuscular Volume 84.8 fl (80-100); Mean Platelet Volume 11.5 fl (7.4-10.4); Monocytes Absolute Auto 0.4 K/mm3 (0.1-0.6); Monocytes Percent Auto 6.2 % (2.6-8.5); Neutrophils Absolute Auto 1.3 K/mm3 (1.3-6.7); Neutrophils Percent Auto 18.9 % (45.5-73.1); Platelet Count Result 151 k/mm3 (150-375); Red Blood Count 4.73 M/mm3 (4.6-6.20); Red Cell Distribution Width 13.4 % (11.5-14.5); White Blood Count 7.1 K/mm3 (4.5-10.0)
[2021-06-08 10:18] LABS: Erythrocyte Sedimentation Rate 27 mm/hr (0-20)
[2021-06-08 10:36] LABS: CRP 2.4 mg/dL (<1.0)
== END 2021-06-08 09:16 | disposition home or self-care (01) ==
LOC: ANHLAB 09:23
PROVIDERS: PCP Family Medicine; Visit Provider Nurse Practitioner Family
DX: G47.00 Insomnia, unspecified (principal); R50.9 Fever, unspecified; D72.818 Other decreased white blood cell count; R79.89 Other specified abnormal findings of blood chemistry; R73.03 Prediabetes
CPT/HCPCS: 36415; 82533; 85025; 85055; 85652; 86038; 86140

== ENCOUNTER 2021-06-25 15:38 | Outpatient (CLI) | payer OTHER, MEDICARE, SELFPAY ==
[2021-06-25 15:58] LABS: Basophils Absolute Auto 0.1 K/mm3 (0.0-0.1); Basophils Percent Auto 0.7 % (0.2-1.2); Eosinophils Absolute Auto 0.2 K/mm3 (0-0.3); Eosinophils Percent Auto 2.6 % (0-4.4); Hematocrit 38.5 % (42.0-52.0); Hemoglobin 13.5 g/dL (14.0-18.0); Immature Granulocyte Absolute 0.01 K/mm3 (0.00-0.031); Immature Granulocyte Percent A 0.1 % (0-0.5); Lymphocytes Absolute Auto 3.74 K/mm3 (0.9-3.2); Lymphocytes Percent Auto 51.4 % (18.3-44.2); Mean Corpuscular HGB Conc 35.1 g/dl (32-36); Mean Corpuscular Hemoglobin 29.4 pg (26-34); Mean Corpuscular Volume 83.9 fl (80-100); Mean Platelet Volume 9.1 fl (7.4-10.4); Monocytes Absolute Auto 0.5 K/mm3 (0.1-0.6); Monocytes Percent Auto 6.3 % (2.6-8.5); Neutrophils Absolute Auto 2.8 K/mm3 (1.3-6.7); Neutrophils Percent Auto 38.9 % (45.5-73.1); Platelet Count Result 160 k/mm3 (150-375); Red Blood Count 4.59 M/mm3 (4.6-6.20); Red Cell Distribution Width 13.2 % (11.5-14.5); White Blood Count 7.3 K/mm3 (4.5-10.0)
== END 2021-06-25 15:39 | disposition home or self-care (01) ==
LOC: ANHLAB 15:46
PROVIDERS: PCP Family Medicine; Visit Provider Internal Medicine Hematology & Oncology
DX: D61.818 Other pancytopenia (principal)
CPT/HCPCS: 36415; 85025

== ENCOUNTER 2021-07-23 13:05 | Outpatient (CLI) | payer OTHER, MEDICARE, SELFPAY | END 2021-07-23 13:06 | disposition home or self-care (01) | LOC: ANHLAB 13:07 | PROVIDERS: PCP Family Medicine; Visit Provider Internal Medicine Infectious Disease | DX: R50.9 Fever, unspecified (principal) | CPT/HCPCS: 87040 ==

== ENCOUNTER 2021-08-05 09:49 | Outpatient (CLI) | payer OTHER, MEDICARE, SELFPAY ==
--- NOTE | 2021-08-05 11:00 | NEURO_ITS ---
Impression: # Complains of numbness of hands. # Right Carpal Tunnel Syndrome. # Left evolving Carpal Tunnel Syndrome. # Bilateral ulnar neuropathy across the elbows. Nerve Conduction Studies Anti Sensory Summary Table Stim Site NR Peak (ms) P-T Amp (?V) Site1 Site2 Delta-P (ms) Dist (cm) Shai (m/s) Left Median Anti Sensory (2-3nd Digit) Wrist 3.3 57.3 Wrist 2-3nd Digit 3.3 14.0 42 Wrist 3.4 50.2 Wrist 2-3nd Digit 3.3 14.0 42 Right Median Anti Sensory (2-3nd Digit) Wrist 3.5 42.0 Wrist 2-3nd Digit 3.5 14.0 40 Wrist 3.4 30.0 Wrist 2-3nd Digit 3.5 14.0 40 Left Radial Anti Sensory (Base 1st Digit) Wrist 2.2 32.4 Wrist Base 1st Digit 2.2 0.0 Right Radial Anti Sensory (Base 1st Digit) Wrist 2.4 12.6 Wrist Base 1st Digit 2.4 0.0 Left Ulnar Anti Sensory (5th Digit) Wrist 2.7 38.3 Wrist 5th Digit 2.7 14.0 52 Right Ulnar Anti Sensory (5th Digit) Wrist 2.8 29.7 Wrist 5th Digit 2.8 14.0 50 Motor Summary Table Stim Site NR Onset (ms) O-P Amp (mV) Site1 Site2 Delta-0 (ms) Dist (cm) Shai (m/s) Left Median Motor (Abd Poll Brev) Wrist 3.9 6.0 Elbow Wrist 5.0 31.0 62 Elbow 8.9 5.1 Right Median Motor (Abd Poll Brev) Wrist 4.3 4.5 Elbow Wrist 5.3 31.0 58 Elbow 9.6 4.1 Left Ulnar Motor (Abd Dig Minimi) Wrist 2.8 6.3 A Elbow Wrist 6.1 31.0 51 A Elbow 8.9 5.0 B Elbow Wrist 4.5 27.0 60 B Elbow 7.3 5.4 Right Ulnar Motor (Abd Dig Minimi) Wrist 3.0 5.4 A Elbow Wrist 6.1 32.0 52 A Elbow 9.1 3.0 B Elbow Wrist 4.7 25.0 53 B Elbow 7.7 3.8 F Wave Studies NR F-Lat (ms) L-R F-Lat (ms) Left Median (Mrkrs) (Abd Poll Brev) 29.77 0.06 Right Median (Mrkrs) (Abd Poll Brev) 29.83 0.06 Left Ulnar (Mrkrs) (Abd Dig Min) 29.73 0.47 Right Ulnar (Mrkrs) (Abd Dig Min) 29.26 0.47 EMG Side Muscle Nerve Root Ins Act Fibs Amp Dur Recrt Comment Right 1stDorInt Ulnar C8-T1 Nml Nml Nml >12ms Reduced Right Ext Indicis Radial (Post Int) C7-8 Nml Nml Nml Nml Nml Right Ext Digitorum Radial (Post Int) C7-8 Nml Nml Nml Nml Nml Right BrachioRad Radial C5-6 Nml Nml Nml Nml Nml Right PronatorTeres Median C6-7 Nml Nml Nml Nml Nml Right Abd Poll Brev Median C8-T1 Nml Nml Nml Nml Nml Left 1stDorInt Ulnar C8-T1 Nml Nml Nml Nml Nml Left Ext Indicis Radial (Post Int) C7-8 Nml Nml Nml Nml Nml Left Ext Digitorum Radial (Post Int) C7-8 Nml Nml Nml Nml Nml Left BrachioRad Radial C5-6 Nml Nml Nml Nml Nml Left PronatorTeres Median C6-7 Nml Nml Nml Nml Nml Left Abd Poll Brev Median C8-T1 Nml Nml Nml Nml Nml MTDD
== END 2021-08-05 09:50 | disposition home or self-care (01) ==
LOC: ANHNEURO 09:49
PROVIDERS: PCP Family Medicine; Visit Provider Nurse Practitioner Family
DX: R20.0 Anesthesia of skin (principal); G56.03 Carpal tunnel syndrome, bilateral upper limbs
CPT/HCPCS: 95886; 95911

== ENCOUNTER 2021-11-03 10:37 | Outpatient (CLI) | payer OTHER, MEDICARE, SELFPAY ==
[2021-11-03 18:15] LABS: Hemoglobin A1C 6.3 % (<5.7)
== END 2021-11-03 10:38 | disposition home or self-care (01) ==
PROVIDERS: PCP Family Medicine; Visit Provider Internal Medicine Endocrinology, Diabetes & Metabolism
DX: E78.5 Hyperlipidemia, unspecified (principal); G47.33 Obstructive sleep apnea (adult) (pediatric); I10 Essential (primary) hypertension; I42.1 Obstructive hypertrophic cardiomyopathy; I48.0 Paroxysmal atrial fibrillation; R73.03 Prediabetes; R89.9 Unspecified abnormal finding in specimens from other organs, systems and tissues; Z68.30 Body mass index [BMI] 30.0-30.9, adult; Z98.890 Other specified postprocedural states; Z99.89 Dependence on other enabling machines and devices
CPT/HCPCS: 36415; 83036; 84443

== ENCOUNTER 2022-03-15 19:01 | Emergency (ER) | payer OTHER, MEDICARE, SELFPAY ==
--- NOTE | ~2022-03-15 | XR_ITS ---
EXAMINATION: XR foot LT min 3V DATE: 03/15/2022 20:05 INDICATION: Left foot pain TECHNIQUE: Dorsoplantar, lateral, and 2 oblique views of the left foot were obtained. COMPARISON: None. FINDINGS: Bone alignment is normal. There is no fracture. A plantar calcaneal enthesophyte is noted. There is mild osteoarthritis of the first metatarsophalangeal joint. IMPRESSION: 1. No acute osseous abnormality. Reviewed, dictated and finalized at location F.
--- NOTE | ~2022-03-15 | XR_ITS ---
EXAMINATION: XR ankle LT min 3V DATE: 03/15/2022 20:05 INDICATION: Left ankle pain TECHNIQUE: Anteroposterior, lateral, mortise, and additional oblique view of the ankle were obtained. COMPARISON: None. FINDINGS: Bone alignment is normal. There is no fracture. Soft tissue swelling is present. A plantar calcaneal enthesophyte is noted. IMPRESSION: 1. Soft tissue swelling without acute osseous abnormality. Reviewed, dictated and finalized at location F.
--- NOTE | 2022-03-15 19:31 | ED.LOWEXIN ---
HPI - Extremity Injury (Lower) General Chief Complaint: Extremity Injury, Lower Stated Complaint: LT ankle Time Seen by Provider: 03/15/22 19:31 Source: patient Mode of arrival: ambulatory Limitations: no limitations History of Present Illness HPI Narrative: 46-year-old male with a history hypertension, dyslipidemia hypertrophic obstructive cardiomyopathy status post ICD, atrial fibrillation,diastolic dysfunction, anxiety presents to the ER after he twisted his left foot at 3:00 p.m. while walking and presents with -- left foot pain and swelling -- left ankle pain unable to put weight on his left lower extremity MD complaint: ankle injury and foot injury Injury: Left: ankle and foot Type of Injury: inversion Place: street/outdoors Relieving factors: nothing Exacerbating factors: nothing Associated symptoms: swelling Other symptoms: none Related Data Home Medications Medication Instructions Recorded Confirmed omega-3 fatty acids 1,000 mg 1,000 mg PO DAILY 03/12/20 03/15/22 capsule (Fish Oil Concentrate) tamsulosin 0.4 mg capsule (Flomax) 0.4 mg PO HS 01/15/21 03/15/22 apixaban 5 mg tablet (Eliquis) 5 mg PO BID 05/27/21 03/15/22 diltiazem HCl 360 mg 360 mg PO HS 05/27/21 03/15/22 capsule,extended release 24 hr Allergies Allergy/AdvReac Type Severity Reaction Status Date / Time Sulfa (Sulfonamide AdvReac Severe Fever and Verified 03/15/22 20:17 Antibiotics) bicytopenia Review of Systems Review of Systems: All systems reviewed & are unremarkable except as noted in HPI and below Constitutional: Constitutional: Reports as per HPI and Reports no additional constitutional complaints Eyes: Eyes: Reports as per HPI and Reports no additional eye complaints ENT: Reports system reviewed and no additional complaints, except as documented and Reports as per HPI Cardiovascular: Cardiovascular: Reports as per HPI and Reports no additional cardiovascular complaints Respiratory: Respiratory: Reports as per HPI and Reports no additional respiratory complaints Gastrointestinal: Gastrointestinal: Reports as per HPI and Reports no additional gastrointestinal complaints Genitourinary: Genitourinary: Reports no additional male genitourinary complaints and Reports as per HPI Musculoskeletal: Musculoskeletal: Reports no additional musculoskeletal complaints and Reports as per HPI Integumentary/Breasts: Skin/Breast: Reports system reviewed and no additional complaints, except as docu and Reports as per HPI Comments: abrasion over right foot from an unrelated injury Neurologic: Reports system reviewed and no additional complaints, except as documented and Reports as per HPI Psychiatric: Psychiatric: Reports no additional psychiatric complaints and Reports as per HPI Endocrine: Endocrine: Reports no additional endocrine complaints and Reports as per HPI Hematologic/Lymphatic: Hematologic/Lymphatic: Reports no additional hematologic/lymphatic complaints and Reports as per HPI Allergic/Immunologic: Allergic/Immunologic: Reports no additional allergic/immunologic complaints and Reports as per HPI [facility] Past Medical History Medical History BMI 28.0-28.9,adult BMI 29.0-29.9,adult BMI 30.0-30.9,adult BMI greater than 30 Chronic anticoagulation Fever of unknown origin (FUO) Headache, migraine Heart murmur HOCM (hypertrophic obstructive cardiomyopathy) s/p myomectomy Hyperlipidemia Hypertension ICD (implantable cardioverter-defibrillator) in place [employer], implanted by Dr. Waldrop [id number] Generator change 2020 DALIA (obstructive sleep apnea) Pacemaker complications Surgical History Surgical History Status post cardiac surgery HOCM s/p myomectomy Family History Family History Grandparent Family history of lung cancer Family history
[2022-03-15 19:45] VITALS: BP 159/98; PULSE 68; RESP 17; TEMP 36.6; O2SAT 98
[2022-03-15] MEDS: TETANUS,DIPHTHERIA,AC PERTUSSIS ADULT 0.5 ML (ADACEL) IM (20:01)
[2022-03-15] MEDS: traMADol HCL (*CRX) 50 MG TABLET PO (21:11)
[2022-03-15 21:41] VITALS: BP 149/89; PULSE 60; RESP 16; TEMP 36.2; O2SAT 97
== END 2022-03-15 21:44 | disposition home or self-care (01) ==
PROVIDERS: Emergency Provider Internal Medicine Critical Care Medicine; PCP Family Medicine
DX: S93.602A Unspecified sprain of left foot, initial encounter (principal)
CPT/HCPCS: 73610; 73630; 90471; 90715; 99283; A9270

== ENCOUNTER 2022-07-12 08:59 | Outpatient (CLI) | payer OTHER, MEDICARE, SELFPAY ==
[2022-07-12 09:53] LABS: Basophils Absolute Auto 0.1 K/mm3 (0.0-0.1); Eosinophils Absolute Auto 0.3 K/mm3 (0-0.3); Eosinophils Percent Auto 4.2 % (0-4.4); Hematocrit 42.5 % (42.0-52.0); Hemoglobin 14.8 g/dL (14.0-18.0); Immature Granulocyte Absolute 0.01 K/mm3 (0.00-0.031); Immature Granulocyte Percent A 0.2 % (0-0.5); Lymphocytes Absolute Auto 2.43 K/mm3 (0.9-3.2); Lymphocytes Percent Auto 41.3 % (18.3-44.2); Mean Corpuscular HGB Conc 34.8 g/dl (32-36); Mean Corpuscular Hemoglobin 29.8 pg (26-34); Mean Corpuscular Volume 85.7 fl (80-100); Mean Platelet Volume 10.2 fl (7.4-10.4); Monocytes Absolute Auto 0.6 K/mm3 (0.1-0.6); Monocytes Percent Auto 10.2 % (2.6-8.5); Neutrophils Absolute Auto 2.5 K/mm3 (1.3-6.7); Neutrophils Percent Auto 43.1 % (45.5-73.1); Platelet Count Result 157 k/mm3 (150-375); Red Blood Count 4.96 M/mm3 (4.6-6.20); Red Cell Distribution Width 12.5 % (11.5-14.5); White Blood Count 5.9 K/mm3 (4.5-10.0)
[2022-07-12 10:22] LABS: Anion Gap 9 mmol/L (8-16); Blood Urea Nitrogen 19 mg/dL (9-20); Calcium 9.4 mg/dL (8.4-10.2); Carbon Dioxide 23 mmol/L (22-30); Chloride 108 mmol/L (98-107); Estimated Glomerular Filt Rate > 60; Glucose 137 mg/dL (65-110); Potassium 5.1 mmol/L (3.4-5.0); Sodium 140 mmol/L (137-145)
[2022-07-12 10:24] LABS: Cholesterol 215 mg/dL (0-200); HDL Direct 41 mg/dL; Triglycerides 200 mg/dL (<150)
[2022-07-12 10:34] LABS: LDL Cholesterol Direct 128 mg/dL
[2022-07-12 10:43] LABS: Prostate Specific Antigen 0.6 ng/mL (< OR = 4.0)
[2022-07-16 19:39] LABS: Testosterone Free 69.8 pg/mL (35.0-155.0); Testosterone Total 475 ng/dL (250-1100)
== END 2022-07-12 09:00 | disposition home or self-care (01) ==
PROVIDERS: PCP Family Medicine; Referring Provider Internal Medicine Cardiovascular Disease; Visit Provider Family Medicine
DX: Z12.5 Encounter for screening for malignant neoplasm of prostate (principal); E87.1 Hypo-osmolality and hyponatremia; D64.9 Anemia, unspecified; R79.89 Other specified abnormal findings of blood chemistry; I10 Essential (primary) hypertension; E78.5 Hyperlipidemia, unspecified
CPT/HCPCS: 36415; 80048; 80061; 84153; 84402; 84403; 84443; 85025; G0103

== ENCOUNTER 2023-05-26 15:37 | Outpatient (CLI) | payer OTHER, MEDICARE, SELFPAY ==
--- NOTE | ~2023-05-26 | XR_ITS ---
EXAM: XR wrist LT w scaphoid DATE: 05/26/2023 16:04 HISTORY: fell 2 wks ago c/o ulnar side Lt wrist . COMPARISON: None available. FINDINGS: Normal mineralization. Old scaphoid fracture/resection. No new acute fracture or dislocati on. No lytic or blastic lesion. Degenerative changes, moderate at the radial carpal joint and severe between the lunate and scaphoid and the articulation of both with the capitate. No erosion or periost eal change. Soft tissues within normal limits. IMPRESSION: No acute osseous finding in the left wrist. Old scaphoid fracture/resection. Severe degen erative changes in the carpal bones, described above. Reviewed, dictated and finalized at location K. IMPRESSION: No acute osseous finding in the left wrist. Old scaphoid fracture/r esection. Severe degenerative changes in the carpal bones, described above.
--- NOTE | ~2023-05-26 | XR_ITS ---
EXAM: XR knee RT min 4V DATE: 05/26/2023 16:03 HISTORY: fell 2 wks ago denies Rt knee pain . COMPARISON: None available. FINDINGS: Normal mineralization. No fracture or dislocation. No lytic or blastic lesion. Mild medial joint space narrowing. Mild tricompartmental osteophytosis. No erosion or periosteal change. Soft ti ssues within normal limits. IMPRESSION: No acute osseous finding in the right knee. Mild tricompartmental right knee osteoarthritis. Reviewed, dictated and finalized at location K.
== END 2023-05-26 15:38 | disposition home or self-care (01) ==
PROVIDERS: PCP Family Medicine; Visit Provider Nurse Practitioner Family
DX: M17.11 Unilateral primary osteoarthritis, right knee (principal); M19.032 Primary osteoarthritis, left wrist
CPT/HCPCS: 73110; 73564

== ENCOUNTER 2023-06-15 13:15 | Outpatient (CLI) | payer OTHER, MEDICARE, SELFPAY ==
--- NOTE | ~2023-06-15 | CT_ITS ---
EXAMINATION: CT wrist LT wo con DATE: 06/15/2023 13:39 INDICATION: Left wrist pain TECHNIQUE: High resolution computed tomography (CT) of the left wrist was performed without intraveno us contrast. Additional sagittal and coronal reconstructions were performed. Automated exposure contr ol and iterative reconstruction technique were employed. The dose-length product was 454.81 mGy-cm. 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 Th ere is a small residual bone fragment in the resection bed along the proximal margin of the trapezium . There is an additional chronic nonunited fracture fragment along the dorsal margin of the triquetru m. There are couple additional small corticated ossicles without evident donor site along the dorsal margin of the lunate and remaining proximal pole of the scaphoid which could represent either degener ative loose bodies or heterotopic ossicles related to prior soft tissue injury. There is dorsal rotat ion of the lunate and mild dorsal subluxation of the capitate with respect to the lunate. Likely seco ndary severe osteoarthritis at the midcarpal joint which is most prominent at the articulation of the remaining proximal pole of the scaphoid and the lunate. There are associated subarticular cystic sunshine nges most prominent at the proximal capitate. Additional moderate osteoarthritis at the wrist joint m ost prominent at the radioscaphoid articulation. Mild osteoarthritis at the distal radioulnar joint. Soft tissues are unremarkable. IMPRESSION: 1. 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 2. Chronic triquetrum fracture with small nonunited dorsal sided fragment. Reviewed, dictated and finalized at location A. IMPRESSION: 1. 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 2. Chronic triquetrum fracture with small nonunited dorsal sided fragment.
== END 2023-06-15 13:16 | disposition home or self-care (01) ==
PROVIDERS: PCP Family Medicine; Visit Provider Plastic Surgery
DX: S69.92XA Unspecified injury of left wrist, hand and finger(s), initial encounter (principal); X58.XXXA Exposure to other specified factors, initial encounter
CPT/HCPCS: 73200

== ENCOUNTER 2023-06-29 00:35 | Day surgery (SDC) | payer OTHER, MEDICARE, SELFPAY ==
[2023-06-21 12:33] VITALS: BMI 31.8
--- NOTE | 2023-06-21 12:39 | PC.NURSE ---
Addendum entered by Cristina Restrepo RN 06/21/23 12:50: PT INFORMED TO BE NPO FOR 8 HOURS PRIOR TO PROCEDURE. Original Note: Report to the Outpatient Waiting Room, entrance under the green pavilion located off [facility], at time 0600 on date 06/29/23. Planned Procedure Time: 0730. Time changes happen often and if your time is changed the preop area will call you the afternoon before. - You and your visitor will be asked to self-screen and do not enter if you have any COVID symptoms. - A mask is optional within the hospital at this time. Patients may have clear liquids (water, carbonated beverages, clear teas, apple juice) until 3 hours prior to surgery with a maximum of 20 ounces. - No food from midnight until time of surgery Take the following medications with a SIP of water the morning of surgery: AMLODIPINE, SOTALOL DO NOT STOP ANY OF YOUR OTHER PRESCRIPTION MEDICATIONS PRIOR TO SURGERY ?EXCEPT THE FOLLOWING Medications to discontinue per physician: ELIQUIS Date to take last dose: PER DR. DE LEÓN (PT TO CALL) Please no make-up, nail divehi, hairspray, perfume, deodorant, or body powder the day of surgery. No jewelry (including any body piercings) or valuables the day of surgery, leave them at home. Please take a shower or bath the night before, or the morning of, surgery with an antibacterial soap. Wear comfortable, loose fitting clothing. - Jewelry must be removed prior to entering the operating room. Rings and piercings that are not removed may be cut off. - The hospital will not accept responsibility for valuables. - Please leave all valuables, including medications, at home the day of surgery. If you are going home after surgery, a licensed emergency detail driver must drive you home. - NO public transportation without another adult if you receive anesthesia. - We recommend that an adult stay with you for 24 hours following discharge. - We also recommend that you do not drive, make important decision, drink alcoholic beverages, or take any drugs that were not prescribed by your health care provider for at least 24 hours after your discharge time. Follow any additional instructions given to you from your surgeon. If you or anyone in your household have experienced Covid symptoms in the past week, please notify your surgeon or the nurse liaison at the phone number below for possible testing. Telephone instructions given to MURRAY KILPATRICK and asked if any additional questions and then verbalized understanding. Patient advised to call surgeon office or pre surgery nurse liaison [phone] if any additional questions.
[2023-06-29 06:17] VITALS: BP 132/79; PULSE 62; RESP 16; TEMP 36.7; O2SAT 99
[2023-06-29] MEDS: LACTATED RINGERS 1,000 ML 30 ML IV CONT (06:46)
--- NOTE | 2023-06-29 06:49 | WPDHPUPDATE1 ---
History and Physical Update Update Date/Time: 06/29/23 06:49 History and Physical has been reviewed, including an updated exam of the patient. There are NO changes in the patient's condition. Patient seen and examined in pre-op area. COntinues to desire to proceed with left ectr poss open, left cubital tunnel release and left wrist partial denervation PIN neurectomy. Reviewed procedure, post-op expectations and risks including but not limited to bleeding, infection, injury to tendon/nerve/vessel, decreased hand function, stiffness, RSD, no change or worsening of symptoms. Patient stated understanding and signed consent form wishing to proceed.
--- NOTE | 2023-06-29 06:51 | WPDANESEPPF ---
Anes - Initial Pre Proc Eval Procedure: Operation Date: 06/29/23 07:30 Proposed Procedures p Left Endoscopic Carpal Tunnel Release, Possible Open, - Brinda Harrington MD s Left Cubital Tunnel Release, Left Wrist Denervation - Brinda Harrington MD Date/Time: 06/29/23 06:51 Surgeon: Brinda Harrington MD Pre Op Diagnosis: left carpal tunnel synd, ulnar neuropathy at elbow Patient Data Age: 48 Gender: M Height: 1.83 m Weight: 106.6 kg Allergies Allergy/AdvReac Type Severity Reaction Status Date / Time Sulfa (Sulfonamide AdvReac Severe Fever and Verified 06/21/23 12:32 Antibiotics) bicytopenia Home Medications Medication Instructions Recorded Confirmed Type omega-3 fatty acids 1,000 mg 1,000 mg PO DAILY 03/12/20 06/21/23 History capsule (Fish Oil Concentrate) tamsulosin 0.4 mg capsule (Flomax) 0.4 mg PO HS 01/15/21 06/21/23 History finasteride 5 mg tablet 5 mg PO .QD 07/12/22 06/21/23 History sotalol 80 mg tablet See Rx Instructions .Route 09/03/22 06/21/23 Rx .COMPLEX #180 tabs atorvastatin 20 mg tablet See Rx Instructions .Route 09/21/22 06/21/23 Rx .COMPLEX #90 tabs amlodipine 10 mg tablet 10 mg PO DAILY #90 tabs 10/15/22 06/21/23 Rx zolpidem 6.25 mg tablet,extended 6.25 mg PO .pm #30 tabs 01/17/23 06/21/23 Rx release,multiphase apixaban 5 mg tablet (Eliquis) See Rx Instructions .Route 03/04/23 06/21/23 Rx .COMPLEX #180 tabs Patient hx anesthesia problems: none Family hx anesthesia problems: none Results Review: All pre-operative results and documents have been reviewed as part of the pre-operative evaluation. [facility] Past Medical History Medical History BMI 28.0-28.9,adult BMI 29.0-29.9,adult BMI 30.0-30.9,adult BMI greater than 30 Chronic anticoagulation Fever of unknown origin (FUO) Headache, migraine Heart murmur HOCM (hypertrophic obstructive cardiomyopathy) s/p myomectomy Hyperlipidemia Hypertension ICD (implantable cardioverter-defibrillator) in place Spinback, implanted by Dr. Waldrop 2104 Generator change 2020 Insomnia DALIA (obstructive sleep apnea) Pacemaker complications Surgical History Surgical History Status post cardiac surgery HOCM s/p myomectomy Family History Family History Grandparent Family history of lung cancer Family history of coronary artery disease Hypertension Cerebrovascular accident Parkinson disease Father Acute myocardial infarction Hypertension Mother No problems noted. Sibling No problems noted. 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 Smoking packs per day: 1 Smoking cigarettes per day: 20.0 Years smoked: 10 Smoking pack-years: 10.00 Smoking status: Former smoker Tobacco type: cigarettes Second hand tobacco smoke exposure: Yes Smoking end date: 10/10/12 Alcohol intake: current Drinks per week: 1 Substance use: current Substance use type: marijuana Other substance usage details: medical marijuana Last use: 05/26/21; medical marijuana for neuropathy Lack of Transportation: No Lack of Food: Never True Current Housing: I Have Housing Concerned About Future Housing: No Difficulty Paying Gas/Electric Bills: No Difficulty Paying for Meds: No Currently Unemployed: No Education: Bachelor's Degree Difficulty w/ Childcare or Family Care: No Living arrangements: with family Occupation/Education: 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
--- NOTE | 2023-06-29 07:12 | P.OP_ITS ---
Procedure Note - Detailed Date of Procedure 06/29/23 Pre-op Diagnosis left carpal tunnel syndrome, ulnar neuropathy at elbow and left wrist pain Post-op Diagnosis Same Procedure Performed left ectr, left cubital tunnel release, and left pin neurectomy Surgeon Brinda Harrington MD Anesthesia MAC Description of Procedure Pt. seen and examined and marked in pre-op area.? consent signed Patient taken back to OR on stretcher in supine position. Time out performed with anesthesia, surgeon and staff agreeing on patient name site and surgery to be performed scds placed on LE and inflated tourniquet placed on right upper extremity and antibiotics given IV After anesthesia administered sedation I injected 15cc 1%lido with epi and 0.5% marcaine plain among the operative sites LUE prepped and draped in sterile fashion LUE exanguinated with Esmarch bandage and tourniquet inflated to 250mmHg I made a transverse incision in the left? volar distal wrist crease through skin and dermis with 15 blade scalpel.? Littler scissors spread down to antebrachial fascia. A small incision was made in antebrachial fascia allowing access to Carpal tunnel. I proceeded with sequential dilation staying in line with the ring finger and hugging the hook of the hamate.? I then used the synovial elevator to free any adhesions from the underside of the transverse carpal ligament. Next I was able to insert the Microaire endoscopic carpal tunnel device with direct visualization of the transverse fibers on the monitor and proceeded with complete segmental retrograde release of the ligament in its entirety.? I irrgated with normal saline and closed with 4-0 monocry for dermis and subcuticular closure. I next proceeded with making a longitudinal incision between two heads for flexor carpi ulnaris at end of right cubital tunnel with 15 blade scalpel.? Littler scissors used to spread down to FCU fascia.? Incision made in FCU fascia and ulnar nerve identified exiting cubital tunnel.? Proceeded with complete retrograde release of the cubital tunnel including 7cm proximal for intermuscular septum.? The nerve appeared somewhat atrophic though there were visible vaso nervorum.? There was no subluxation on full elbow range of motion. ? I irrigated with normal saline and closure with 4-0 monocryl for dermis and subcuticular. Next, I made a dorsal longitudinal incision over fourth extensor compartment of the left wrist through skin and dermis. spread through subq tissue and then incision in extensor retinaculum. I retracted tendons of fourth extensor compartment ulnarly and exposed floor of compartment and identified posterior interoseous nerve. I proceeded with neurectomy and cautery of 1cm of distal end of nerve. Irrigated with normal saline and closure with 4-0 monocryl for dermis and subcuticular. The incisions were covered with Dermabond then 4x4s, andressa, volar wrist splint and posterior elbow splint for patient safety, security and comfort and secured with navneet bandages after the tourniquet was let down noting the hand was warm and well perfused.? Patient awaken from anesthesia and transferred to recovery in stable condition complications - none EBL- 1cc Disposition - home in stable conditions Marilynn Miranda PA-C was essential for positioning, retraction, closure and dressing/splint application [facility] Billing Surgery - Charge Forward: Surgery Billing ([id number], [id number], [id number], and [id number])
[2023-06-29] MEDS: ceFAZolin 2 GM/D5W 50 ML 2 GM/50 ML BAG IVPB (07:27)
[2023-06-29] MEDS: LIDO 1%/EPINEPHRINE 1:100,000 20 ML VIAL INFILTRATE (07:47)
[2023-06-29 08:26] VITALS: BP 99/62; PULSE 62; RESP 20; O2SAT 93
[2023-06-29 08:55] VITALS: BP 111/69; PULSE 61; O2SAT 94
[2023-06-29 09:25] VITALS: BP 117/49; PULSE 60
--- NOTE | 2023-06-29 09:44 | SUR.PHASEII ---
RN called [employer] Rep at 09. Rep had to be called because RN tried to interrogate pacemaker x3 and there was no internet signal.
[2023-06-29 09:55] VITALS: BP 119/76; PULSE 60
--- NOTE | 2023-06-29 10:24 | SUR.PHASEII ---
RN is waiting on [employer] Rep to arrive to interrogate pacemaker. Patient's vitals are stable and he is unhooked from the monitors at this time.
== END 2023-06-29 10:43 | disposition home or self-care (01) ==
PROVIDERS: PCP Family Medicine; Visit Provider Plastic Surgery
PROC: 01N54ZZ Release Median Nerve, Percutaneous Endoscopic Approach (ICD-10-PCS; CPT 29848; principal; 2023-06-29 07:30)
PROC: (CPT 64718; 2023-06-29 07:30)
DX: G56.02 Carpal tunnel syndrome, left upper limb (principal); G56.22 Lesion of ulnar nerve, left upper limb; G62.9 Polyneuropathy, unspecified; I10 Essential (primary) hypertension; E78.5 Hyperlipidemia, unspecified; I42.1 Obstructive hypertrophic cardiomyopathy; Z95.810 Presence of automatic (implantable) cardiac defibrillator; G47.33 Obstructive sleep apnea (adult) (pediatric); Z79.01 Long term (current) use of anticoagulants; F12.90 Cannabis use, unspecified, uncomplicated; Z87.891 Personal history of nicotine dependence; E66.9 Obesity, unspecified; Z68.31 Body mass index [BMI] 31.0-31.9, adult
CPT/HCPCS: 29848; 64718; 64772; 88304; J0690; J2250; J2704; J3010; J7120

== ENCOUNTER 2023-09-21 00:46 | Day surgery (SDC) | payer OTHER, MEDICARE, SELFPAY ==
[2023-09-09 09:11] VITALS: BMI 31.8
--- NOTE | 2023-09-09 09:11 | PC.NURSE ---
Report to the Outpatient Waiting Room, entrance under the green pavilion located off [facility], at time 1000 on date 09/21/23. Planned Procedure Time: 1200. Time changes happen often and if your time is changed the preop area will call you the afternoon before. - You and your visitor will be asked to self-screen and do not enter if you have any COVID symptoms. - A mask is optional within the hospital at this time. Patients may have clear liquids (water, carbonated beverages, clear teas, apple juice) until 8 hours prior to surgery (0400) with a maximum of 20 ounces. - No food from midnight until time of surgery Take the following medications with a SIP of water the morning of surgery: AMLODIPINE DO NOT STOP ANY OF YOUR OTHER PRESCRIPTION MEDICATIONS PRIOR TO SURGERY ?EXCEPT THE FOLLOWING Medications to discontinue per physician: ELIQUIS, FISH OIL Date to take last dose: 09/17/23 (PER PT) Please no make-up, nail [place], hairspray, perfume, deodorant, or body powder the day of surgery. No jewelry (including any body piercings) or valuables the day of surgery, leave them at home. Please take a shower or bath the night before, or the morning of, surgery with an antibacterial soap. Wear comfortable, loose fitting clothing. - Jewelry must be removed prior to entering the operating room. Rings and piercings that are not removed may be cut off. - The hospital will not accept responsibility for valuables. - Please leave all valuables, including medications, at home the day of surgery. If you are going home after surgery, a licensed bull driver must drive you home. - NO public transportation without another adult if you receive anesthesia. - We recommend that an adult stay with you for 24 hours following discharge. - We also recommend that you do not drive, make important decision, drink alcoholic beverages, or take any drugs that were not prescribed by your health care provider for at least 24 hours after your discharge time. Follow any additional instructions given to you from your surgeon. If you or anyone in your household have experienced Covid symptoms in the past week, please notify your surgeon or the nurse liaison at the phone number below for possible testing. Telephone instructions given to PT - CAORLYN KILPATRICK and asked if any additional questions and then verbalized understanding. Patient advised to call surgeon office or pre surgery nurse liaison [phone] if any additional questions.
--- NOTE | 2023-09-21 07:53 | PM.HPGS ---
History of Present Illness History of Present Illness Chief complaint: right carpal and cubital tunnel syndrome Narrative: Patient seen and examined in pre-operative holding area. No interval change in medical history or symptoms. Patient recalls previous discussion of benefits and alternatives to procedure. Continues to desire to proceed with right ectr poss open and right cubital tunnel release. Reviewed procedure, post-op expectations and risks including but not limited to bleeding, infection, injury to tendon/nerve/vessel, decreased hand function, stiffness, RSD, no change or worsening of symptoms. I discussed the possible use of assistants and their participation in the case. Patient stated understanding and signed the consent form wishing to proceed. Review of Systems Review of Systems: All systems reviewed & are unremarkable except as noted in HPI and below PMFSH Past Medical History Medical History BMI 28.0-28.9,adult BMI 29.0-29.9,adult BMI 30.0-30.9,adult BMI greater than 30 Chronic anticoagulation Fever of unknown origin (FUO) Headache, migraine Heart murmur HOCM (hypertrophic obstructive cardiomyopathy) s/p myomectomy Hyperlipidemia Hypertension ICD (implantable cardioverter-defibrillator) in place [employer]helf [employer], implanted by Dr. Waldrop 2104 Generator change 2020 Insomnia DALIA (obstructive sleep apnea) Pacemaker complications Surgical History Surgical History Status post cardiac surgery HOCM s/p myomectomy Family History Family History Grandparent Family history of lung cancer Family history of coronary artery disease Hypertension Cerebrovascular accident Parkinson disease Father Acute myocardial infarction Hypertension Mother No problems noted. Sibling No problems noted. 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 Smoking cigarettes per day: 20.0 Years smoked: 10 Smoking pack-years: 10.00 Smoking status: Former smoker Tobacco type: cigarettes Second hand tobacco smoke exposure: Yes Smoking end date: 10/10/12 Alcohol intake: never Drinks per week: 1 Substance use: current Substance use type: marijuana Other substance usage details: medical marijuana Last use: 05/26/21; medical marijuana for neuropathy Lack of Transportation: No Lack of Food: Never True Current Housing: I Have Housing Concerned About Future Housing: No Difficulty Paying Gas/Electric Bills: No Difficulty Paying for Meds: No Currently Unemployed: No Education: Bachelor's Degree Difficulty w/ Childcare or Family Care: No Living arrangements: with family 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/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: 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 Spiritual care concerns: No Meds Home Medications and Allergies Home Medications Medication Instructions Recorded Confirmed Type omega-3 fatty acids 1,000 mg 1,000 mg PO DAILY 03/12/20 09/09/23 History capsule (Fish Oil Concentrate) tamsulosin 0.4 mg capsule (Flomax) 0.4 mg PO HS 01/15/21 09/09/23 History finasteride 5 mg tablet 5 mg PO .QD 07/12/22 09/09/23 History zolpidem 6.25 mg tablet,extended 6.25 mg PO .pm #30 tabs 01/17/23 09/09/23 Rx release,multiphase apixaban 5 mg tablet (Eliquis) See Rx Instructions .Route 03/04/23 09/09/23 Rx .COMPLEX #180 tabs amlodipine 10 mg tablet See Rx Instructions .Route 07/20/23 09/09/23 Rx .COMPLEX #90 tabs sotalol 80 mg tablet See Rx Inst
--- NOTE | 2023-09-21 07:54 | W.PM.PROC2 ---
Procedure Note - Detailed Date of Procedure 09/21/23 Pre-op Diagnosis right carpal and cubital tunnel syndrome Post-op Diagnosis Same Procedure Performed right ectr and CuTR Surgeon Brinda Harrington MD [employer] Agent fran jackson pa-c Anesthesia MAC Description of Procedure INFORMED CONSENT: The patient was seen and examined and marked in the pre-op area.? The patient signed the consent form. PROCEDURE IN DETAIL:The patient taken back to OR on the stretcher in supine position. Time out performed with anesthesia, surgeon and staff agreeing on patient's name site and surgery to be performed SCDs were placed on the lower extremities and inflated. A tourniquet was placed on {right} upper extremity and antibiotics given IV After anesthesia administered sedation I injected {10}cc 1%lido with epi and 0.5% marcaine plain at the operative site The?{right upper extremity}?was prepped and draped in sterile fashion the??{right upper extremity} was? exsanguinated with Esmarch bandage and tourniquet inflated to 250mmHg I made a transverse incision in the {right} volar distal wrist crease through skin and dermis with 15 blade scalpel.? Littler scissors spread down to antebrachial fascia. A small incision was made in antebrachial fascia allowing access to Carpal tunnel. I proceeded with sequential dilation staying in line with the ring finger and hugging the hook of the hamate.? I then used the synovial elevator to free any adhesions from the underside of the transverse carpal ligament. Next I was able to insert the Microaire endoscopic carpal tunnel device with direct visualization of the transverse fibers on the monitor and proceeded with complete segmental retrograde release of the ligament in its entirety.? I irrigated with normal saline and closed with 4-0 monocryl for dermis and subcuticular closure. I next proceeded with making a longitudinal incision between two heads for flexor carpi ulnaris at end of {right} cubital tunnel with 15 blade scalpel.? Littler scissors were used to spread down to FCU fascia.? An incision was made in FCU fascia and ulnar nerve identified exiting cubital tunnel.? I proceeded with complete retrograde release of the cubital tunnel including 7cm proximal for the intermuscular septum.? The nerve appeared healthy with visible vaso nervorum.? There was no subluxation on full elbow range of motion. ? I irrigated with normal saline and closure with 4-0 monocryl for dermis and subcuticular. A dressing of Dermabond, 4x4, andressa, and a volar wrisr and posterior elbow splint was applied for patient safety, security, and comfort and secured with an navneet bandage after the tourniquet was let down noting the hand was warm and well perfused. The patient was then awaken from anesthesia and transferred to the recovery room in stable condition.? Complications - none EBL- 0cc Disposition - home in stable conditions Fran Jackson PA-C was essential for positioining, retraction, closure and dressing placement [facility] Billing Surgery - Charge Forward: Surgery Billing ([id number] and [id number] same codes for fran but add modifier )
[2023-09-21 10:04] VITALS: BP 140/64; PULSE 65; RESP 14; TEMP 36.1; O2SAT 100
--- NOTE | 2023-09-21 11:43 | WPDANESEPPF ---
Anes - Initial Pre Proc Eval Procedure: Operation Date: 09/21/23 12:00 Proposed Procedures p Right Endoscopic Carpal Tunnel Release, Possible Open, Right Cubital Tunnel Release - Brinda Harrington MD Date/Time: 09/21/23 11:43 Surgeon: Brinda Harrington MD Pre Op Diagnosis: right carpal and cubital tunnel syndrome Patient Data Age: 48 Gender: M Height: 1.83 m Weight: 107.6 kg Last Vital Signs Temp 36.1 C L 09/21/23 10:04 Pulse 65 09/21/23 10:04 Resp 14 09/21/23 10:04 BP 140/64 09/21/23 10:04 Pulse Ox 100 09/21/23 10:04 O2 Del Method Room Air 09/21/23 10:04 Allergies Allergy/AdvReac Type Severity Reaction Status Date / Time Sulfa (Sulfonamide AdvReac Severe Fever and Verified 09/21/23 10:13 Antibiotics) bicytopenia Home Medications Medication Instructions Recorded Confirmed Type omega-3 fatty acids 1,000 mg 1,000 mg PO DAILY 03/12/20 09/09/23 History capsule (Fish Oil Concentrate) tamsulosin 0.4 mg capsule (Flomax) 0.4 mg PO HS 01/15/21 09/09/23 History finasteride 5 mg tablet 5 mg PO .QD 07/12/22 09/09/23 History zolpidem 6.25 mg tablet,extended 6.25 mg PO .pm #30 tabs 01/17/23 09/09/23 Rx release,multiphase apixaban 5 mg tablet (Eliquis) See Rx Instructions .Route 03/04/23 09/09/23 Rx .COMPLEX #180 tabs amlodipine 10 mg tablet See Rx Instructions .Route 07/20/23 09/09/23 Rx .COMPLEX #90 tabs sotalol 80 mg tablet See Rx Instructions .Route 08/05/23 09/09/23 Rx .COMPLEX #180 tabs atorvastatin 20 mg tablet See Rx Instructions .Route 08/19/23 09/09/23 Rx .COMPLEX #90 tabs Patient hx anesthesia problems: none Family hx anesthesia problems: none Results Review: All pre-operative results and documents have been reviewed as part of the pre-operative evaluation. COUNTS INCLUDE 234 BEDS AT THE [facility] Past Medical History Medical History BMI 28.0-28.9,adult BMI 29.0-29.9,adult BMI 30.0-30.9,adult BMI greater than 30 Chronic anticoagulation Fever of unknown origin (FUO) Headache, migraine Heart murmur HOCM (hypertrophic obstructive cardiomyopathy) s/p myomectomy Hyperlipidemia Hypertension ICD (implantable cardioverter-defibrillator) in place [place], implanted by Dr. Waldrop 2104 Generator change 2020 Insomnia DALIA (obstructive sleep apnea) Pacemaker complications Surgical History Surgical History Status post cardiac surgery HOCM s/p myomectomy Family History Family History Grandparent Family history of lung cancer Family history of coronary artery disease Hypertension Cerebrovascular accident Parkinson disease Father Acute myocardial infarction Hypertension Mother No problems noted. Sibling No problems noted. 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 Smoking packs per day: 1 Smoking cigarettes per day: 20.0 Years smoked: 10 Smoking pack-years: 10.00 Smoking status: Former smoker Tobacco type: cigarettes Second hand tobacco smoke exposure: Yes Smoking end date: 10/10/12 Alcohol intake: never Drinks per week: 1 Substance use: current Substance use type: marijuana Other substance usage details: medical marijuana Last use: 05/26/21; medical marijuana for neuropathy Lack of Transportation: No Lack of Food: Never True Current Housing: I Have Housing Concerned About Future Housing: No Difficulty Paying Gas/Electric Bills: No Difficulty Paying for Meds: No Currently Unemployed: No Education: Bachelor's Degree Difficulty w/ Childcare or Family Care: No Living arrangements: with family Occupation/Education: retired Additional occupat
[2023-09-21] MEDS: ceFAZolin 2 GM/D5W 50 ML 2 GM/50 ML BAG IVPB (11:57)
[2023-09-21] MEDS: LIDO 1%/EPINEPHRINE 1:100,000 20 ML VIAL 10 ML INFILTRATE (12:18)
[2023-09-21] MEDS: BUPivacaine HCL 0.5% PF 30 ML VIAL 5 ML INFILTRATE (12:19)
[2023-09-21 12:41] VITALS: BP 125/71; PULSE 60; RESP 16; O2SAT 97
[2023-09-21] MEDS: LACTATED RINGERS 1,000 ML 30 ML IV CONT (12:41)
[2023-09-21 13:10] VITALS: BP 139/85; PULSE 60; RESP 16
[2023-09-21 13:35] VITALS: BP 134/88; PULSE 60; RESP 16
== END 2023-09-21 13:44 | disposition home or self-care (01) ==
PROVIDERS: PCP Family Medicine; Visit Provider Plastic Surgery
PROC: 01N54ZZ Release Median Nerve, Percutaneous Endoscopic Approach (ICD-10-PCS; CPT 29848; principal; 2023-09-21 12:00)
DX: G56.01 Carpal tunnel syndrome, right upper limb (principal); G56.21 Lesion of ulnar nerve, right upper limb; I10 Essential (primary) hypertension; E78.5 Hyperlipidemia, unspecified; G47.33 Obstructive sleep apnea (adult) (pediatric); I42.1 Obstructive hypertrophic cardiomyopathy; Z95.810 Presence of automatic (implantable) cardiac defibrillator; Z87.891 Personal history of nicotine dependence; F12.90 Cannabis use, unspecified, uncomplicated; Z79.01 Long term (current) use of anticoagulants
CPT/HCPCS: 29848; 64718; J0690; J2250; J2704; J3010; J7120

== ENCOUNTER 2023-11-11 08:09 | Outpatient (CLI) | payer OTHER, MEDICARE, SELFPAY ==
[2023-11-11 08:53] LABS: Hemoglobin A1C 7.6 % (<5.7)
[2023-11-11 09:04] LABS: Alanine Aminotransferase 27 U/L (16-63); Albumin Level 3.7 g/dL (3.4-5.0); Alkaline Phosphatase 63 U/L (46-116); Anion Gap 10 mmol/L (8-16); Aspartate Amino Transferase 18 U/L (15-37); Bilirubin,Total 0.5 mg/dL (0.00-1.00); Blood Urea Nitrogen 14 mg/dL (7-18); Calcium 8.8 mg/dL (8.5-10.1); Carbon Dioxide 22 mmol/L (21-32); Chloride 104 mmol/L (98-108); Cholesterol 188 mg/dL (0-200); Estimated Glomerular Filt Rate > 60; Glucose 150 mg/dL (70-99); HDL Direct 44 mg/dL (40-60); LDL Cholesterol Calculated 99 mg/dL (<130); Magnesium 1.8 mg/dL (1.8-2.4); Osmolality Calculated 285 mOsm/kg (285-295); Potassium 4.2 mmol/L (3.5-5.1); Sodium 136 mmol/L (136-145); Total Protein 7.1 g/dL (6.4-8.2); Triglycerides 223 mg/dL (0-150)
== END 2023-11-11 08:10 | disposition home or self-care (01) ==
LOC: CHSLAB 08:10
PROVIDERS: PCP Family Medicine; Visit Provider Internal Medicine Cardiovascular Disease
DX: E78.5 Hyperlipidemia, unspecified (principal); R73.03 Prediabetes
CPT/HCPCS: 36415; 80053; 80061; 83036; 83735

== ENCOUNTER 2024-02-27 15:50 | Outpatient (CLI) | payer OTHER, MEDICARE, SELFPAY ==
--- NOTE | 2024-02-27 16:00 | ECG_ITS ---
SEE SCANNED COPY FOR CONFIRMED REPORT MTDD
== END 2024-02-27 15:51 | disposition home or self-care (01) ==
LOC: CHSCARD 15:54
PROVIDERS: PCP Family Medicine; Visit Provider Internal Medicine Cardiovascular Disease
DX: I48.0 Paroxysmal atrial fibrillation (principal); R94.31 Abnormal electrocardiogram [ECG] [EKG]; Z95.0 Presence of cardiac pacemaker
CPT/HCPCS: 93005

== ENCOUNTER 2024-07-10 07:38 | Outpatient (CLI) | payer OTHER, MEDICARE, SELFPAY ==
[2024-07-10 07:52] LABS: Basophils Absolute Auto 0.06 K/mm3 (0.00-0.10); Basophils Percent Auto 0.9 % (0.0-1.0); Eosinophils Absolute Auto 0.22 K/mm3 (0.02-0.50); Eosinophils Percent Auto 3.4 % (1.0-6.0); Hematocrit 44.9 % (40.0-54.0); Hemoglobin 15.9 g/dL (14.0-18.0); Immature Granulocyte Absolute 0.02 K/mm3 (0.00-0.00); Immature Granulocyte Percent A 0.3 % (0.0-0.0); Lymphocytes Absolute Auto 2.24 K/mm3 (1.10-4.50); Mean Corpuscular HGB Conc 35.4 g/dL (32-36); Mean Corpuscular Hemoglobin 29.8 pg (27.0-31.0); Mean Corpuscular Volume 84.2 fL (78.0-102.0); Mean Platelet Volume 9.8 fl (8.7-11.0); Monocytes Absolute Auto 0.51 K/mm3 (0.10-0.90); Neutrophils Absolute Auto 3.35 K/mm3 (1.70-7.20); Neutrophils Percent Auto 52.4 % (50.0-70.0); Platelet Count Result 172 K/mm3 (150-420); Red Blood Count 5.33 M/mm3 (4.70-6.10); Red Cell Distribution Width 12.1 % (11.6-14.4); White Blood Count 6.4 K/mm3 (4.8-10.8)
[2024-07-10 08:58] LABS: Alanine Aminotransferase 22 U/L (16-63); Alkaline Phosphatase 63 U/L (46-116); Anion Gap 8 mmol/L (4-12); Aspartate Amino Transferase 20 U/L (15-37); Bilirubin,Total 0.9 mg/dL (0.00-1.00); Blood Urea Nitrogen 16 mg/dL (7-18); Calcium 9.5 mg/dL (8.5-10.1); Carbon Dioxide 28 mmol/L (21-32); Chloride 103 mmol/L (98-108); Cholesterol 214 mg/dL (0-200); Estimated Glomerular Filt Rate > 60; Folic Acid 17.1 ng/mL (8.6->20); Glucose 156 mg/dL (70-99); HDL Direct 42 mg/dL (40-60); Iron 128 ug/dL (65-175); LDL Cholesterol Calculated 116 mg/dL (<130); Osmolality Calculated 292 mOsm/kg (285-295); Percent Iron Saturation 41 % (12-57); Potassium 4.1 mmol/L (3.5-5.1); Prostate Specific Antigen 0.5 ng/mL (< OR = 4.0); Sodium 139 mmol/L (136-145); Thyroid Stimulating Hormone 1.06 uIU/mL (0.36-3.74); Total Protein 7.3 g/dL (6.4-8.2); Triglycerides 278 mg/dL (0-150); Vitamin B12 445 pg/mL (193-986)
[2024-07-12 07:35] LABS: Vitamin D 25 Hydroxy 37 ng/mL (30-100)
== END 2024-07-10 07:39 | disposition home or self-care (01) ==
PROVIDERS: PCP Family Medicine; Visit Provider Nurse Practitioner Adult Health
DX: E11.9 Type 2 diabetes mellitus without complications (principal); E78.5 Hyperlipidemia, unspecified; I10 Essential (primary) hypertension; Z12.5 Encounter for screening for malignant neoplasm of prostate; G62.9 Polyneuropathy, unspecified; D64.9 Anemia, unspecified; Z68.30 Body mass index [BMI] 30.0-30.9, adult; Z79.899 Other long term (current) drug therapy
CPT/HCPCS: 36415; 80053; 80061; 82306; 82607; 82746; 83540; 83550; 84153; 84443; 85025; G0103

== ENCOUNTER 2024-09-12 14:30 | Outpatient (RCR) | payer OTHER, MEDICARE, SELFPAY | END 2024-10-16 12:18 | disposition home or self-care (01) | LOC: ANHDMC 14:30 | PROVIDERS: PCP Family Medicine; Visit Provider Nurse Practitioner Adult Health | DX: E11.9 Type 2 diabetes mellitus without complications (principal); Z71.89 Other specified counseling | CPT/HCPCS: G0108; G0109 ==

== ENCOUNTER 2024-11-03 16:23 | Emergency (ER) | payer OTHER, MEDICARE, SELFPAY ==
--- NOTE | ~2024-11-03 | XR_ITS ---
HISTORY: Fall, pain in base of 1st metacarpal radiates into Rt. wrist COMPARISON: None TECHNIQUE: 3 views of the right wrist were performed. FINDINGS: No acute fracture is identified. The carpal arcs are intact. Bone mineralization is unremarkable. No significant soft tissue swelling is noted. No radiopaque foreign body is identified. IMPRESSION: No acute fracture or dislocation. Reviewed, dictated and finalized at location A. ON FANCIER
--- NOTE | ~2024-11-03 | XR_ITS ---
HISTORY: Fall, pain in base of 1st metacarpal radiates into Rt. wrist COMPARISON: None TECHNIQUE: 3 views of the right hand were performed. FINDINGS: No acute fracture is identified. The joint spaces are preserved. The carpal arcs are intact. Bone mineralization is unremarkable. No significant soft tissue swelling. No radiopaque foreign body is identified. IMPRESSION: No acute fracture or dislocation within the right hand, as detailed above. Reviewed, dictated and finalized at location A. UTING MACHINE OPERATOR
--- NOTE | ~2024-11-03 | XR_ITS ---
HISTORY: Fall, Rt. hip pain COMPARISON: None TECHNIQUE: 2 views of the right hip along with an AP view of the pelvis FINDINGS: No acute fracture or dislocation is identified. Superior lateral sclerosis of the bilateral femoral acetabular joint spaces are present consistent wi th osteoarthritis. Normal mineralization. IMPRESSION: Degenerative disease without acute fracture or dislocation Reviewed, dictated and finalized at location A. ILL HAND
--- OUTSIDE RECORDS SUMMARY | 2024-11-03 16:26 | XMS_ITS | Encounter Summary ---
Author Organization [facility] Address [address] [place] [address] Phone Care Team Providers Care Middle [employer] English Teacher Name Role Phone Christiano Sandhu MD Primary Care Provider [phone] Encounter Details Date Type Department Care Team (Late st Contact Info) Description 06/17/2015 Orders Only [facility] ProviderKaylee MD [address] [place] [address] Social History Tobacco Use Types Packs/Day Years Used Date Smoking Tobacco: Never Assessed Sex and Gender Information Value Date Recorded Sex Assigned at Not on file 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 Historical Provider [facility] Final Result documented in this encounter Visit Diagnoses Not on filedocumented in this encounter Care Teams Middle [employer] English Teacher Relationship Specialty Start Date End Date Christiano Sandhu MD PCP - General 05/06/10 documented as of this encounter
--- OUTSIDE RECORDS SUMMARY | 2024-11-03 16:26 | XMS_ITS | Encounter Summary ---
Author Organization [facility] Address [address] [place] [address] Phone Care Team Providers Care Certification Technician Name Role Phone Christiano Sandhu MD Primary Care Provider [phone] Encounter Details Date Type Department Care Team (Late st Contact Info) Description 11/05/2014 Orders Only [facility] ProviderKaylee MD [address] [place] [address] Social History Tobacco Use Types Packs/Day Years Used Date Smoking Tobacco: Never Assessed Sex and Gender Information Value Date Recorded Sex Assigned at Not on file 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 Historical Provider [facility] Final Result documented in this encounter Visit Diagnoses Not on filedocumented in this encounter Care Teams Certification Technician Relationship Specialty Start Date End Date Christiano Sandhu MD PCP - General 05/06/10 documented as of this encounter
--- OUTSIDE RECORDS SUMMARY | 2024-11-03 16:26 | XMS_ITS | Data Portability ---
Author Organization 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 He is under [facility] of [facility] has a pacemaker and a defibrillator. I will get his records from his previous doctor to review and check on laboratory testing. He is current with his colonoscopy. He has type 2 diabetes.. He is going to check his blood sugars in the next few days and then I am going to call him to get those readings. I would recommend switching him from immediate release metformin to extended release to see if that would help with diarrhea. We may want to switch him off of the farxiga because of the side effect that he had with a skin infection. Due to his anoxic brain injury and cognitive changes he has trouble focusing. I wonder if a brain stimulant such as Ritalin would be helpful to him. I want to do a little more research and then I will make that recommendation to him. He indicates his understanding and agrees with this plan. Amount of time 45 minutes [email or web address] Not available 10/31/2024 22:07:40 Plan of Treatment Reminders Order Date Submit Date Provider Last Modified By Organization Details Last Modified Time Details Appointments None record ed. Lab None record ed. Referral None record ed. Procedures None record ed. Surgeries None record ed. Imaging None record ed. Medication Orders None record ed. Patient TargetsNo targets recorded. Patient InstructionsNo instructions recorded. Reason for Referral None Reported. Problems Name Problem SNOMED Code Status Onset Date Resolution Date Notes Provider Name and Address Organization Details Recorded Time Chronic diastolic heart failure 710714143 Active 2024 Ellen Underwood MD [address] [place] [address], [phone] , [facility] 21:45:33 Hypertrophic obstructive cardiomyopath y 80549085 Active 2024 Ellen Underwood MD [address] [place] [address], [address] , [facility] 5 21:45:42 Type 2 diabetes mellitus 96512898 Active 2024 Ellen Underwood MD [address] [place] [address], [address] , [facility] 21:46:07 Joint pain 07178240 Active 2024 Ellen Underwood MD [address] [place] [address], [address] , [facility] 21:46:29 Erectile dysfunction 987337570 Active 2024 Ellen Underwood MD [address] [place] [address], [address] , [facility] 21:46:54 Diabetic peripheral neuropathy 021453284 Active 2024 Ellen Underwood MD [address] [place] [address], [address] , [facility] 21:47:04 Reactive depression (situational) 54521155 Active 2024 Ellen Underwood MD [address] [place] [address], [address] , [facility] 21:47:20 Primary insomnia 9982039 Active 2024 Ellen Underwood MD [address] [facility] [place], [address] , [facility] 5 21:47:34 Obstructive sleep apnea syndrome 28961356 Active 2024 Ellen Underwood MD [address] [facility] [place], [address] , [facility] 5 21:47:41 Pyrexia of unknown origin 1015173 Active 2024 Ellen Underwood MD [address] [facility] [place], [address] , [facility] 5 21:48:06 Paroxysmal atrial fibrillation 962125783 Active 2024 Ellen Underwood MD [address] [facility] [place], [address] , [facility] 5 21:48:47 Long-term current use of anticoagulant 598761868 Active 2024 Ellen Underwood MD [address] [facility] [place], [address] , [facility] 5 21:48:54 Essential hypertension 01729512 Active 2024 Ellen Underwood MD [address] [facility] [place], [address] , [facility] 5 21:50:50 Mixed hyperlipidemi a 447489115 Active 2024 Ellen Underwood MD [address] [facility] [place], [address] , [facility] 5 21:51:01 Anoxic encephalopath y 442244905 Active 2024 Ellen Underwood MD [address] [facility] [place], [address] , [facility] 5 22:03:39 Problem Notes None recorded. Procedures Surgical History Date Name Laterality Status Provider Name and Address Organization Details Recorded Time 023 decompression of median nerve completed Ellen Underwood MD [address] [place] [address], [phone], [facility] 10/31/2024 21:52:40 022 colonoscopy completed Ellen Underwood MD [address] [place] [address], [address], [facility] 10/31/2024 21:54:30 015 open myomectomy completed Ellen Underwood MD [address] [place] [address], [address], [facility] 10/31/2024 21:52:16 decompression of ulnar nerve at elbow completed Ellen Underwood MD [address] [place] [address], [address], [facility] 10/31/2024 21:52:49 procedure on wrist completed Lorelei Underwood MD [address] [place] [address], [address], [facility] 10/31/2024 21:53:06 implantation of cardiac resynchronization defibrillator system completed Ellen Underwood MD [address] [place] [address], [address], [facility] 10/31/2024 21:53:18 Imaging Results None recorded. Procedure Notes None recorded. Medical Equipment None Reported. Allergies Allergen ID Allergen Name Allergen Category Reaction Reaction Severity Criticality Documentation Date Start Date Code Code System Note Provider Name and Address Organization Details Recorded Time [id number] Substance with sulfonami de structure and antibacte rial mechanism of action (substanc e) medicatio n anaphylax is severe high 10/31/2024 94169 8003 SNOMED Not Available Not Available Not Available Medications Name Sig Start Date Stop Date Status Note LastModified by Organization Details LastModified Time atorvastati n 10 mg tablet Take 1 tablet every day by oral route at bedtime. active Not Available Not Available No t Available sotalol 80 mg tablet Take 1 tablet twice a day by oral route. active Not Available Not Available No t Available Accu-Chek Softclix Lancets USE TO CHECK BLOOD SUGAR TWICE DAILY active Not Available Not Available No t Available ciprofloxac in 500 mg tablet TAKE 1 TABLET BY MOUTH EVERY 12 HOURS 10/31 completed Not Available Not Available Not Available tamsulosin 0.4 mg capsule TAKE 1 CAPSULE BY MOUTH AT BEDTIME active Not Available Not Available No t Available amlodipine 10 mg tablet TAKE 1 TABLET BY MOUTH DAILY active Not Available Not Available No t Available metformin 1,000 mg tablet TAKE 1 TABLET BY MOUTH TWICE DAILY active Not Available Not Available No t Available finasteride 5 mg tablet Take 1 tablet every day by oral route. active Not Available Not Available No t Available Eliquis 5 mg tablet Take 1 tablet twice a day by oral route. active Not Available Not Available No t Available Farxiga 10 mg tablet TAKE 1 TABLET BY MOUTH DAILY active Not Available Not Available No t Available Farxiga 5 mg tablet TAKE 1 TABLET BY MOUTH DAILY 10/31 completed Not Available Not Available Not Available Fish Oil 1,000 mg (120 mg-180 mg) capsule Take 1 capsule every day by oral route. active Not Available Not Available No t Available Accu-Chek Guide test strips USE TO CHECK BLOOD SUGAR TWICE DAILY active Not Available Not Available No t Available Accu-Chek Guide Glucose Meter USE TO CHECK BLOOD SUGAR DIRECTED active Not Available Not Available No t Available Vitals Date Recorded Body height Provider Name an d Address Organization Details Last Updated DateTime 10/31/2024 180.34 cm Sarah Whalen [facility] 10/31/2024 17:23:12 Date Recorded Body mass index (BMI) Body weight Provider Name and Address Organization Details Last Updated DateTime 10/31/2024 31.2 kg/m2 268094.69 g [facility] 10/31/2024 17:23:37 Date Recorded Body temperature Provider Name a nd Address Organization Details Last Updated DateTime 10/31/2024 97.1 [degF] Sarah Whalen [facility] 10/31/2024 17:23:41 Date Recorded Heart rate Provider Name an d Address Organization Details Last Updated DateTime 10/31/2024 64 /min Sarah Whalen [facility] 10/31/2024 17:23:58 Date Recorded Oxygen saturation Oxygen saturation in Arterial blood by Pulse oximetry Provider Name and Address Organization Details Last Updated DateTime 10/31/2024 95 % 95 % Sarah Whalen [facility] 10/31/2024 17:24:00 Date Recorded Systolic blood pressure Diastolic blood pressure Provider Name and Address Organization Details Last Updated DateTime 10/31/2024 146 mm[Hg] 82 mm[Hg] Sarah Whalen [facility] 10/31/2024 17:25:05 Social History Question Answer Notes LastModified by Organizat ion Details LastModified Time Tobacco Smoking Status Former Smoker Sarah Whalen [facility] 10/31/2024 17:27:32 How Many Packs Per Day (PPD)? 1ppd Information not available 10/31/2024 How Long Have You Smoked? 15yr Information not available 10/31/2024 When Did You Quit Smoking? 2010 Information not available 10/31/2024 Sex: Unknown Functional Status None recorded. Mental Status None recorded. Family History Relationship Description Onset Age of this Age Resolved Age Notes LastModified by Organization Details LastModified Time Paternal Uncle Hypertrophic obstructive cardiomyopat hy [email or web address] Not available 2024 21:49:34 Paternal Uncle Malignant tumor of lung [email or web address] Not available 2024 21:49:53 Paternal Aunt Malignant tumor of lung [email or web address] Not available 2024 21:49:53 Paternal Grandmother Type 2 diabetes mellitus [email or web address] Not available 2024 21:50:09 Father Cerebrovascu lar accident [email or web address] Not available 21:50:21 Father Hypertensive disorder [email or web address] Not available 2024 21:50:30 Medical History No medical history recorded. Immunizations Vaccine Type Date Status Note Provider Nam e and Address Organization Details Recorded Time COVID-19, mRNA, LNP-S, PF, 100 mcg/0.5mL dose or 50 mcg/0.25mL dose 02/07/2021 completed Sarah greene, [facility] 10/31/2024 17:25:10 COVID-19, mRNA, LNP-S, PF, 100 mcg/0.5mL dose or 50 mcg/0.25mL dose 03/07/2021 completed Sarah greene, [facility] 10/31/2024 17:25:10 Tdap 03/15/2022 completed Sarah greene, [facility] 10/31/2024 17:25:10 Past Encounters Encounter ID Performer Location Encounter Start Date Encounter Closed Date Diagnosis/Indication Diagnosis SNOMED-CT Code Diagnosis ICD10 Code Diagnosis Note [id number] Ellen Underwood MD [facility] ([place]) [address] [place] [address] 10/31/2024 16:40:59 11/01/2024 10:00:56 Diabetic peripheral neuropathy 776022791 E11.42 Essential hypertension 71814414 I10 Hypertroph ic obstructive cardiomyopathy 57769739 I42.1 Reactive d epression (situational) 76637454 F32.9 Type 2 ruben betes mellitus 53178801 E11.8 Anoxic encephalopathy 38 9718152 G93.1 Health Concerns Section Related Observation LastModified by Organization Detai ls LastModified Time None Recorded Concern Status LastModified by Organization Details LastModified Time None Recorded Advance Directives Directive None Recorded Payers Encounter Date Sequence Insurance Name Policy Number Policy Rudd Covered Member ID Rudd Member ID Guarantor Name 10/31/2024 1 [facility] [id number] Porfirio Charlene [id number] Porfirio Chang Notes Date Note Type Note Provider Name and Address Organization Details Recorded Time 10/31/2024 text/html Porfirio is a 49-year-old gentleman new to my practice and here to establish care. He has a complicated medical history. In February 2015 he had a witnessed cardiac event. Investigations revealed that he has hypertrophic cardiomyopathy. He will underwent a septal myomectomy in February 2015 and has a pacemaker defibrillator present. His last battery change was 2 years ago. During this event he suffered anoxic brain injury. 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 He had been working at [employer]. He believes that his paternal uncle and a cousin may have also had this heart condition. His children were checked and they do not have any problem. He has type 2 diabetes. He says it went undiagnosed for some time as have peripheral neuropathy related to this. He just recently started some farxiga. He did develop perirectal abscess while on this medicine and wonders if it was related to the medication itself. He is also on metformin. He has had some diarrhea but he thinks it is starting to improve. He does not always check his blood sugars at home. His most recent blood sugar was 180 and his hemoglobin A1c was 7.1. He recently got a new [facility]. [facility] Hobbs is from [place] and sees Porfirio at [facility] decreased his pacemaker rate to 60 and change his medicine. He has been feeling much open. He is on disability due to the anoxic brain injury he suffered. He admits to situational anxiety and depression. He enjoys hunting fishing and cooking. He is not able to do as much as he used to. He says that he was extremely successful when he was younger. 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 He left the job that he had until he was disabled at 2015. He finds that he can But not follow verbal instructions on how to get someplace. He paid any bills late but he has taken bills to the wrong bank to pay. He is . He has 2 children. His son just got out of the and his daughter is completing nurse armature coil winder's school and will be working in [employer] in the near future. His works as a recovery room nurse. Ellen Underwood MD [facility] [facility], [place], [address], [facility] 10/31/2024 22:08:05
--- OUTSIDE RECORDS SUMMARY | 2024-11-03 16:26 | XMS_ITS | Encounter Summary ---
Author Organization [facility] Address [address] [place] [address] Phone Care Team Providers Care Title Specialist Name Role Phone Christiano Sandhu MD Primary Care Provider [phone] Encounter Details Date Type Department Care Team (Late st Contact Info) Description 06/18/2016 Orders Only [facility] Provider, MD Kaylee [address] [place] [address] Social History Tobacco Use Types Packs/Day Years Used Date Smoking Tobacco: Never Assessed Sex and Gender Information Value Date Recorded Sex Assigned at Not on file 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 Historical Provider [facility] Final Result documented in this encounter Visit Diagnoses Not on filedocumented in this encounter Care Teams Title Specialist Relationship Specialty Start Date End Date Christiano Sandhu MD PCP - General 05/06/10 documented as of this encounter
--- OUTSIDE RECORDS SUMMARY | 2024-11-03 16:26 | XMS_ITS | Encounter Summary ---
Author Organization [facility] Address [address] [place] [address] Care Team Providers Care Kindergarten Teacher Assistant Name Role Phone Christiano Sandhu MD Primary Care Provider [phone] Encounter Details Date Type Department Care Team (Late st Contact Info) Description 06/02/2021 Lab Requisition [facility] Care Pathology Lab [address] [place] [address] Miguel A Carmichael MD [address] [place] [address] Illness, unspecified Social History Tobacco Use Types Packs/Day Years Used Date Smoking Tobacco: Never Assessed Sex and Gender Information Value Date Recorded Sex Assigned at Not on file Gender Identity Not on file Sexual Orientation Not on file documented as of this encounter Plan of Treatment Not on file documented as of this encounter Procedures Procedure Name Priority Date/Time Associated Diagnosis Comments BONE MARROW BIOPSY (STL) Routine 05/29/2021 10:14 AM CDT Illness, unspecified documented in this encounter Results * BONE MARROW BIOPSY (STL) (05/29/2021 10:14 AM CDT) Case Report Bone Marrow Patholog y Report ?Case: [id number] ? Authorizing Provider: ??Miguel A Carmichael MD ?Collected: ? 05/29/2021 10:14 AM ? Ordering Location: ? [facility] ? Received: ?06/02/2021 07:53 AM ? Pathologist: ? Laurel Cooper MD ? Specimens: ?? A) - Bone Marrow Clot ? B) - Bone Marrow Core ? 06/03/2021 10:46 AM [facility] Final Diagnosis Bone marrow, aspirate, clot section, and core biopsy: - Hypercellular marrow with maturing trilineage hematopoiesis and megakaryocytic hyperplasia. - No evidence of lymphoma or high-grade myeloid neoplasm. - See description. 06/03/2021 10:46 AM [facility] Comment Due to the hemodilution of the aspirate smear, immunohistochemistry was performed on the core biopsy: CD3, CD20, CD34, and CD138 show normal numbers of T-lymphocytes, B-lymphocytes, blasts, and plasma cells, respectively. In situ hybridization for kappa and lambda mRNA shows no clear clonality in plasma cells (K:L=1). Overall morphologic and immunophenotypic findings are not diagnostic for a hematolymphoid malignancy. 06/03/2021 10:46 AM [facility] Peripheral Smear Description Not received. 06/03/2021 10:46 AM [facility] Bone Marrow Aspirate Differential count (200 cells): not performed due to hemodilution. Specimen quality: hemodilute. Spicules: none. Predominantly peripheral blood elements. Storage iron (by special stain): not evaluable due to lack of spicules. Sideroblastic iron (by special stain): no erythroid precursors seen to assess. 06/03/2021 10:46 AM [facility] Bone Marrow Core Biopsy and Clot Section Description Specimen quality: adequate with 1.5 cm of evaluable marrow. Cellularity: 60-70 % Trilineage Hematopoiesis: present. Myeloid to Erythroid ratio: normal. Myeloid maturation and localization: normal. Erythroid maturation and localization: normal. Megakaryocyte number: increased. Megakaryocyte distribution: small, loose clusters. Lymphoid aggregates: absent. Bone trabeculae: normal. Blood vessels: normal. Plasma cells: normal. Clot section marrow particles: few. Clot section morphology: similar to core biopsy. 06/03/2021 10:46 AM [facility] Flow Cytometry Summary [id number]: No aberrancies. 06/03/2021 10:46 AM [facility] Clinical History Infection. Rule out hematolymphoid neoplasm. 06/03/2021 10:46 AM [facility] Materials Received Received are 18 slide(s) and 4 blocks (A1, A2, A3, B1)labeled [id number] along with a copy of the outside pathology report. [place] [address]. All original materials are returned to the referring institution, along with a copy of our final report. 06/03/2021 10:46 AM [facility] Disclaimer The performance characteristics of all immunohistochemical and indirect immunofluorescence stains (if any) cited in this report were determined by the Histopathology Laboratory of [facility]. Some of these tests were developed by our own laboratory and have not been cleared or approved by the US Food and Drug Administration. The FDA does not require this test to go through premarket FDA review. These tests are used for clinical purposes. They should not be regarded as investigational or for research. This laboratory is certified under the Clinical Laboratory Improvement Amendments (CLIA) as qualified to perform high complexity clinical laboratory testing. This case has been personally reviewed and interpreted by the attending (teaching) pathologist. 06/03/2021 10:46 AM CDT [facility] Embedded Images 06/03/2021 10:46 AM CDT [facility] Pathology/Cytology BONE MARROW SPECIMEN / Unknown 05/29/2021 10:14 AM CDT 06/02/2021 7:53 AM CDT Miscellaneous samples (specimen) BONE MARROW SPECIMEN / Unknown 05/29/2021 10:14 AM CDT 06/02/2021 7:53 AM CDT Miguel A Carmichael MD LAB - PATHOLOGY/CYTO LOGY ORDERABLES [facility] [address] [phone] documented in this encounter Visit Diagnoses Diagnosis Illness, unspecified documented in this encounter Care Teams Kindergarten Teacher Assistant Relationship Specialty Start Date End Date Christiano Sandhu MD [address] [place] [address] PCP - General 05/29/21 documented as of this encounter
--- OUTSIDE RECORDS SUMMARY | 2024-11-03 16:26 | XMS_ITS | Encounter Summary ---
Author Organization 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 Historical Provider [facility] Final Result documented in this encounter Visit Diagnoses Not on filedocumented in this encounter Care Teams Blocker Polishing Relationship Specialty Start Date End Date Christiano Sandhu MD PCP - General 05/06/10 documented as of this encounter
--- OUTSIDE RECORDS SUMMARY | 2024-11-03 16:26 | XMS_ITS | Patient Health Summary ---
Author Organization [facility] Address [address] [place] [address] Care Team Providers Care Batch And Furnace Operator Name Role Phone Christiano Sandhu MD Primary Care Provider [phone] Note from [facility],non-owned Affiliates and Associated Physician Practices is amultiple site organization consisting of ambulatory clinics and hospital sitesin [place], [place], [place] and [place]. This disclosure is being madepursuant to the Care Everywhere program and may not contain all information available regarding this patient. Last updated 18.[facility] Social History Tobacco Use Types Packs/Day Years Used Date Smoking Tobacco: Never Assessed Sex and Gender Information Value Date Recorded Sex Assigned at Not on file Gender Identity Not on file Sexual Orientation Not on file Procedures * BONE MARROW BIOPSY (STL)(Performed 05/29/2021) Performed for Illness, unspecified * FLOW CYTOMETRY BONE MARROW(Performed 05/29/2021) Performed for Decreased white blood cell count, unspecified Results * FLOW CYTOMETRY BONE MARROW (05/29/2021 10:14 AM CDT) Case Report Flow Cytometry ?Case: [id number] ? Authorizing Provider: ??Miguel A Carmichael MD ?Collected: ? 05/29/2021 10:14 AM ? Ordering Location: ? [facility] Care Pathology Lab ? Received: ?05/29/2021 03:49 PM ? Pathologist: ? Laurel Cooper MD ? Specimen: ?Bone Marrow ? 06/01/2021 10:28 AM [facility] Final Diagnosis Bone marrow, flow cytometric immunophenotypic analysis: - No clonal B-cell or increased blast population seen. - See interpretation. 06/01/2021 10:28 AM [facility] Flow Cytometry Interpretation The bone marrow specimen has a viability of 96.8%. The lymphocyte, dim CD45, monocyte, and granulocyte damon are normal in relative proportion. Within the lymphocyte gate, there is no monotypic B-cell population identified (kappa: lambda ratio = 1.8:1). There is no expanded T-cell population seen. By CD34, 2.1% of all events analyzed are blasts. A bone marrow aspirate smear prepared from the flow cytometry specimen is reviewed for quality control clerk purposes. The bone marrow aspirate specimen shows no evidence of involvement by non-Hodgkin lymphoma or a high-grade myeloid neoplasm, although examination is limited by the aspiculate nature of the aspirate. Correlation with clinical findings, the bone marrow core biopsy (accession number [id number]), and relevant cytogenetic/molecu lar studies is required. 06/01/2021 10:28 AM [facility] Flow Cytometry Results Differential Result Comment Flow Cell Count /uL 9,300 Total Viability % 96.8 Lymphocytes % 18 Dim CD45 Region % 9 Monocytes % 32 Granulocytes % 39 06/01/2021 10:28 AM [facility] Reason for test Decreased white blood cell count, unspecified 06/01/2021 10:28 AM CDT [facility] Client Specimen ID # [id number] 06/01/2021 10:28 AM CDT [facility] Number of markers 10 were performed. A-2 Flow CD10 A-3 Flow CD13 A-5 Flow CD20 A-1 Flow CD5 A-4 Flow CD19 A-6 Flow CD33 A-7 Flow CD34 A-8 Flow CD45 A-9 Urbanna+CD19+ A-10 Lambda+CD19+ 06/01/2021 10:28 AM CDT [facility] Disclaimer Test performed at [facility], [address] [place] [address], [address]. *The established laboratory minimum viability is 70%. Values below the minimum may result in the failure to find an abnormal population of cells. This test was developed and its performance characteristics determined by the Flow Cytometry Laboratory. It has not been cleared by the [place] Food and Drug Administration (FDA). The FDA has determined that such clearance or approval is not necessary. This test is used for clinical purposes. It should not be regarded as investigational or for research. This laboratory is regulated under the Clinical Laboratory Improvement Amendments of 1998 (CLIA) as a qualified to perform high complexity clinical testing. 06/01/2021 10:28 AM CDT [facility] Embedded Images 10:28 AM CDT [facility] Pathology/Cytolo gy BONE MARROW SPECIMEN / Unknown 05/29/2021 10:14 AM CDT 05/29/2021 3:49 PM CDT Miguel A Carmichael MD LAB - PATHOLOGY/CYTO LOGY ORDERABLES [facility] [address] [place] [address]. [place] [address], [facility] [phone] * BONE MARROW BIOPSY (STL) (05/29/2021 10:14 AM CDT) Case Report Bone Marrow Patholog y Report ?Case: [id number] ? Authorizing Provider: ??Miguel A Carmichale MD ?Collected: ? 05/29/2021 10:14 AM ? Ordering Location: ? [facility] ? Received: ?06/02/2021 07:53 AM ? Pathologist: ? Laurel Cooper MD ? Specimens: ?? A) - Bone Marrow Clot ? B) - Bone Marrow Core ? 06/03/2021 10:46 AM [facility] Final Diagnosis Bone marrow, aspirate, clot section, and core biopsy: - Hypercellular marrow with maturing trilineage hematopoiesis and megakaryocytic hyperplasia. - No evidence of lymphoma or high-grade myeloid neoplasm. - See description. 06/03/2021 10:46 AM [facility] Comment Due to the hemodilution [...] for a hematolymphoid malignancy. 06/03/2021 10:46 AM [facility] Peripheral Smear Description Not received. 06/03/2021 10:46 AM [facility] Bone Marrow Aspirate Differential count (200 cells): not performed due to hemodilution. Specimen quality: hemodilute. Spicules: none. Predominantly peripheral blood elements. Storage iron (by special stain): not evaluable due to lack of spicules. Sideroblastic iron (by special stain): no erythroid precursors seen to assess. 06/03/2021 10:46 AM [facility] Bone Marrow Core Biopsy and [...] similar to core biopsy. 06/03/2021 10:46 AM [facility] Flow Cytometry Summary [id number]: No aberrancies. 06/03/2021 10:46 AM [facility] Clinical History Infection. Rule out hematolymphoid neoplasm. 06/03/2021 10:46 AM [facility] Materials Received Received are 18 slide(s) and 4 blocks (A1, A2, A3, B1)labeled [id number] along with a copy of the outside pathology report. [place] [address]. All original materials are returned to the referring institution, along with a copy of our final report. 06/03/2021 10:46 AM [facility] Disclaimer The performance characteristics of all immunohistochemical and indirect immunofluorescence stains (if any) cited in this report were determined by the Histopathology Laboratory of [facility]. Some of these tests were developed by [...] pathologist. 06/03/2021 10:46 AM CDT [facility] Embedded Images 06/03/2021 10:46 AM CDT [facility] Pathology/Cytology BONE MARROW SPECIMEN / Unknown 05/29/2021 10:14 AM CDT 06/02/2021 7:53 AM CDT Miscellaneous samples (specimen) BONE MARROW SPECIMEN / Unknown 05/29/2021 10:14 AM CDT 06/02/2021 7:53 AM CDT Miguel A Carmichael MD LAB - PATHOLOGY/CYTO LOGY ORDERABLES Performing Organization Address City/State/[facility] de Phone Number [facility] [address] [phone] Care Teams Batch And Furnace Operator Relationship Specialty Start Date End Date Christiano Sandhu MD [address] [place] [address] PCP - General 05/29/21
--- OUTSIDE RECORDS SUMMARY | 2024-11-03 16:26 | XMS_ITS | Encounter Summary ---
Author Organization [facility] [employer] [facility] Address [address] [place] [address] Phone Care Team Providers Care Windows Desktop Engineer Name Role Phone Christiano Sandhu MD Primary Care Provider [phone] Encounter Details Date Type Department Care Team (Late st Contact Info) Description 11/18/2014 Orders Only [facility]INCON[facility] ProviderKaylee MD [address] [place] [address] Social History Tobacco Use Types Packs/Day Years Used Date Smoking Tobacco: Never Assessed Sex and Gender Information Value Date Recorded Sex Assigned at Not on file 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 Historical Provider [facility] Final Result documented in this encounter Visit Diagnoses Not on filedocumented in this encounter Care Teams Windows Desktop Engineer Relationship Specialty Start Date End Date Christiano Sandhu MD PCP - General 05/06/10 documented as of this encounter
--- OUTSIDE RECORDS SUMMARY | 2024-11-03 16:26 | XMS_ITS | Encounter Summary ---
Author Organization [facility] Address [address] [facility] [address] [place] [address] Phone Care Team Providers Care Business Development Director Name Role Phone Christiano Sandhu MD Primary Care Provider [phone] Encounter Details Date Type Department Care Team (Late st Contact Info) Description 04/08/2015 Orders Only [facility] Lucille, Pedro Grady Jr., MD [address] [facility] [id number] [place] [address] Social History Tobacco Use Types Packs/Day Years Used Date Smoking Tobacco: Never Assessed Sex and Gender Information Value Date Recorded Sex Assigned at Not on file 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 Gender Identity Not on file Sexual Orientation Not on file documented as of this encounter Plan of Treatment Not on file documented as of this encounter Procedures Procedure Name Priority Date/Time Associated Diagnosis Comments CARDIOLOGY REPORT 04/08/2015 documented in this encounter Results * CARDIOLOGY REPORT (04/08/2015) Anatomical Region Laterality Modality Other us Pedro Adkins Jr., MD [facility] C[facility]IAC [facility] PROCEDURES Final Result documented in this encounter Visit Diagnoses Not on filedocumented in this encounter Care Teams Business Development Director Relationship Specialty Start Date End Date Christiano Sandhu MD PCP - General 05/06/10 documented as of this encounter
--- OUTSIDE RECORDS SUMMARY | 2024-11-03 16:26 | XMS_ITS | Referral Summary ---
Author Organization [facility] [address] Address [address] [place] [address] Care Team Providers Care Changeover Operator Name Role Phone Christiano Sandhu MD Primary Care Provider [phone] Allergies Active Allergy Reactions Criticality Noted Date Comments Sulfa (Sulfonamide Antibiotics) Fever Medium 07/26/2022 Change in white blood count Medications Eliquis 5 mg tablet 07/23/2022 Active atorvastatin (LIPITOR) 20 mg tablet 07/23/2022 Active diltiaZEM CD (CARDIZEM CD) 360 mg 24 hr capsule 07/23/2022 Active sotaloL (BETAPACE) 80 mg tablet 07/10/2022 Active tamsulosin (FLOMAX) 0.4 mg extended release capsule Take 0.4 mg by mouth nightly 06/30/2022 Active furosemide (LASIX) 20 mg tablet as needed 06/24/2022 Active finasteride (PROSCAR) 5 mg tablet 20 mg 07/08/2022 Active omega 3-fzf-yjv-fish oil 1,000 mg (120 mg-180 mg) capsule Active sodium, potassium & mag sulfates (SUPREP BOWEL KIT) 17.5-3.13-1.6 gram recon solnIndications :Bowel Evacuation Mix 1 bottle of prep with clear liquid start drinking prep at 6 pm the day before colonoscopy; repeat 6 hours prior to arrival time. 354 mL 07/26/2022 Active zolpidem (AMBIEN) 10 mg tablet TAKE 1 TABLET BY MOUTH EVERY DAY AT BEDTIME NEEDED FOR INSOMNIA 07/12/2022 Active Active Problems Problem Noted Date Diagnosed Date Screening for colorectal cancer 07/26/2022 Overview (07/26/2022): Added automatically from request for surgery [id number] Change in bowel habits 07/26/2022 Overview (07/26/2022): Added automatically from request for surgery [id number] Nausea 07/26/2022 Overview (07/26/2022): Added automatically from request for surgery [id number] Automatic implantable cardiac defibrillator in s itu 03/11/2021 Overview (03/11/2021): [employer] Dual ICD. Dx; HOCM, PAF. Gen change 03/04/2021-Uppstrom, chronic leads 11/04/2014. Patient follows with Dr Hobbs. Obesity with body mass index 30 or greater 09/21 Pain in wrist 10/30/2015 Postoperative pain 03/13/2015 Hypertension 01/02/2015 Paroxysmal atrial fibrillation (CMS/HCC) 015 Sick sinus syndrome (CMS/HCC) 11/13/2014 Paroxysmal ventricular tachycardia 05/14/2014 Fatigue 05/09/2014 Palpitations 01/31/2014 Obstructive sleep apnea syndrome 12/20/2013 Abnormal findings on diagnos tic imaging of heart and coronary circulation 12/20/2013 Dizziness 12/20/2013 Shortness of breath 12/20/2013 Psychophysiological insomnia 12/13/2013 Immunizations Name Administration Dates Next Due Influenza, Trivalent, Preservative Free, Intramu scular 07/17/2015 Social History Tobacco Use Types Packs/Day Years Used Date Smoking Tobacco: Former Cigarettes 1 991 - 1999 Tobacco Cessation:Counseling Given: Not Answered AUDIT-C Answer Date Recorded Q1: How often do you have a drink containing alc ohol? 2-4 times a month 09/23/2022 Q2: How many drinks containi ng alcohol do you have on a typical day when you are drinking? 1 or 2 09/23/2022 Q3: How often do you have si x or more drinks on one occasion? Never 09/23/2022 Sex and Gender Information Value Date Recorded Sex Assigned at Not on file Legal Sex Male 1:25 AM CIRCUIT MANAGER Gender Identity Not on file Sexual Orientation Not on file Last Filed Vital Signs Vital Sign Reading Time Taken Comments Blood Pressure 114/66 09/23/2022 12:00 PM CIRCUIT MANAGER Pulse 60 09/23/2022 12:00 PM CIRCUIT MANAGER Temperature 36.3 ??C (97.3 ??F) 09/23/2022 11:[address] Respiratory Rate 19 09/23/2022 12:00 PM CIRCUIT MANAGER Oxygen Saturation 95% 09/23/2022 12:00 PM CIRCUIT MANAGER Inhaled Oxygen Concentration - - Weight 108.9 kg (240 lb) 09/23/2022 9:30 AM CIRCUIT MANAGER Height 182.9 cm (6') 09/23/2022 9:30 AM CIRCUIT MANAGER Body Mass Index 32.55 09/23/2022 9:30 AM CIRCUIT MANAGER Plan of Treatment Not on file Procedures Procedure Name Priority Date/Time Associated Diagnosis Comments COLONOSCOPY 09/23/2022 11:20 AM CIRCUIT MANAGER from Last 3 Months or Most Recently Relevant to Health Maintenance Results * COLONOSCOPY (09/23/2022 11:20 AM CIRCUIT MANAGER) Anatomical Region Laterality Modality Other Narrative Procedure Note Ellen Hayes MD - 09/23/2022 11:20 AM CST ENDOSCOPY LAB Patient Name: Carolyn Chang Procedure Date: 09/23/2022 11:20AM Date of : 1975 Admit Type: Outpatient Age: 47 Gender: Male Attending MD: Ellen Hayes M.D. Room: [facility] ENDOSCOPY ROOM 01 Note Status: Finalized Procedure: Colonoscopy Indications: Screening for colorectal malignant neoplasm, Thisis the patient's first colonoscopy, Incidental changein bowel habits noted with nocturnal bowel movements, bloating and nausea Providers: Ellen Hayes M.D. Referring MD: Christiano Sandhu M.D. Medicines: Monitored Anesthesia Care Complications: No immediate complications. Estimated Blood Loss: Estimated blood loss was minimal. Procedure: Pre-Anesthesia Assessment: - Prior to the procedure, a History and Physicalwas performed, and patient medications, allergies and sensitivities were reviewed. The patient'stolerance of previous anesthesia was reviewed. The benefits, risks and alternatives of theprocedure and sedation were discussed and informed consentwas obtained. All questions were answered. Please referto the signed informed consent document in the medical record. The scope was passed under direct vision.The [id number] was introduced through the anusand advanced to the terminal ileum, with identificationof the appendiceal orifice and IC valve. Thecolonoscopy was performed without difficulty. The patient tolerated the procedure well. The quality of thebowel preparation was evaluated using the BBPS (BostonBowel Preparation Scale) with scores of: Right Colon = 3, Transverse Colon = 3 and Left Colon = 3 (entiremucosa seen well with no residual staining, smallfragments of stool or opaque liquid). The total BBPS score equals 9. The bowel preparation used was SUPREP via split dose instruction. Findings: The perianal and digital rectal examinations were normal. The terminal ileum appeared normal. Normal mucosa was found in the entire colon. Biopsies were taken witha cold forceps for histology. A 3 mm polyp was found in the transverse colon. The polyp wassessile. The polyp was removed with a cold snare. Resection and retrieval were complete. A 3 mm polyp was found in the rectum. The polyp was sessile. Thepolyp was removed with a cold snare. Resection and retrieval werecomplete. Hemorrhoids were found during retroflexion. Impression: - The examined portion of the ileum was normal. - Normal mucosa in the entire examined colon.Biopsied. - One 3 mm polyp in the transverse colon, removedwith a cold snare. Resected and retrieved. - One 3 mm polyp in the rectum, removed with a cold snare. Resected and retrieved. - Hemorrhoids. Recommendation: - The patient will be observed post-procedure,until all discharge criteria are met. - Await pathology results. - Repeat colonoscopy in 7 years for surveillancebased on pathology results. - Follow up in GI clinic for ongoing care. - Biopsy results are typically available within 7-10 days and you will be contacted with the results. If you have not recieved your results within this timeframe, please call [phone] regarding your results. - Contact Information: During normal business hours - Please call theNurse Coordinator: [phone] After hours, evening, nights, weekends and holidays- Please call the hospital general machine operator at and ask for the GI fellow vocational training instructor. - . Attending Participation: I personally performed the entire procedure. Electronically Signed By: Ellen Hayes M.D. Ellen Hayes M.D. 09/23/2022 11:49:22 AM Number of Addenda: 0 Note Initiated On: 09/23/2022 11:20 AM Ellen Hayes MD ENDOSCOPY PROCEDURES Fin al Result from Last 3 Months or Most Recently Relevant to Health Maintenance Insurance [facility] MEDICARE [facility] MEDICARE R [facility] MEDICARE Advance Directives For more information, please contact: [phone] * Full Code (Latest Code Status on File) Date Activated Date Inactivated Comments 09/23/2022 9:25 AM 09/23/2022 4:15 PM Care Teams Changeover Operator Relationship Specialty Start Date End Date Christiano Sandhu MD PCP - General 05/06/10
--- OUTSIDE RECORDS SUMMARY | 2024-11-03 16:26 | XMS_ITS | Clinical Summary ---
Author Organization [facility] Address [address] [place] [address] Care Team Providers Care Mobile Solutions Architect Name Role Phone Christiano Sandhu MD Primary Care Provider [phone] Source Comments [facility],non-owned Affiliates and Associated Physician Practices is amultiple site organization consisting of ambulatory clinics and hospital sitesin [place], [place], [place] and [place]. This disclosure is being madepursuant to the Care Everywhere program and may not contain all information available regarding this patient. Last updated 18.[facility] [employer] Social History Tobacco Use Types Packs/Day Years Used Date Smoking Tobacco: Never Assessed Sex and Gender Information Value Date Recorded Sex Assigned at Not on file Gender Identity Not on file Sexual Orientation Not on file Plan of Treatment Health Maintenance Due Date Last Done Comments COLOGUARD (AGES 45-75) - COL ON CA SCREENING 1975 COLON MONITORING 1973 COLONOSCOPY - COLON CA SCREENING 1973 CT COLONOGRAPHY - COLON CA SCREENING 1975 Colorectal Cancer Screening 1973 FIT - COLON CA SCREENING 1973 FLEX SIG - COLON CA SCREENING 1973 LIPID TESTING 1975 MEDICARE AWV ? 12 MONTHS 1973 HIV SCREENING 1988 HEPATITIS C SCREENING 03/24/1991 DTAP/TDAP/TD VACCINES (1 - Tdap) 1992 HEPATITIS B VACCINE (1 of 3 - + 3-dose series) 1992 PNEUMOCOCCAL VACCINE 50+ (1 of 1 - PCV) 2023 ZOSTER VACCINE (1 of 2) 2023 COVID-19 VACCINE (1 - 2023-2 5 season) 2024 INFLUENZA VACCINE (#1) 2024 DEPRESSION SCREENING 10/10/2024 HIB VACCINE Aged Out No longer eligi ble based on patient's age to complete this topic HPV VACCINE Aged Out No longer eligi ble based on patient's age to complete this topic MENINGOCOCCAL (Group B) VACCINE Aged Out No longer eligible based on patient's age to complete this topic MENINGOCOCCAL VACCINE Aged Out No cassandra mally eligible based on patient's age to complete this topic PNEUMOCOCCAL VACCINE Aged Out No long er eligible based on patient's age to complete this topic Care Teams Mobile Solutions Architect Relationship Specialty Start Date End Date Christiano Sandhu MD [address] [place] [address] PCP - General 05/29/21
--- OUTSIDE RECORDS SUMMARY | 2024-11-03 16:26 | XMS_ITS | Clinical Summary ---
Author Organization [facility] Address [address] [place] [place] [address] Care Team Providers Care Business Supervisor Name Role Phone Christiano Sandhu MD Primary Care Provider [phone] Allergies Active Allergy Reactions Criticality Noted Date Comments Sulfamethoxazole-Trimet hoprim Fever,Weakness High 06/25/2021 Low WBC Chills Fever Weakness Fatigue Medications apixaban (Eliquis) 5 mg tablet 01/22/2014 Active atorvastatin (LIPITOR) 20 mg tablet 06/01/2021 Active diltiaZEM (CARDIZEM CD) 360 mg Controlled Delivery 24 hour capsule 06/01/2021 Active furosemide (LASIX) 10 mg Tablet 01/22/2014 Active wvrjk-5-ZDI-EPA-fi sh oil 1,000 mg Capsule 01/22/2014 Active sotaloL (BETAPACE) 80 mg tablet 05/14/2021 Active tamsulosin (FLOMAX) 0.4 mg capsule 11/26/2020 Active Active Problems Problem Noted Date Diagnosed Date Leukopenia 06/25/2021 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 Lymphocytosis 06/25/2021 Family History Medical History Relation Name Comments Heart Disease Father Relation Name Status Comments Brother 1 Alive Brother 2 Alive Daughter Alive Father Alive Mother Alive Son Alive Social History Tobacco Use Types Packs/Day Years Used Date Smoking Tobacco: Former Cigarettes Smokeless Tobacco: Never Comments:quit around 2007 Alcohol Use Standard Drinks/Week Comments Yes 0 (1 standard drink = 0.6 oz pur e alcohol) occasional Sex and Gender Information Value Date Recorded Sex Assigned at Not on file Legal Sex Male 3:25 PM CDT Gender Identity Not on file Sexual Orientation Not on file Last Filed Vital Signs Vital Sign Reading Time Taken Comments Blood Pressure 121/68 06/25/2021 3:12 PM CDT Pulse 72 06/25/2021 3:12 PM CDT Temperature 36.9 ??C (98.5 ??F) 06/25/2021 3:12 PM CD T Respiratory Rate - - Oxygen Saturation 97% 06/25/2021 3:12 PM CDT Inhaled Oxygen Concentration - - Weight 95.4 kg (210 lb 4.8 oz) 06/25/2021 3:12 P M CDT Height 182.9 cm (6') 06/25/2021 3:12 PM CDT Body Mass Index 28.52 06/25/2021 3:12 PM CDT Plan of Treatment Health Maintenance Due Date Last Done Comments DTAP/TDAP/TD VACCINES (1 - Tdap) 1992 HEPATITIS B VACCINES (1 of 3 - 19+ 3-dose series) 1992 COLORECTAL SCREENING 2018 Colorectal Cancer Screening 2018 FIT-DNA Q 3 years 2018 FIT/FOBT Q 1 year 2018 Flex Sig/CT Colonography Q 5 years 2018 ZOSTER VACCINE (1 of 2) 2023 INFLUENZA VACCINE (#1) 2024 07/17/2015 PNEUMOCOCCAL VACCINE 0-64 YEARS Aged Out No longer eligible based on patient's age to complete this topic Insurance MEDICARE PART A AND B [facility] OPTIONS PPO [id number] Care Teams Business Supervisor Relationship Specialty Start Date End Date Christiano Sandhu MD [address] [place] [address] PCP - General Family Practice 06/25/21
--- OUTSIDE RECORDS SUMMARY | 2024-11-03 16:26 | XMS_ITS | Encounter Summary ---
Author Organization [facility] Address [address] [place] [address] Phone Care Team Providers Care Paster Hat Lining Name Role Phone Christiano Sandhu MD Primary Care Provider [phone] Encounter Details Date Type Department Care Team (Late st Contact Info) Description 02/17/2015 Orders Only [facility] ProviderKalyee MD [address] [place] [address] Social History Tobacco Use Types Packs/Day Years Used Date Smoking Tobacco: Never Assessed Sex and Gender Information Value Date Recorded Sex Assigned at Not on file Legal Sex Male 1:25 AM CHEMIST Gender Identity Not on file Sexual Orientation Not on file documented as of this encounter Plan of Treatment Not on file documented as of this encounter Procedures Procedure Name Priority Date/Time Associated Diagnosis Comments CARDIOLOGY REPORT 02/17/2015 documented in this encounter Results * CARDIOLOGY REPORT (02/17/2015) Anatomical Region Laterality Modality Other Narrative 02/17/2015 Ordered by an unspecified provider. Historical Provider [facility] Final Result documented in this encounter Visit Diagnoses Not on filedocumented in this encounter Care Teams Paster Hat Lining Relationship Specialty Start Date End Date Christiano Sandhu MD PCP - General 05/06/10 documented as of this encounter
--- OUTSIDE RECORDS SUMMARY | 2024-11-03 16:26 | XMS_ITS | Clinical Summary ---
Author Organization [facility] [address] Address [address] [place] [address] Care Team Providers Care Fire Safety Director Name Role Phone Christiano Sandhu MD Primary Care Provider [phone] Allergies Active Allergy Reactions Criticality Noted Date [...] mg tablet 20 mg 07/08/2022 Active omega 0-ocd-mhh-fish oil 1,000 mg (120 mg-180 mg) capsule [...] (07/26/2022): Added automatically from request for surgery [id number] Change in bowel habits 07/26/2022 Overview (07/26/2022): Added automatically from request for surgery [id number] Nausea 07/26/2022 Overview (07/26/2022): Added automatically from request for surgery [id number] Automatic implantable cardiac defibrillator in s itu 03/11/2021 Overview (03/11/2021): [employer] Dual ICD. Dx; HOCM, PAF. Gen change [...] Influenza, Trivalent, Preservative Free, Intramu scular 07/17/2015 Surgical History Surgery Date Site/Laterality Comments OTHER SURGICAL HISTORY 10/10/2014 - 10/09/2015 septal myectomy(Cardiac) CARDIAC DEFIBRILLATOR PLACEMENT 10/10/2014 - 10/09/2015 eXen[employer]ent[employer]-last device check 02/2022-media section Medical History Medical History Date Comments Personal history of other di seases of the circulatory system History of cardiac murmur - (Added by TW Conv) Cardiac arrhythmia Non-sustained V-tach, NSVT/Holter 2013 Arthritis DALIA (obstructive sleep apnea) Depression Anxiety disorder Hypertrophic cardiomyopathy (CMS/HCC) (HCC) Prostatitis Pancytopenia (HCC) neg. bone mar row bx 05/2021 Family History Medical History Relation Name Comments Heart attack Father's Brother Family hist ory of heart attack - (Added by TW Conv) Relation Name Status Comments Father's Brother Social History Tobacco Use Types Packs/Day Years Used Date Smoking Tobacco: Former Cigarettes 1 - 1999 Tobacco Cessation:Counseling Given: Not Answered [...] on file Legal Sex Male 1:25 AM SUBWAY TRAIN DRIVER Gender Identity Not on file Sexual Orientation Not on file Obstetrics History Last Filed Vital Signs Vital Sign Reading Time Taken Comments Blood Pressure 114/66 09/23/2022 12:00 PM SUBWAY TRAIN DRIVER Pulse 60 09/23/2022 12:00 PM SUBWAY TRAIN DRIVER Temperature 36.3 ??C (97.3 ??F) 09/23/2022 11:[address] Respiratory Rate 19 09/23/2022 12:00 PM SUBWAY TRAIN DRIVER Oxygen Saturation 95% 09/23/2022 12:00 PM SUBWAY TRAIN DRIVER Inhaled Oxygen Concentration - - Weight 108.9 kg (240 lb) 09/23/2022 9:30 AM SUBWAY TRAIN DRIVER Height 182.9 cm (6') 09/23/2022 9:30 AM SUBWAY TRAIN DRIVER Body Mass Index 32.55 09/23/2022 9:30 AM SUBWAY TRAIN DRIVER Plan of Treatment Health Maintenance Due Date Last Done Comments Depression Screening 1973 Hepatitis C Screening 1973 Prostate Cancer Screening-PSA 1973 DTaP/Tdap/Td Vaccine (1 - Tdap) 1984 Hepatitis B Screening 1991 Regular Well Visit/Exam 18-64 1991 Zoster Vaccine (1 of 2) 2023 Influenza Vaccine (#1) 2024 07/17/2015 Colon Cancer Screening-Colonoscopy 09/23/20322021 Pneumococcal vaccine <65 Aged Out No longer eligible based on patient's age to complete this topic Procedures Procedure Name Priority Date/Time Associated Diagnosis Comments COLONOSCOPY 09/23/2022 11:20 AM SUBWAY TRAIN DRIVER from Last 3 Months or Most Recently Relevant to Health Maintenance Results * COLONOSCOPY (09/23/2022 11:20 AM SUBWAY TRAIN DRIVER) Anatomical Region Laterality Modality Other Narrative Procedure Note Ellen Hayes MD - 09/23/2022 11:20 AM CST ENDOSCOPY LAB Patient Name: Carolyn Chang Procedure Date: 09/23/2022 11:20AM Date of : 1975 Admit Type: Outpatient Age: 47 Gender: Male Attending MD: lElen Hayes M.D. Room: [facility] ENDOSCOPY ROOM 01 Note Status: Finalized Procedure: [...] The scope was passed under direct vision.The [id number] was introduced through the anusand advanced to [...] your results within this timeframe, please call [phone] regarding your results. - Contact Information: During normal business hours - Please call theNurse Coordinator: [phone] After hours, evening, nights, weekends and holidays- Please call the hospital power mule operator at and ask for the GI fellow meteorologist liaison. - . Attending Participation: I personally performed the entire procedure. Electronically Signed By: Ellen Hayes M.D. Ellen Hayes M.D. 09/23/2022 11:49:22 AM Number of Addenda: 0 Note Initiated On: 09/23/2022 11:20 AM Ellen Hayes MD ENDOSCOPY PROCEDURES Fin al Result from Last 3 Months or Most Recently Relevant to Health Maintenance Insurance [facility] H[facility]/PPO Address: [facility] [address] [place] [address] MEDICARE [facility]/PPO Address: [facility] [address] [place] [address] MEDICARE [facility] H[facility]/PPO Address: [address] [address] [place] [address] MEDICARE Advance Directives For more information, please contact: [phone] * Full Code (Latest Code Status on File) Date Activated Date Inactivated Comments 09/23/2022 9:25 AM 09/23/2022 4:15 PM Care Teams Fire Safety Director Relationship Specialty Start Date End Date Christiano Sandhu MD PCP - General 05/06/10
--- OUTSIDE RECORDS SUMMARY | 2024-11-03 16:26 | XMS_ITS | Encounter Summary ---
Author Organization [facility] Address [address] [place] [address] Care Team Providers Care Dentist Name Role Phone Christiano Sandhu MD Primary Care Provider [phone] Encounter Details Date Type Department Care Team (Late st Contact Info) Description 05/29/2021 Lab Requisition [facility] Pathology Lab [address] [place] [address] Miguel A Carmichael MD [address] [place] [address] Decreased white blood cell count, unspecified Social History Tobacco Use Types Packs/Day Years Used Date Smoking Tobacco: Never Assessed Sex and Gender Information Value Date Recorded Sex Assigned at Not on file Gender Identity Not on file Sexual Orientation Not on file documented as of this encounter Plan of Treatment Not on file documented as of this encounter Procedures Procedure Name Priority Date/Time Associated Diagnosis Comments FLOW CYTOMETRY BONE MARROW Routine 05/29/2021 10:14 AM CDT Decreased white blood cell count, unspecified documented in this encounter Results * FLOW CYTOMETRY BONE MARROW (05/29/2021 10:14 AM CDT) Case Report Flow Cytometry ?Case: [id number] ? Authorizing Provider: ??Miguel A Carmichael MD ?Collected: ? 05/29/2021 10:14 AM ? Ordering Location: ? [facility] Pathology Lab ? Received: ?05/29/2021 03:49 PM ? Pathologist: ? Laurel Cooper MD ? Specimen: ?Bone Marrow ? 06/01/2021 10:28 AM [facility] Final Diagnosis Bone marrow, flow cytometric immunophenotypic analysis: - No clonal B-cell or increased blast population seen. - See interpretation. 06/01/2021 10:28 AM [facility] Flow Cytometry Interpretation The bone [...] the flow cytometry specimen is reviewed for air quality specialist purposes. The bone marrow aspirate specimen shows no evidence of involvement by non-Hodgkin lymphoma or a high-grade myeloid neoplasm, although examination is limited by the aspiculate nature of the aspirate. Correlation with clinical findings, the bone marrow core biopsy (accession number TBD), and relevant cytogenetic/molecu lar studies is required. 06/01/2021 10:28 AM [facility] Flow Cytometry Results Differential Result Comment Flow Cell Count /uL 9,300 Total Viability % 96.8 Lymphocytes % 18 Dim CD45 Region % 9 Monocytes % 32 Granulocytes % 39 06/01/2021 10:28 AM CDT [facility] Reason for test Decreased white blood cell count, unspecified 06/01/2021 10:28 AM CDT [facility] PATH[facility] Client Specimen ID # [id number] 06/01/2021 10:28 AM CDT [facility] Number of markers 10 were performed. A-2 Flow CD10 A-3 Flow CD13 A-5 Flow CD20 A-1 Flow CD5 A-4 Flow CD19 A-6 Flow CD33 A-7 Flow CD34 A-8 Flow CD45 A-9 Fernando Salinas+CD19+ A-10 Lambda+CD19+ 06/01/2021 10:28 AM T [facility] Disclaimer Test performed at [facility], [address] [place] [address], [id number]. *The established laboratory minimum viability is 70%. [...] complexity clinical testing. 06/01/2021 10:28 AM CDT [facility] Embedded Images 10:28 AM CDT [facility] Pathology/Cytolo gy BONE MARROW SPECIMEN / Unknown 05/29/2021 10:14 AM CDT 05/29/2021 3:49 PM CDT Miguel A Carmichael MD LAB - PATHOLOGY/CYTO LOGY ORDERABLES [facility] [address] [place] [address] documented in this encounter Visit Diagnoses Diagnosis Decreased white blood cell count, unspecified documented in this encounter Care Teams Dentist Relationship Specialty Start Date End Date Christiano Sandhu MD [address] [place] [address] PCP - General 05/29/21 documented as of this encounter
--- OUTSIDE RECORDS SUMMARY | 2024-11-03 16:26 | XMS_ITS | Referral Summary ---
Author Organization [facility] Address [address] [place] [address] Care Team Providers Care Relocation Specialist Name Role Phone Christiano Sandhu MD Primary Care Provider [phone] Source Comments [facility],non-[facility] Affiliates and Associated Physician Practices is amultiple site organization consisting of ambulatory clinics and hospital sitesin [place], [place], [place] and [place]. This disclosure is being madepursuant to the Care Everywhere program and may not contain all information available regarding this patient. Last updated 18.[facility] Social History Tobacco Use Types Packs/Day Years Used Date Smoking Tobacco: Never Assessed Sex and Gender Information Value Date Recorded Sex Assigned at Not on file Gender Identity Not on file Sexual Orientation Not on file Plan of Treatment Not on file Care Teams Relocation Specialist Relationship Specialty Start Date End Date Christiano Sandhu MD [address] [place] [address] [facility] - General 05/29/21
[2024-11-03 16:48] VITALS: BP 160/73; PULSE 86; RESP 18; TEMP 36.6; O2SAT 97
--- NOTE | 2024-11-03 17:22 | ED.LOWEXIN ---
HPI - Extremity Injury (Lower) General Chief Complaint: Extremity Injury, Lower Stated Complaint: Fall Time Seen by Provider: 11/03/24 16:26 Source: patient and family Mode of arrival: ambulatory Limitations: no limitations History of Present Illness HPI Narrative: this is a 49-year-old male with some history of blood thinner use on Xarelto had a fall earlier this morning while taking out the trash slipped on a patch of ice causing pain to his lateral right hip and right wrist and hand area has a hematoma on the right hip pain level is about a 3/10 no other injuries noted has good range of motion in his hand and is lower extremity. complaint: hip injury and other Onset (ago): hour(s) Injury: Right: hip ( Hip injury with hematoma) Type of Injury: blunt Place: street/outdoors Severity: moderate Severity scale (1-10): 4 Relieving factors: nothing Exacerbating factors: weight bearing, movement and palpation Related Data Home Medications ?Medication ?Instructions ?Recorded ?Confirmed ?Last Taken ?Type omega-3 fatty acids 1,000 mg 1,000 mg PO DAILY 03/12/20 10/17/24 05/27/21 History capsule (Fish Oil Concentrate) tamsulosin 0.4 mg capsule (Flomax) 0.4 mg PO HS 01/15/21 10/17/24 05/26/21 History finasteride 5 mg tablet 5 mg PO .QD 07/12/22 10/17/24 Unknown History Allergies Allergy/AdvReac Type Severity Reaction Status Date / Time Sulfa (Sulfonamide AdvReac Severe Fever and Verified 11/03/24 16:57 Antibiotics) bicytopenia Review of Systems Review of Systems: All systems reviewed & are unremarkable except as noted in HPI and below PMFSH Past Medical History Medical History Nocturia Screening for prostate cancer Diabetes Insomnia Fever of unknown origin (FUO) Pacemaker complications DALIA (obstructive sleep apnea) Chronic anticoagulation ICD (implantable cardioverter-defibrillator) in place [employer], implanted by Dr. Waldrop 2104 Generator change 2020 HOCM (hypertrophic obstructive cardiomyopathy) s/p myomectomy Hypertension Headache, migraine Hyperlipidemia Heart murmur Surgical History Surgical History Status post cardiac surgery HOCM s/p myomectomy Family History Family History Grandparent Family history of lung cancer Family history of coronary artery disease Hypertension Cerebrovascular accident Parkinson disease Father Acute myocardial infarction Hypertension Mother No problems noted. Sibling No problems noted. 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 Smoking packs per day: 1 Smoking cigarettes per day: 20.0 Years smoked: 10 Smoking pack-years: 10.00 Smoking status: Former smoker Tobacco type: cigarettes Second hand tobacco smoke exposure: Yes Smoking end date: 10/10/12 Alcohol intake: never Drinks per week: 1 Substance use: current Substance use type: marijuana Other substance usage details: medical marijuana Last use: 05/26/21; medical marijuana for neuropathy Lack of Transportation: No Lack of Food: Never True Current Housing: I Have Housing Concerned About Future Housing: No Difficulty Paying Gas/Electric Bills: No Difficulty Paying for Meds: No Currently Unemployed: No Education: Bachelor's Degree Difficulty w/ Childcare or Family Care: No Living arrangements: with family Occupation/Education: 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 Spiritual care concerns: No Exam Const: General: healthy appearing, no acute distress and alert Nutritional Appearance: well nourished Orientation/consciousness: patient oriented x3 Limitations: no limitations Neck: Neck: normal visual inspection Chest: Chest palpation & inspection: normal inspection of the chest Resp: Effort & Inspection: normal respiratory effort Auscultation: clear to auscultation bilaterally Cardio: Rate: regular rate Rhythm: regular rhythm GI: GI Palp: Yes Soft to palpation Auscultation: normal bowel sounds Skin: Wounds: wounds noted Other: Hematoma lateral hip on the right Neuro: General: patient oriented x3, moves all extremities, no meningeal signs and no focal motor deficits Extrem: General: normal to inspection Psych: Mental Status: mental status grossly normal Course Course Emergency Course: patient had x-rays performed of the right hip and pelvis and the hand and wrist area that were performed and reviewed. Vital Signs Vital signs: Vital Signs Temperature 36.6 C 11/03/24 16:48 Pulse Rate 86 11/03/24 16:48 Respiratory Rate 18 11/03/24 16:48 Blood Pressure 160/73 H 11/03/24 16:48 Pulse Oximetry 97 11/03/24 16:48 Oxygen Delivery Room Air 11/03/24 16:48 Temperature 36.6 C 11/03/24 16:48 Pulse Rate 86 11/03/24 16:48 Respiratory Rate 18 11/03/24 16:48 Blood Pressure 160/73 H 11/03/24 16:48 Pulse Oximetry 97 11/03/24 16:48 Oxygen Delivery Room Air 11/03/24 16:48 Critical Care Time Critical Care Time Critical Care Time: No Discharge Plan Discharge Clinical Impression: Hematoma Strain of muscle of right hip Qualifiers: Encounter type: initial encounter Qualified Code(s): S76.011A - Strain of muscle, fascia and tendon of right hip, initial encounter Finger sprain Qualifiers: Encounter type: initial encounter Finger: thumb Sprain of finger site: unspecified site Laterality: right Qualified Code(s): S63.601A - Unspecified sprain of right thumb, initial encounter Patient Disposition: Home, Self-Care Condition: Stable Instructions: Antibiotic Form, Muscle Strain (ED), Hematoma (ED) Additional Instructions: advised patient to take Tylenol as needed and to follow with primary within a week further evaluation treatment. Patient Language: Mohawk Prescriptions: No Action tamsulosin [Flomax] 0.4 mg capsule 0.4 mg PO HS zolpidem 6.25 mg tablet,ext release multiphase 6.25 mg PO .pm Qty: 30 0RF atorvastatin 40 mg tablet See Rx Instructions .ROUTE .COMPLEX Qty: 90 3RF Dose Instruction: TAKE 1 TABLET BY MOUTH DAILY Rx Instructions: TAKE 1 TABLET BY MOUTH DAILY (DME) blood-glucose meter [Accu-Chek Guide Glucose Meter] Misc See Rx Instructions .Route Qty: 1 0RF Rx Instructions: As directed (DME) Accu-Chek SmartView Test Strip Strip See Rx Instructions .Route Qty: 100 0RF Rx Instructions: BID (DME) lancets [Accu-Chek Softclix Lancets] Misc See Rx Instructions .Route Qty: 100 0RF Rx Instructions: BID omega-3 fatty acids [Fish Oil Concentrate] 1,000 mg capsule 1,000 mg PO DAILY finasteride 5 mg tablet 5 mg PO .QD dapagliflozin propanediol 10 mg tablet 10 mg PO DAILY Qty: 30 3RF metformin 1,000 mg tablet extended release 24hr 1,000 mg PO DAILY Qty: 30 1RF amlodipine 10 mg tablet See Rx Instructions .ROUTE .COMPLEX Qty: 90 2RF Dose Instruction: TAKE 1 TABLET BY MOUTH DAILY Rx Instructions: TAKE 1 TABLET BY MOUTH DAILY sotalol 80 mg tablet See Rx Instructions .ROUTE .COMPLEX Qty: 180 2RF Dose Instruction: TAKE 1 TABLET BY MOUTH EVERY 12 HOURS Rx Instructions: TAKE 1 TABLET BY MOUTH EVERY 12 HOURS Eliquis 5 mg tablet See Rx Instructions .ROUTE .COMPLEX Qty: 180 3RF Dose Instruction: TAKE 1 TABLET BY MOUTH TWICE DAILY Rx Instructions: TAKE 1 TABLET BY MOUTH TWICE DAILY Follow-up/Referrals: Kj,Ellen Summers MD [Primary Care Provider] -
--- OUTSIDE RECORDS SUMMARY | 2024-11-03 17:28 | XMS_ITS | Encounter Summary ---
Author Organization [facility] [place] [facility] Address [address] [place] [address] Phone Care Team Providers Care Dry Kiln Burner Name Role Phone Christiano Sandhu MD Primary Care Provider [phone] Encounter Details Date Type Department Care Team (Late st Contact Info) Description 03/17/2015 Orders Only [facility] ProviderKaylee MD [address] [place] [address] Social History Tobacco Use Types Packs/Day Years Used Date Smoking Tobacco: Never Assessed Sex and Gender Information Value Date Recorded Sex Assigned at Not on file 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
--- OUTSIDE RECORDS SUMMARY | 2024-11-03 17:28 | XMS_ITS | Referral Summary ---
Author Organization [facility] [address] Address [address] [place] [address] Care Team Providers Care Driver Guide Name Role Phone Christiano Sandhu MD Primary Care Provider [phone] Allergies Active Allergy Reactions Criticality Noted Date [...] mg tablet 20 mg 07/08/2022 Active omega 6-ftj-sdq-fish oil 1,000 mg (120 mg-180 mg) capsule [...] (07/26/2022): Added automatically from request for surgery [id number] Change in bowel habits 07/26/2022 Overview (07/26/2022): Added automatically from request for surgery [id number] Nausea 07/26/2022 Overview (07/26/2022): Added automatically from request for surgery [id number] Automatic implantable cardiac defibrillator in s itu 03/11/2021 Overview (03/11/2021): [facility] Dual ICD. Dx; HOCM, PAF. 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 Gender Identity Not on file Sexual Orientation Not on file Last Filed Vital Signs Vital Sign Reading Time Taken Comments Blood Pressure 114/66 09/23/2022 12:00 PM CANDY ATTENDANT Pulse 60 09/23/2022 12:00 PM CANDY ATTENDANT Temperature 36.3 ??C (97.3 ??F) 09/23/2022 11:[address] Respiratory Rate 19 09/23/2022 12:00 PM CANDY ATTENDANT Oxygen Saturation 95% 09/23/2022 12:00 PM CANDY ATTENDANT Inhaled Oxygen Concentration - - Weight 108.9 kg (240 lb) 09/23/2022 9:30 AM CANDY ATTENDANT Height 182.9 cm (6') 09/23/2022 9:30 AM CANDY ATTENDANT Body Mass Index 32.55 09/23/2022 9:30 AM CANDY ATTENDANT Plan of Treatment Not on file Procedures Procedure Name Priority Date/Time Associated Diagnosis Comments COLONOSCOPY 09/23/2022 11:20 AM CANDY ATTENDANT from Last 3 Months or Most Recently Relevant to Health Maintenance Results * COLONOSCOPY (09/23/2022 11:20 AM CANDY ATTENDANT) Anatomical Region Laterality Modality Other Narrative Procedure Note Ellen Hayes MD - 09/23/2022 11:20 AM [facility] ENDOSCOPY LAB Patient Name: Carolyn Chang Procedure Date: 09/23/2022 11:20AM Date of : 1975 Admit Type: Outpatient Age: 47 Gender: Male Attending MD: Ellen Hayes M.D. Room: [facility] ENDOSCOPY ROOM 01 Note Status: Finalized [...] The scope was passed under direct vision.The [id number] was introduced through the anusand advanced to [...] your results within this timeframe, please call [phone] regarding your results. - Contact Information: During normal business hours - Please call theNurse Coordinator: [phone] After hours, evening, nights, weekends and holidays- Please call the hospital marine service operator at and ask for the GI fellow wardrobe image consultant. - . Attending Participation: I personally performed the entire procedure. Electronically Signed By: Ellen Hayes M.D. Ellen Hayes M.D. 09/23/2022 11:49:22 AM Number of Addenda: 0 Note Initiated On: 09/23/2022 11:20 AM Ellen Hayes MD ENDOSCOPY PROCEDURES Fin al Result from Last 3 Months or Most Recently Relevant to Health Maintenance Insurance [facility] MEDICARE [facility] MEDICARE R [facility] MEDICARE Advance Directives For more information, please contact: [phone] * Full Code (Latest Code Status on File) Date Activated Date Inactivated Comments 09/23/2022 9:25 AM 09/23/2022 4:15 PM Care Teams Driver Guide Relationship Specialty Start Date End Date Christiano Sandhu MD PCP - General 05/06/10
--- OUTSIDE RECORDS SUMMARY | 2024-11-03 17:28 | XMS_ITS | Patient Health Summary ---
Author Organization [facility] Address [address] [place] [address] Care Team Providers Care Counterintelligence/Humint Specialist Name Role Phone Christiano Sandhu MD Primary Care Provider [phone] Note from [facility],non-owned Affiliates and Associated Physician Practices is amultiple site organization consisting of ambulatory clinics and hospital sitesin [place], [place], [place] and [place]. This disclosure is being madepursuant to the Care Everywhere program and may not contain all information available regarding this patient. Last updated 18.[facility] Social History Tobacco Use Types Packs/Day [...] AM CDT) Case Report Flow Cytometry ?Case: [id number] ? Authorizing Provider: ??Miguel A Carmichael MD ?Collected: ? 05/29/2021 10:14 AM ? Ordering Location: ? [facility] Care Pathology Lab ? Received: ?05/29/2021 03:49 PM ? Pathologist: ? Laurel Cooper MD ? Specimen: ?Bone Marrow ? 06/01/2021 10:28 AM [facility] Final Diagnosis Bone marrow, flow cytometric immunophenotypic analysis: - No clonal B-cell or increased blast population seen. - See interpretation. 06/01/2021 10:28 AM [facility] Flow Cytometry Interpretation The bone [...] flow cytometry specimen is reviewed for quality improvement engineer purposes. The bone marrow aspirate specimen shows no evidence of involvement by non-Hodgkin lymphoma or a high-grade myeloid neoplasm, although examination is limited by the aspiculate nature of the aspirate. Correlation with clinical findings, the bone marrow core biopsy (accession number TBD), and relevant cytogenetic/molecu lar studies is required. 06/01/2021 10:28 AM [facility] Flow Cytometry Results Differential Result Comment Flow Cell Count /uL 9,300 Total Viability % 96.8 Lymphocytes % 18 Dim CD45 Region % 9 Monocytes % 32 Granulocytes % 39 06/01/2021 10:28 AM [facility] Reason for test Decreased white blood cell count, unspecified 06/01/2021 10:28 AM CDT [facility] PATHOLOGY LAB Client Specimen ID # [id number] 06/01/2021 10:28 AM CDT [facility] PATHOLOGY LAB Number of markers 10 were performed. A-2 Flow CD10 A-3 Flow CD13 A-5 Flow CD20 A-1 Flow CD5 A-4 Flow CD19 A-6 Flow CD33 A-7 Flow CD34 A-8 Flow CD45 A-9 Pala+CD19+ A-10 Lambda+CD19+ 06/01/2021 10:28 AM CDT [facility] PATHOLOGY LAB Disclaimer Test performed at [facility], [address] [place] [address], [address]. *The established laboratory minimum viability is 70%. [...] complexity clinical testing. 06/01/2021 10:28 AM CDT [facility] PATHOLOGY LAB Embedded Images 10:28 AM CDT [facility] PATHOLOGY LAB Pathology/Cytolo gy BONE MARROW SPECIMEN / Unknown 05/29/2021 10:14 AM CDT 05/29/2021 3:49 PM CDT Miguel A Carmichael MD LAB - PATHOLOGY/CYTO LOGY ORDERABLES [facility] PATHOLOGY LAB [address] [place] [address] [address], [facility] [phone] * BONE MARROW BIOPSY (STL) (05/29/2021 10:14 AM CDT) Case Report Bone Marrow Patholog y Report ?Case: [id number] ? Authorizing Provider: ??Miguel A Carmichael MD ?Collected: ? 05/29/2021 10:14 AM ? Ordering Location: ? [facility] Pathology Lab ? Received: ?06/02/2021 07:53 AM ? Pathologist: ? Laurel Cooper MD ? Specimens: ?? A) - Bone Marrow Clot ? B) - Bone Marrow Core ? 06/03/2021 10:46 AM [facility] Final Diagnosis Bone marrow, aspirate, clot section, and core biopsy: - Hypercellular marrow with maturing trilineage hematopoiesis and megakaryocytic hyperplasia. - No evidence of lymphoma or high-grade myeloid neoplasm. - See description. 06/03/2021 10:46 AM [facility] Comment Due to the hemodilution [...] for a hematolymphoid malignancy. 06/03/2021 10:46 AM [facility] Peripheral Smear Description Not received. 06/03/2021 10:46 AM [facility] Bone Marrow Aspirate Differential count (200 cells): not performed due to hemodilution. Specimen quality: hemodilute. Spicules: none. Predominantly peripheral blood elements. Storage iron (by special stain): not evaluable due to lack of spicules. Sideroblastic iron (by special stain): no erythroid precursors seen to assess. 06/03/2021 10:46 AM [facility] Bone Marrow Core Biopsy and [...] similar to core biopsy. 06/03/2021 10:46 AM [facility] Flow Cytometry Summary [id number]: No aberrancies. 06/03/2021 10:46 AM [facility] Clinical History Infection. Rule out hematolymphoid neoplasm. 06/03/2021 10:46 AM [facility] Materials Received Received are 18 slide(s) and 4 blocks (A1, A2, A3, B1)labeled [id number] along with a copy of the outside pathology report. The [place] [address]. All original materials are returned to the referring institution, along with a copy of our final report. 06/03/2021 10:46 AM [facility] Disclaimer The performance characteristics of all immunohistochemical and indirect immunofluorescence stains (if any) cited in this report were determined by the Histopathology Laboratory of [facility]. Some of these tests were developed by [...] attending (teaching) pathologist. 06/03/2021 10:46 AM CDT [facility] PATHOLOGY LAB Embedded Images 06/03/2021 10:46 AM CDT [facility] PATHOLOGY LAB Pathology/Cytology BONE MARROW SPECIMEN / Unknown 05/29/2021 10:14 AM CDT 06/02/2021 7:53 AM CDT Miscellaneous samples (specimen) BONE MARROW SPECIMEN / Unknown 05/29/2021 10:14 AM CDT 06/02/2021 7:53 AM CDT Miguel A Carmichael MD LAB - PATHOLOGY/CYTO LOGY ORDERABLES Performing Organization Address City/State/[facility] de Phone Number [facility] PATHOLOGY LAB [address] [phone] Care Teams Counterintelligence/Humint Specialist Relationship Specialty Start Date End Date Christiano Sandhu MD [address] [place] [address] PCP - General 05/29/21
--- OUTSIDE RECORDS SUMMARY | 2024-11-03 17:28 | XMS_ITS | Encounter Summary ---
Author Organization [facility] [employer] [facility] Address [address] [place] [address] Phone Care Team Providers Care Manager Social Responsibility Name Role Phone Christiano Sandhu MD Primary Care Provider [phone] Encounter Details Date Type Department Care Team (Late st Contact Info) Description 11/05/2014 Orders Only [facility] ProviderKaylee MD [address] [place] [address] Social History Tobacco Use Types Packs/Day Years Used Date Smoking Tobacco: Never Assessed Sex and Gender Information Value Date Recorded Sex Assigned at Not on file 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
--- OUTSIDE RECORDS SUMMARY | 2024-11-03 17:28 | XMS_ITS | Clinical Summary ---
Author Organization [facility] Address [address] [place] [address] Care Team Providers Care Rewinder Operator Helper Name Role Phone Christiano Sandhu MD Primary Care Provider [phone] Source Comments [facility],non-owned Affiliates and Associated Physician Practices is amultiple site organization consisting of ambulatory clinics and hospital sitesin [place], [place], [place]. This disclosure is being madepursuant to the Care Everywhere program and may not contain all information available regarding this patient. Last updated 18.[facility] [place] Social History Tobacco Use Types Packs/Day Years [...] age to complete this topic Care Teams Rewinder Operator Helper Relationship Specialty Start Date End Date Christiano Sandhu MD [address] [place] [address] PCP - General 05/29/21
--- OUTSIDE RECORDS SUMMARY | 2024-11-03 17:28 | XMS_ITS | Encounter Summary ---
Author Organization [facility] Address [address] [place] [address] Phone Care Team Providers Care Curtain Drier Name Role Phone Christiano Sandhu MD Primary Care Provider [phone] Encounter Details Date Type Department Care Team (Late st Contact Info) Description 06/18/2016 Orders Only [facility] Provider, MD Kaylee [address] [place] [address] Social History Tobacco Use Types Packs/Day Years Used Date Smoking Tobacco: Never Assessed Sex and Gender Information Value Date Recorded Sex Assigned at Not on file 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
--- OUTSIDE RECORDS SUMMARY | 2024-11-03 17:28 | XMS_ITS | Encounter Summary ---
Author Organization [facility] Address [address] [place] [address] Care Team Providers Care Vocational Director Name Role Phone Christiano Sandhu MD Primary Care Provider [phone] Encounter Details Date Type Department Care Team (Late st Contact Info) Description 06/02/2021 Lab Requisition [facility] Care Pathology Lab [address] [place] [address] Miguel A Carmichael MD [address] [place] [address] Illness, unspecified Social History Tobacco Use [...] Report Bone Marrow Patholog y Report ?Case: [id number] ? Authorizing Provider: ??Miguel A Carmichael MD ?Collected: ? 05/29/2021 10:14 AM ? Ordering Location: ? [facility]ology [facility] ? Received: ?06/02/2021 07:53 AM ? Pathologist: ? Laurel Cooper MD ? Specimens: ?? A) - Bone Marrow Clot ? B) - Bone Marrow Core ? 06/03/2021 10:46 AM [facility] Final Diagnosis Bone marrow, aspirate, clot section, and core biopsy: - Hypercellular marrow with maturing trilineage hematopoiesis and megakaryocytic hyperplasia. - No evidence of lymphoma or high-grade myeloid neoplasm. - See description. 06/03/2021 10:46 AM [facility] Comment Due to the [...] for a hematolymphoid malignancy. 06/03/2021 10:46 AM [facility] Peripheral Smear Description Not received. 06/03/2021 10:46 AM [facility] Bone Marrow Aspirate Differential count (200 cells): not performed due to hemodilution. Specimen quality: hemodilute. Spicules: none. Predominantly peripheral blood elements. Storage iron (by special stain): not evaluable due to lack of spicules. Sideroblastic iron (by special stain): no erythroid precursors seen to assess. 06/03/2021 10:46 AM [facility] Bone Marrow Core Biopsy [...] similar to core biopsy. 06/03/2021 10:46 AM [facility] Flow Cytometry Summary [id number]: No aberrancies. 06/03/2021 10:46 AM [facility] Clinical History Infection. Rule out hematolymphoid neoplasm. 06/03/2021 10:46 AM [facility] Materials Received Received are 18 slide(s) and 4 blocks (A1, A2, A3, B1)labeled [id number] along with a copy of the outside pathology report. [place] [address]. All original materials are returned to the referring institution, along with a copy of our final report. 06/03/2021 10:46 AM [facility] Disclaimer The performance characteristics of all immunohistochemical and indirect immunofluorescence stains (if any) cited in this report were determined by the Histopathology Laboratory of [facility]. Some of these tests were [...] attending (teaching) pathologist. 06/03/2021 10:46 AM CDT [facility] PATHOLOGY LAB Embedded Images 06/03/2021 10:46 AM CDT [facility] PATHOLOGY LAB Pathology/Cytology BONE MARROW SPECIMEN / Unknown 05/29/2021 10:14 AM CDT 06/02/2021 7:53 AM CDT Miscellaneous samples (specimen) BONE MARROW SPECIMEN / Unknown 05/29/2021 10:14 AM CDT 06/02/2021 7:53 AM CDT Miguel A Carmichael MD LAB - PATHOLOGY/CYTO LOGY ORDERABLES [facility] PATHOLOGY LAB [address] [phone] documented in this encounter Visit Diagnoses Diagnosis Illness, unspecified documented in this encounter Care Teams Vocational Director Relationship Specialty Start Date End Date Christiano Sandhu MD [address] [place] [address] PCP - General 05/29/21 documented as of this encounter
--- OUTSIDE RECORDS SUMMARY | 2024-11-03 17:28 | XMS_ITS | Encounter Summary ---
Author Organization [facility] Address [address] [place] [address] Phone Care Team Providers Care Tutoring Manager Name Role Phone Christiano Sandhu MD Primary Care Provider [phone] Encounter Details Date Type Department Care Team (Late st Contact Info) Description 06/17/2015 Orders Only [facility] CLINCONV ProviderKaylee MD [address] [place] [address] Social History Tobacco Use Types Packs/Day Years Used Date Smoking Tobacco: Never Assessed Sex and Gender Information Value Date Recorded Sex Assigned at Not on file 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
--- OUTSIDE RECORDS SUMMARY | 2024-11-03 17:28 | XMS_ITS | Encounter Summary ---
Author Organization [facility] Address [address] [place] [address] Care Team Providers Care Receiving Supervisor Name Role Phone Christiano Sandhu MD Primary Care Provider [phone] Encounter Details Date Type Department Care Team (Late st Contact Info) Description 05/29/2021 Lab Requisition [facility] Pathology Lab [address] [place] [address] Miguel A Carmichael MD [address] [place] [address] Decreased white blood cell count, unspecified [...] AM CDT) Case Report Flow Cytometry ?Case: [id number] ? Authorizing Provider: ??Miguel A Carmichael MD ?Collected: ? 05/29/2021 10:14 AM ? Ordering Location: ? [facility] Pathology Lab ? Received: ?05/29/2021 03:49 PM ? Pathologist: ? Laurel Cooper MD ? Specimen: ?Bone Marrow ? 06/01/2021 10:28 AM [facility] PATH[facility] Final Diagnosis Bone marrow, flow cytometric immunophenotypic analysis: - No clonal B-cell or increased blast population seen. - See interpretation. 06/01/2021 10:28 AM [facility] PATH[facility] Flow Cytometry Interpretation The [...] the flow cytometry specimen is reviewed for aerospace quality engineer purposes. The bone marrow aspirate specimen shows no evidence of involvement by non-Hodgkin lymphoma or a high-grade myeloid neoplasm, although examination is limited by the aspiculate nature of the aspirate. Correlation with clinical findings, the bone marrow core biopsy (accession number TBD), and relevant cytogenetic/molecu lar studies is required. 06/01/2021 10:28 AM [facility] PATH[facility] Flow Cytometry Results Differential [...] ID # [id number] 06/01/2021 10:28 AM CDT [facility] PATH[facility] Number of markers 10 were performed. A-2 Flow CD10 A-3 Flow CD13 A-5 Flow CD20 A-1 Flow CD5 A-4 Flow CD19 A-6 Flow CD33 A-7 Flow CD34 A-8 Flow CD45 A-9 [place]+CD19+ A-10 Lambda+CD19+ 06/01/2021 10:28 AM T [facility] PATH[facility] Disclaimer Test performed at [facility], [address] [place] [address], [address]. *The established laboratory minimum viability is 70%. [...] PATHOLOGY LAB Embedded Images 10:28 AM CDT [facility] Pathology/Cytolo gy BONE MARROW SPECIMEN / Unknown 05/29/2021 10:14 AM CDT 05/29/2021 3:49 PM CDT Miguel A Carmichael MD LAB - PATHOLOGY/CYTO LOGY ORDERABLES [facility] [address] [place] [address] documented in this encounter Visit Diagnoses Diagnosis Decreased white blood cell count, unspecified documented in this encounter Care Teams Receiving Supervisor Relationship Specialty Start Date End Date Christiano Sandhu MD [address] [place] [address] PCP - General 05/29/21 documented as of this encounter
--- OUTSIDE RECORDS SUMMARY | 2024-11-03 17:28 | XMS_ITS | Referral Summary ---
Author Organization [facility] Address [address] [place] [address] Care Team Providers Care Collaborative Teacher Name Role Phone Christiano Sandhu MD Primary Care Provider [phone] Source Comments [facility],non-the rehabilitation institute Affiliates and Associated Physician Practices is amultiple site organization consisting of ambulatory clinics and hospital sitesin [place], [place], [place] and [place]. This disclosure is being madepursuant to the Care Everywhere program and may not contain all information available regarding this patient. Last updated 18.[facility] Social History Tobacco Use Types Packs/Day Years Used Date Smoking Tobacco: Never Assessed Sex and Gender Information Value Date Recorded Sex Assigned at Not on file Gender Identity Not on file Sexual Orientation Not on file Plan of Treatment Not on file Care Teams Collaborative Teacher Relationship Specialty Start Date End Date Christiano Sandhu MD [address] [place] [address] [facility] - General 05/29/21
--- OUTSIDE RECORDS SUMMARY | 2024-11-03 17:28 | XMS_ITS | Encounter Summary ---
Author Organization [facility] [facility] Address [address] [facility] [address] [place] [address] Phone Care Team Providers Care Bessemer Bottom Maker Name Role Phone Christiano Sandhu MD Primary Care Provider [phone] Encounter Details Date Type Department Care Team (Late st Contact Info) Description 04/08/2015 Orders Only [facility] Lucille, Pedro Grady Jr., MD [address] [facility] [id number] [place] [address] Social History Tobacco Use Types Packs/Day Years Used Date Smoking Tobacco: Never Assessed Sex and Gender Information Value Date Recorded Sex Assigned at Not on file 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
--- OUTSIDE RECORDS SUMMARY | 2024-11-03 17:28 | XMS_ITS | Encounter Summary ---
Author Organization [facility] [employer] [facility] Address [address] [place] [address] Phone Care Team Providers Care Photonic Laboratory Technician Name Role Phone Christiano Sandhu MD Primary Care Provider [phone] Encounter Details Date Type Department Care Team (Late st Contact Info) Description 11/18/2014 Orders Only [facility] CLINCONV ProviderKaylee MD [address] [place] [address] Social History Tobacco Use Types Packs/Day Years Used Date Smoking Tobacco: Never Assessed Sex and Gender Information Value Date Recorded Sex Assigned at Not on file 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
--- OUTSIDE RECORDS SUMMARY | 2024-11-03 17:28 | XMS_ITS | Clinical Summary ---
Author Organization [facility] [address] Address [address] [place] [address] Care Team Providers Care Legal Editor Name Role Phone Christiano Sandhu MD Primary Care Provider [phone] Allergies Active Allergy Reactions Criticality Noted Date [...] mg tablet 20 mg 07/08/2022 Active omega 6-fsn-qqb-fish oil 1,000 mg (120 mg-180 mg) capsule [...] (07/26/2022): Added automatically from request for surgery [id number] Change in bowel habits 07/26/2022 Overview (07/26/2022): Added automatically from request for surgery [id number] Nausea 07/26/2022 Overview (07/26/2022): Added automatically from request for surgery [id number] Automatic implantable cardiac defibrillator in s itu 03/11/2021 Overview (03/11/2021): Haload Dual ICD. Dx; HOCM, PAF. 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 Gender Identity Not on file Sexual Orientation Not on file Obstetrics History Last Filed Vital Signs Vital Sign Reading Time Taken Comments Blood Pressure 114/66 09/23/2022 12:00 PM FLIGHT LINE SERVICE ATTENDANT Pulse 60 09/23/2022 12:00 PM FLIGHT LINE SERVICE ATTENDANT Temperature 36.3 ??C (97.3 ??F) 09/23/2022 11:[address] Respiratory Rate 19 09/23/2022 12:00 PM FLIGHT LINE SERVICE ATTENDANT Oxygen Saturation 95% 09/23/2022 12:00 PM FLIGHT LINE SERVICE ATTENDANT Inhaled Oxygen Concentration - - Weight 108.9 kg (240 lb) 09/23/2022 9:30 AM FLIGHT LINE SERVICE ATTENDANT Height 182.9 cm (6') 09/23/2022 9:30 AM FLIGHT LINE SERVICE ATTENDANT Body Mass Index 32.55 09/23/2022 9:30 AM FLIGHT LINE SERVICE ATTENDANT Plan of Treatment Health Maintenance Due Date [...] Associated Diagnosis Comments COLONOSCOPY 09/23/2022 11:20 AM FLIGHT LINE SERVICE ATTENDANT from Last 3 Months or Most Recently Relevant to Health Maintenance Results * COLONOSCOPY (09/23/2022 11:20 AM FLIGHT LINE SERVICE ATTENDANT) Anatomical Region Laterality Modality Other Narrative Procedure Note Ellen Hayes MD - 09/23/2022 11:20 AM [facility] ENDOSCOPY LAB Patient Name: Carolyn Chang Procedure Date: 09/23/2022 11:20AM Date of : 1975 Admit Type: Outpatient Age: 47 Gender: Male Attending MD: Ellen Hayes M.D. Room: [facility] ENDOSCOPY ROOM 01 Note Status: Finalized [...] The scope was passed under direct vision.The [id number] was introduced through the anusand advanced to [...] your results within this timeframe, please call [phone] regarding your results. - Contact Information: During normal business hours - Please call theNurse Coordinator: [phone] After hours, evening, nights, weekends and holidays- Please call the hospital elevator operator freight at and ask for the GI fellow insurance salesperson. - . Attending Participation: I personally performed the entire procedure. Electronically Signed By: Ellen Hayes M.D. Ellen Hayes M.D. 09/23/2022 11:49:22 AM Number of Addenda: 0 Note Initiated On: 09/23/2022 11:20 AM Ellen Hayes MD ENDOSCOPY PROCEDURES Fin al Result from Last 3 Months or Most Recently Relevant to Health Maintenance Insurance MEDICARE [facility] MEDICARE [facility] MEDICARE Advance Directives For more information, please contact: [phone] * Full Code (Latest Code Status on File) Date Activated Date Inactivated Comments 09/23/2022 9:25 AM 09/23/2022 4:15 PM Care Teams Legal Editor Relationship Specialty Start Date End Date Christiano Sandhu MD PCP - General 05/06/10
--- OUTSIDE RECORDS SUMMARY | 2024-11-03 17:28 | XMS_ITS | Clinical Summary ---
Author Organization [facility] Address [address] [facility] [place] [address] Care Team Providers Care Political Organizer Name Role Phone Christiano Sandhu MD Primary Care Provider [phone] Allergies Active Allergy Reactions Criticality Noted Date Comments Sulfamethoxazole-Trimet hoprim Fever,Weakness High 06/25/2021 Low WBC Chills Fever Weakness Fatigue Medications apixaban (Eliquis) 5 mg tablet 01/22/2014 Active atorvastatin (LIPITOR) 20 mg tablet 06/01/2021 Active diltiaZEM (CARDIZEM CD) 360 mg Controlled Delivery 24 hour capsule 06/01/2021 Active furosemide (LASIX) 10 mg Tablet 01/22/2014 Active jozmo-9-ACZ-EPA-fi sh oil 1,000 mg Capsule 01/22/2014 Active [...] topic Insurance MEDICARE PART A AND B [facility] OPTIONS PPO [id number] Care Teams Political Organizer Relationship Specialty Start Date End Date Christiano Sandhu MD [address] [place] [address] PCP - General Family Practice 06/25/21
--- OUTSIDE RECORDS SUMMARY | 2024-11-03 17:28 | XMS_ITS | Encounter Summary ---
Author Organization [facility] [employer] [facility] [facility] Address [address] [place] [address] Phone Care Team Providers Care Forming Fixer Name Role Phone Christiano Sandhu MD Primary Care Provider [phone] Encounter Details Date Type Department Care Team (Late st Contact Info) Description 02/17/2015 Orders Only [facility] CAR CLINCONV ProviderKaylee MD [address] [place] [address] Social History Tobacco Use Types Packs/Day Years Used Date Smoking Tobacco: Never Assessed Sex and Gender Information Value Date Recorded Sex Assigned at Not on file Legal 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
[2024-11-03 17:51] VITALS: BP 127/83; PULSE 84; RESP 18; TEMP 36.8; O2SAT 96
== END 2024-11-03 17:55 | disposition home or self-care (01) ==
PROVIDERS: Emergency Provider Emergency Medicine; PCP Internal Medicine
DX: S76.011A Strain of muscle, fascia and tendon of right hip, initial encounter (principal); S63.601A Unspecified sprain of right thumb, initial encounter; I10 Essential (primary) hypertension; E78.5 Hyperlipidemia, unspecified; E11.9 Type 2 diabetes mellitus without complications; Z87.891 Personal history of nicotine dependence; Z79.01 Long term (current) use of anticoagulants; W00.0XXA Fall on same level due to ice and snow, initial encounter
CPT/HCPCS: 73110; 73130; 73502; 99284

== ENCOUNTER 2025-04-18 11:42 | Outpatient (CLI) | payer OTHER, MEDICARE, SELFPAY ==
--- OUTSIDE RECORDS SUMMARY | 2025-04-18 11:46 | XMS_ITS | Data Portability ---
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 He is under the care of a systems engineering manager has a pacemaker and a defibrillator. I [...] this plan. Amount of time 45 minutes [email or web address] Not available 10/31/2024 22:07:40 11/09/2024 11/09/2024 1. The strep kike t was negative. We discussed viral tonsillitis. Recommended use of warm salt water gargles and Tylenol as necessary. Typical resolution is within 5 to 7 days. We discussed worsening of symptoms and the need to follow-up immediately if that occurs. 2. We discussed the bruising and hematoma. I recommended heat application for 20 minutes 3-4 times daily. This can expedite healing. If he has any concerns or questions he should make sure to contact us. Patient verbalizes understanding and agreement with the treatment plan. Patient will continue to follow-up for acute health issues and routine medication checks. I personally spent a total of 20 minutes on the patient on this date of service including both xekw-qp-bxgf and xlf-gdcb-ht-face time excluding any separately reportable services. [email or web address] Not available 11/10/2024 10:54:16 02/11/2025 02/11/2025 1. He has an anoxic brain injury which keeps him from focusing well. He is quite depressed by this and feels that it affects his energy level. I will talk with his systems engineering manager about the possibility of putting him on Ritalin to see if this will be helpful. We could also consider an antidepressant. Once I talk to the systems engineering manager I will make further recommendations. 2. Type 2 diabetes. Will check a hemoglobin A1c today. He does check his blood sugars periodically. 3. Hocm. He has had a septoplasty. He is on medication for blood pressure. He is also on Eliquis for this. 4. Congestive heart failure. He denies any significant shortness of breath or edema. he sees a systems engineering manager for this. I will see him back in 6 months at which time he will be due for full laboratory tests. I will contact him once I have more information. He indicates his understanding and agrees with this plan. Time 30 minutes [email or web address] Not available 02/11/2025 14:11:46 04/05/2025 04/05/2025 1. ADD. This is a reaction to hypoxic event he had due to cardiomyopathy. He is doing okay on the Strattera and feels that is helping. Will continue this medicine. 2. Hypertension. Add lisinopril 5 mg to his other medicines. He will check his blood pressure at home and let me know how it goes. My goal is to get him under 130/85. 3. He wonders about tick bite problems and and Lyme's titer was obtained. At the time of this dictation it was negative. He will be notified of this result. 4. Injury to the left knee with loss of stability pain and swelling. This is most likely a tendon or cartilage damage. He would like to go forward with an MRI. He does not think he would be able to participate in physical therapy because of the pain. It is already been over 2 weeks since this occurred. We will see if we can get it approved through his insurance. He agrees with this plan. He will be notified of test results. Total amount of time 30 minutes [email or web address] Not available 04/08/2025 23:12:55 Plan of Treatment Reminders Order Date Submit Date Provider Last Modified By Organization Details Last Modified Time Details Appointments [facility] Patient 30.EST 2024 11:00A M Dr. Ellen Underwood Not available Not available Not available [facility] Patient 30.EST 2024 08:15A M Dr. Ellen Underwood Not available Not available Not available Lab lyme disease igg+igm Ab, serum 2024 025 [facility], [address] [place] [address], [id number], 04/08/2025 14:11:52 hemoglob in A1c + average glucose, QN, blood 2024 025 [facility], [address] [place] [address], [id number], 02/11/2025 19:53:42 streptoc occus group A DNA 2024 025 [facility], [address] [place] [address], [id number], 11/09/2024 17:28:59 Referral None recorded . Procedures None recorded . Surgeries None recorded . Imaging None recorded . Medication Orders lisinopr il 5 mg tablet 2024 025 [id number], [address] [place], [place], [id number], 04/05/2025 10:44:46 Patient TargetsNo targets recorded. Patient InstructionsNo instructions recorded. Reason for Referral None Reported. Results Created Date Observation Date Name Description Value Unit Range Abnormal Flag Note LastModifiedBy Organization Detail LastModifiedTime 11/09/19 25 11/09/2024 strep tococ cus group A DNA group A strep DNA probe NEGATI VE negati ve Speci men negat senait for Strep tococ cus pyoge treasure (Grou p A Strep ) by DNA ampli ficat ion. Not Available [facility] [address] [place] [address], [id number], 11/09/2024 17:28:59 02/12/20 25 02/11/2025 hemog lobin A1c + avera ge gluco se, QN, blood hemoglobin A1C Not Available [facility] [address] [place] [address], [id number], 02/11/2025 19:53:42 02/12/20 25 02/11/2025 hemog lobin A1c + avera ge gluco se, QN, blood HGB A1C 6.8 %_A1C 4.3 - 5.6 high Not Available [facility] [address] [place] [address], [id number], 02/11/2025 19:53:42 02/12/20 25 02/11/2025 hemog lobin A1c + avera ge gluco se, QN, blood estimated average glucose 148 mg/dL Not Available [facility] [address] [place] [address], [id number], 02/11/2025 19:53:42 04/05/20 25 04/08/2025 lyme disea se igg+i gm Ab, serum lyme disease Ab NEGATI VE Lyme antib odies not detec helena. Refle x testi ng is not indic ated. No labor atory evide nce of infec tion with B. burgd orfer i (Lyme disea se). Negat senait resul ts may occur in patie nts recen tly infec helena (less than or equal to 14 days) with B. burgd orfer i. If recen t infec tion is suspe cted, repea t testi ng on a new sampl e colle cted in 7 to 14 days is ruperto waters Not Available [facility] [address] [place] [address], [place], [address], 04/08/2025 14:11:52 03/01/2011/03/2024 XR, wrist , 3 or more view No observ ation record ed. [email or web address] Not Available 2024 16:28:16 03/01/2011/03/2024 XR, hip + pelvi s, unila teral , 2 or 3 view No observ ation record ed. [email or web address] Not Available 2024 08:09:05 03/01/2011/03/2024 XR, hand, 3 or more view No observ ation record ed. [email or web address] Not Available 2024 08:09:56 Result Notes None recorded. Problems Name Problem SNOMED Code Status Onset Date Resolution Date Notes Provider Name and Address Organization Details Recorded Time Chronic diastolic heart failure 209436854 Active 2024 Ellen Underwood MD [address] [place] [address], [address], [facility] 5 21:45:33 Hypertrop hic obstructi ve cardiomyo maria luisa 26581448 Active 2024 Ellen Underwood MD [address] [place] [address], [address], [facility] 5 21:45:42 Type 2 diabetes mellitus 47877537 Active 2024 Melissa Timmons [facility], [facility] 5 10:41:54 Pain of joint 71746451 Active 2024 Ellen Underwood MD [address] [place] [address], [address], [facility] 5 21:46:29 Erectile dysfuncti on 315726063 Active 2024 Ellen Underwood MD [address] [place] [address], [address], [facility] 5 21:46:54 Diabetic periphera l neuropath y 893417934 Active 2024 Ellen Underwood MD [facility] [place] [address], [address], [facility] 5 21:47:04 Reactive depressio n (situatio nal) 29061665 Active 2024 Ellen Underwood MD [facility] [address], [address], [facility] 5 21:47:20 Primary insomnia 8782315 Active 2024 Ellen Underwood MD [address] [place] [address], [address], [facility] 5 21:47:34 Obstructi ve sleep apnea syndrome 31802050 Active 2024 Ellen Underwood MD [facility] [address], [address], [facility] 5 21:47:41 Pyrexia of unknown origin 4912632 Active 2024 Ellen Underwood MD [facility] [place] [address], [address], [facility] 5 21:48:06 Paroxysma l atrial fibrillat ion 094588350 Active 2024 Ellen Underwood MD [address] [place] [address], [address], [facility] 5 21:48:47 Long-term current use of anticoagu lant 245550496 Active 2024 Ellen Underwood MD [address] [place] [address], [address], [facility] 5 21:48:54 Essential hypertens ion 42834448 Active 2024 Ellen Underwood MD [address] [place] [address], [address], [facility] 5 21:50:50 Mixed hyperlipi demia 025397352 Active 2024 Ellen Underwood MD [address] [place] [address], [address], [facility] 5 21:51:01 Anoxic encephalo maria luisa 085748626 Active 2024 Ellen Underwood MD [address] [place] [address], [address], [facility] 5 22:03:39 Hematoma of right lower limb Active 2024 Misael Sotelo PA-C [address] [place] [address], [address], [facility] 5 17:16:49 Acute conjuncti vitis of bilateral eyes 972984998166 104 Active 2024 Misael Sotelo PA-C [address] [place] [address], [address], [facility] 5 17:06:00 Adult attention deficit hyperacti vity disorder 518839582 Active 2024 Ellen Underwood MD [address] [place] [address], [address], [facility] 5 18:25:03 Tick bite 39014150 Active 2024 Ellen Underwood MD [address] [place] [address], [address], [facility] 5 10:50:05 Injury of left knee 321152070837 106 Active 2024 [facility] 15:54:13 Cardiac pacemaker in situ 400092698 Active 2024 [facility] 11:17:40 Problem Notes None recorded. Procedures Surgical History Date Name Laterality Status Provider Name and Address Organization Details Recorded Time 023 decompression of median nerve completed Ellen Underwood MD [address] [place] [address], [address], [facility] 10/31/2024 21:52:40 022 colonoscopy completed Ellen Underwood MD [address] [place] [address], [address], [facility] 10/31/2024 21:54:30 015 open myomectomy completed Ellen Underwood MD [address] [place] [address], [address], [facility] 10/31/2024 21:52:16 decompression of ulnar nerve at elbow completed Ellen Underwood MD [address] [place] [address], [address], [facility] 10/31/2024 21:52:49 procedure on wrist completed Lorelei Underwood MD [address] [place] [address], [address], [facility] 10/31/2024 21:53:06 implantation of cardiac resynchronization defibrillator system completed Ellen Underwood MD [address] [place] [address], [address], [facility] 10/31/2024 21:53:18 Colonoscopy with biopsy completed Not Available Health Note 02/10/2025 21:44:41 Insert heart pm atrial completed Not Available Health Note 02/10/2025 21:44:41 Imaging Results None recorded. Procedure Notes None recorded. Medical Equipment None Reported. Allergies Allergen ID Allergen Name Allergen Category Reaction Reaction Severity Criticality Documentation Date Start Date Code Code System Note Provider Name and Address Organization Details Recorded Time 5950884 Substance with sulfonami de structure and antibacte rial mechanism of action (substanc e) medicatio n anaphylax is severe high 10/31/2024 27159 8003 SNOMED Sarah Whalen [facility] 17:25:52 Medications Name Sig Start Date Stop Date [...] mg capsule TAKE 1 CAPSULE BY MOUTH DAILY AT BEDTIME active Not Available Not Available No t Available amlodipine 10 mg tablet TAKE 1 TABLET BY MOUTH DAILY active Not Available Not Available No t Available metformin 1,000 mg tablet TAKE 1 TABLET BY MOUTH TWICE DAILY 11/14 completed Not Available Not Available Not Available tobramycin 0.3 % eye drops INSTILL 1 DROP INTO AFFECTED EYE(S) BY OPHTHALMI C ROUTE EVERY 4 HOURS 02/11 completed Not Available Not Available Not Available lisinopril 5 mg tablet Take 1 tablet every day by oral route for 30 days. 2024 active Not Available Not Available Not Avai lable metformin ER 500 mg tablet,exte nded release 24 hr TAKE 2 TABLETS BY MOUTH TWICE DAILY active Not Available Not Available No t Available finasteride 5 mg tablet TAKE 1 TABLET BY MOUTH DAILY active Not Available Not Available No t Available atomoxetine 40 mg capsule TAKE 1 CAPSULE BY MOUTH EVERY DAY active Not Available Not Available No t Available Eliquis 5 mg tablet Take 1 tablet twice a day by oral route. active Not Available Not Available No t Available Farxiga 10 mg tablet TAKE 1 TABLET BY MOUTH DAILY 02/11 completed Not Available Not Available Not Available Farxiga 5 mg tablet TAKE 1 [...] t Available Vitals Date Recorded Body height Body mass index (BMI) Body weight Body temperature Heart rate Oxygen saturation Oxygen saturation in Arterial blood by Pulse oximetry Systolic And Diastolic Provider Name and Address Organization Details Last Updated DateTime 5 180.34 cm 31.2 kg/m2 827150. 69 g 97.1 [degF] 64 /min 95 % 95 % 146/82 mm[Hg] Sarah Koby [facility] 5 17:25:05 Date Recorded Body height Body mass index (BMI) Body weight Body temperature Heart rate Respiratory rate Oxygen saturation Oxygen saturation in Arterial blood by Pulse oximetry Systolic And Diastolic Provider Name and Address Organization Details Last Updated DateTime 5 180.34 cm 31 kg/m2 929948. 94 g 98.1 [degF] 81 /min 20 /min 95 % 95 % 146/74 mm[Hg] Soraya Nava [facility] 5 16:58:50 Date Recorded Body height Body mass index (BMI) Body weight Body temperature Heart rate Oxygen saturation Oxygen saturation in Arterial blood by Pulse oximetry Systolic And Diastolic Provider Name and Address Organization Details Last Updated DateTime 5 180.34 cm 32.4 kg/m2 133026. 15 g 97.2 [degF] 65 /min 99 % 99 % 140/86 mm[Hg] Yulisa Rae [facility] 5 09:48:56 Date Recorded Body height Body mass index (BMI) Body weight Body temperature Heart rate Oxygen saturation Oxygen saturation in Arterial blood by Pulse oximetry Systolic And Diastolic Provider Name and Address Organization Details Last Updated DateTime 5 180.34 cm 31.8 kg/m2 616721. 34 g 97.5 [degF] 72 /min 97 % 97 % 146/92 mm[Hg] Funmilayo Woods [facility] 5 10:07:35 Social History Question Answer Notes LastModified by Organizat ion Details LastModified Time Tobacco Smoking Status Former Smoker Not Available Health Note 02/10/2025 21:44:41 Do You Have An Advance Directive? No [email or web address] Information not available 02/10/2025 What Is Your Level Of Caffeine Consumption? Moderate [email or web address] Information not available 02/10/2025 How Many Times Per Week Do You Exercise? 1-2 Times Per Week [email or web address] Information not available 02/10/2025 When Did You Quit Smoking? 11-15yearssin celastcigaret te [email or web address] Information not available 02/10/2025 How Many Packs Per Day (PPD)? 1ppd Information not available 10/31/2024 How Long Have You Smoked? 15yr Information not available 10/31/2024 When Did You Quit Smoking? 2010 Information not available 10/31/2024 What Was The Date Of Your Most Recent Tobacco Screening? 02/11/2025 [email or web address] Information not available 02/10/2025 What Is Your Relationship Status? [email or web address] Information not available 02/10/2025 Sex: Unknown Functional Status Question Answer Note LastModified by Organizat ion Details LastModified Time How many times per week do you consume alcohol? Less than 1 time per week [email or web address] Information not available 02/10/2025 Do you use any illicit or recreational drugs? No [email or web address] Information not available 02/10/2025 Do you or have you ever used any other forms of tobacco or nicotine? Yes [email or web address] Information not available 02/10/2025 What is your level of alcohol consumption? Occasional [email or web address] Information not available 02/10/2025 Do you or have you ever used smokeless tobacco? Former smokeless tobacco user [email or web address] Information not available 02/10/2025 Are you currently employed? 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 Former user of electronic cigarettes [email or web address] Information not available 02/10/2025 What is your exercise level? Occasional [email or web address] Information not available 02/10/2025 Mental Status None recorded. Family History Relationship Description Onset Age of this Age Resolved Age Notes LastModified by Organization Details LastModified Time Paternal Uncle Hypertrophic obstructive cardiomyopat hy [email or web address] Not available 2024 21:49:34 Paternal Uncle Malignant neoplasm of lung [email or web address] Not available 2024 21:49:53 Paternal Aunt Malignant neoplasm of lung [email or web address] Not available 2024 21:49:53 Paternal Grandmother Type 2 diabetes mellitus Not available 2024 21:50:09 Paternal Grandmother Diabetes mellitus [email or web address] Not available 2024 21:44:40 Paternal Grandmother Heart disease [email or web address] Not available 2024 21:44:40 Paternal Grandmother Hypercholest erolemia [email or web address] Not available 2024 21:44:40 Father Cerebrovascu lar accident Not available 21:50:21 Father Hypertensive disorder Not available 2024 21:50:30 Father Heart disease [email or web address] Not available 2024 21:44:40 Father Hypercholest erolemia [email or web address] Not available 2024 21:44:40 Paternal Grandfather Family history of malignant neoplasm [email or web address] Not available 2024 21:44:40 Maternal Grandmother Heart disease [email or web address] Not available 2024 21:44:40 Maternal Grandmother Hypertensive disorder [email or web address] Not available 2024 21:44:40 Maternal Grandmother Hypercholest erolemia [email or web address] Not available 2024 21:44:40 Notes:Maternal Grandfather h as parkinsons Medical History Condition Response Diabetes Y Anxiety Disorder Y Bleeding Disorder Y Attention-deficit Hyperactivity Disorder N High Blood Pressure Y Arthritis Y Hyperlipidemia Y Cancer N Stroke N Thyroid Problems N Asthma N Depression Y COPD N Anemia N Seizures N Heart Disease Y Fibromyalgia N Osteoporosis N Kidney Disease N Immunizations Vaccine Type Date Status Note Provider Nam e and Address Organization Details Recorded Time COVID-19, mRNA, LNP-S, PF, 100 mcg/0.5mL dose or 50 mcg/0.25mL dose 02/07/2021 completed Sarah Whalen [facility] 10/31/2024 17:25:10 COVID-19, mRNA, LNP-S, PF, 100 mcg/0.5mL dose or 50 mcg/0.25mL dose 03/07/2021 completed Sarah Whalen null, [facility] 10/31/2024 17:25:10 Tdap 03/15/2022 completed Sarah Whalen null, [facility] 10/31/2024 17:25:10 zoster recombinant 12/12/2024 completed Funmilayo Woods null, [facility] 04/05/2025 10:07:50 Past Encounters Encounter ID Performer Location Encounter Start Date Encounter Closed Date Diagnosis/Indication Diagnosis SNOMED-CT Code Diagnosis ICD10 Code Diagnosis Note [id number] Ellen Underwood MD [facility] ([place]) [place] [address] 10/31/2024 16:40:59 11/01/2024 10:00:56 Diabetic peripheral neuropathy 950747637 E11.42 Essential hypertension 31976750 I10 Hypertroph ic obstructive cardiomyopathy 55288560 I42.1 Reactive d epression (situational) 60490371 F32.9 Type 2 ruben betes mellitus 73014074 E11.8 Anoxic encephalopathy 38 2321794 G93.1 [id number] Cornelio Sotelo PA-C [facility] ([place]) [place] [address] 11/09/2024 16:36:46 11/12/2024 11:14:38 Tonsillitis 74791676 J03.90 Hematoma o f right lower limb 5840253806 7100 S80.11XA [id number] Ellen Underwood MD [facility] ([place]) [place] [address] 02/11/2025 09:41:42 02/11/2025 10:23:21 Hypertrophic obstructive cardiomyopathy 18992890 I42.1 Type 2 ruben betes mellitus 22816268 E11.8 E11.69 Anoxic encephalopathy 38 5934316 G93.1 Chronic di astolic heart failure 573566875 I50.32 Reactive d epression (situational) 96268888 F32.9 [id number] MD [facility] ([place]) [address] [place] [address] 04/05/2025 09:55:23 04/05/2025 11:37:08 Adult attention deficit hyperactivity disorder 761591088 F98.8 Essential hypertension 96273095 I10 Tick bite 64739184 S50.8 69S W57.XXXS Health Concerns Section Related Observation LastModified by Organization Detai ls LastModified Time None Recorded Concern Status LastModified by Organization Details LastModified Time None Recorded Advance Directives Directive N: Payers Insurance Date Sequence Insurance Name Policy Number Policy Rudd Covered Member ID Rudd Member ID Guarantor Name 04/10/2025 [place] A - [facility] (MEDICARE) Porfirio Judie Chang [id number] Porfirio Charlene 04/10/2025 1 [facility] [id number] Ritu Chang [id number] Porfirio Chang 03/31/2025 2 [place] Porfirio Judie Chang [id number] Porfirio Chang Notes Date Note Type Note Provider Name and Address Organization Details Recorded Time 5 text/html Porfirio is a 49-year-old gentleman 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 He had been working at [employer]. He believes that his paternal uncle and [...] was 7.1. He recently got a new systems engineering manager. Dr Hobbs is from [place] and sees Porfirio at [facility] decreased his pacemaker rate to 60 and [...] when he was younger. 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 He left the job that he had until he was disabled at 2014. He finds that he can But not follow verbal instructions on how to get someplace. He paid any bills late but he has taken bills to the wrong bank to pay. He is . He has 2 children. His son just got out of the and his daughter is completing nurse tobacco stemmer's school and will be working in [employer] in the near future. His works as a recovery room nurse. Ellen Underwood MD [address] [facility], [place], [address], [facility] 10/31/2024 22:08:05 5 text/html The patient comes in today for follow-up ER visit at [facility]. He fell landing on his right hip on the . He had severe pain in the hip and went to [facility]. He had large swelling and bruising by the time he got to the hospital. They did x-rays which did not show fracture according to the patient. Bruising has continued to spread to the buttocks area and down past the knee. The enlarged and swollen area has reduced in size. He is not having problems walking. He is on Eliquis therapy. He also complains of sore throat. It was pretty severe when he woke up this morning but improved throughout the day today. He has not had runny nose, ear pain, cough, fevers or chills. He has not been exposed to any known illnesses. Misael Sotelo PA-C [address] [place] [address], [address], [facility] 11/14/2024 10:46:49 5 text/html Porfirio Rucker a 49 year oldmalepresenting for care. He is here for 6-month follow-up. He has hokum and suffered a cardiac event with anoxic brain injury. He no longer can work. He says he cannot remember to take his medicine all the time. He is easily distracted. He is somewhat tearful and depressed talking about his limitations when he knows in the past he was able to do much more. He has type 2 diabetes. He is on metformin. He has been not been checking his blood sugars on a regular basis. When he last checked it it was elevated. He has poor sleep quality. He has to get up in the melanite to go and have a bowel movement. He does not do any regular exercise. He says he cannot say that he is following a healthy diet. He sees Dr. Hobbs for cardiology. I told him I would talk to this systems engineering manager to find out if we could use a mental stimulant for him. I am not sure if this would be safe with his heart problems. We talked about his family. he has 2 children. His son is finished college and is working towards becoming a loin trimmer. His daughter will be working as a nurse tobacco stemmer. He sees the eye doctor and dentist on a regular basis. Ellen Underwood MD [address] [place] [address], [phone], [facility] 02/11/2025 14:13:24 5 text/html Porfirio Rucker a 50 year oldmalepresenting for care. He is a 50-year-old gentleman here today for follow-up on medication management. He has ADD and we started him on Strattera. This is a nonstimulant medication. He has had cardiomyopathy and other heart problems so I did not want to give him something that could cause tachycardia or hypertension. He feels that the medicine has been helping. He does not feel that he needs to go higher on it. He denies any chest pain or heart palpitations with it. He has been taking it for about 2 weeks. He thinks he is thinking more clearly. He scores a 7 on his PHQ 2 and 9. He had a cardiac event to due to hypertrophic cardiomyopathy. This has caused a change in his cognition and concentration. He does follow with cardiology for this. He feels th At it is getting under better control. He has type 2 diabetes. His last hemoglobin A1c was under 7. He does check his blood sugars sporadically. He continues on metformin. He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
--- OUTSIDE RECORDS SUMMARY | 2025-04-18 11:46 | XMS_ITS | Encounter Summary ---
Author Organization [facility] Address [address] [place] [address] Phone Care Team Providers Care Administrative Services Officer Name Role Phone Christiano Sandhu MD Primary Care Provider [phone] Encounter Details Date Type Department Care Team (Late st Contact Info) Description 03/17/2015 Orders Only [facility] ProviderKaylee MD [address] [place] [address] Social History Tobacco Use Types Packs/Day Years Used Date Smoking Tobacco: Never Assessed Sex and Gender Information Value Date Recorded Sex Assigned at Not on file Legal Sex Male 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
--- OUTSIDE RECORDS SUMMARY | 2025-04-18 11:46 | XMS_ITS | Encounter Summary ---
Author Organization [facility] Address [address] [place] [address] Phone Care Team Providers Care Capping Machine Operator Name Role Phone Christiano Sandhu MD Primary Care Provider Encounter Details Date Type Department Care Team (Late st Contact Info) Description 06/17/2015 Orders Only [facility]IN[facility] ProviderKaylee MD [address] [place] [address] Social History Tobacco Use Types Packs/Day Years Used Date Smoking Tobacco: Never Assessed Sex and Gender Information Value Date Recorded Sex Assigned at Not on file 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
--- OUTSIDE RECORDS SUMMARY | 2025-04-18 11:46 | XMS_ITS | Encounter Summary ---
Author Organization [facility] Address [address] [place] [address] Phone Care Team Providers Care Fixed Wing Aircraft Flight Mechanic Name Role Phone Christiano Sandhu MD Primary Care Provider [phone] Encounter Details Date Type Department Care Team (Late st Contact Info) Description 02/17/2015 Orders Only [facility]IN[facility] Provider, MD Kaylee [address] [place] [address] Social History Tobacco Use Types Packs/Day Years Used Date Smoking Tobacco: Never Assessed Sex and Gender Information Value Date Recorded Sex Assigned at Not on file 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
--- OUTSIDE RECORDS SUMMARY | 2025-04-18 11:46 | XMS_ITS | Referral Summary ---
Author Organization [facility] [address] Address [address] [place] [address] Care Team Providers Care Custom Framing Specialist Name Role Phone Christiano Sandhu MD Primary Care Provider + [phone] Allergies Active Allergy Reactions Criticality Noted Date [...] mg tablet 20 mg 07/08/2022 Active omega 5-lpu-cak-fish oil 1,000 mg (120 mg-180 mg) capsule [...] (07/26/2022): Added automatically from request for surgery [id number] Change in bowel habits 07/26/2022 Overview (07/26/2022): Added automatically from request for surgery [id number] Nausea 07/26/2022 Overview (07/26/2022): Added automatically from request for surgery [id number] Automatic implantable cardiac defibrillator in s itu 03/11/2021 Overview (03/11/2021): TLM Com Dual ICD. Dx; HOCM, PAF. Gen change 03/04/2021-Uppstrom, chronic leads 11/04/2014. Patient follows with Dr Hobbs. Obesity with body mass index 30 or greater 09/21 Pain in wrist 10/30/2015 Postoperative pain 03/13/2015 Hypertension 01/02/2015 Paroxysmal atrial fibrillation 11/13/2014 Sick sinus syndrome 11/13/2014 Paroxysmal ventricular tachycardia 05/14/2014 Fatigue 05/09/2014 Palpitations 01/31/2014 Obstructive sleep apnea syndrome 12/20/2013 Abnormal findings on diagnos tic imaging of heart and coronary circulation 12/20/2013 Dizziness 12/20/2013 Shortness of breath 12/20/2013 Psychophysiological insomnia 12/13/2013 Immunizations Immunization Administration Dates Next Due Influenza, Trivalent, Preservative Free, Intramu scular 07/17/2015 Social History Tobacco Use Types Packs/Day Years Used Date Smoking Tobacco: Former Cigarettes 1 1 - 1999 Tobacco Cessation:Counseling Given: Not [...] on file Legal Sex Male 1:25 AM LEAF SIZE PICKER Gender Identity Not on file Sexual Orientation Not on file Last Filed Vital Signs Vital Sign Reading Time Taken Comments Blood Pressure 114/66 09/23/2022 12:00 PM LEAF SIZE PICKER Pulse 60 09/23/2022 12:00 PM LEAF SIZE PICKER Temperature 36.3 C (97.3 F) 09/23/2022 11:45 AM LEAF SIZE PICKER Respiratory Rate 19 09/23/2022 12:00 PM LEAF SIZE PICKER Oxygen Saturation 95% 09/23/2022 12:00 PM LEAF SIZE PICKER Inhaled Oxygen Concentration - - Weight 108.9 kg (240 lb) 09/23/2022 9:30 AM LEAF SIZE PICKER Height 182.9 cm (6') 09/23/2022 9:30 AM LEAF SIZE PICKER Body Mass Index 32.55 09/23/2022 9:30 AM LEAF SIZE PICKER Plan of Treatment Not on file Procedures Procedure Name Priority Date/Time Associated Diagnosis Comments COLONOSCOPY 09/23/2022 11:20 AM LEAF SIZE PICKER from Last 3 Months or Most Recently Relevant to Health Maintenance Results * COLONOSCOPY (09/23/2022 11:20 AM LEAF SIZE PICKER) Anatomical Region Laterality Modality Other Narrative Procedure Note Ellen Hayes MD - 09/23/2022 11:20 AM CST ENDOSCOPY LAB Patient Name: Carolyn Chang Procedure Date: 09/23/2022 11:20AM Date of : 1975 Admit Type: Outpatient Age: 47 Gender: Male Attending MD: Ellen Hayes M.D. Room: [facility] ENDOSCOPY ROOM 01 Note Status: Finalized [...] The scope was passed under direct vision.The [id number] was introduced through the anusand advanced to [...] your results within this timeframe, please call [phone] regarding your results. - Contact Information: During normal business hours - Please call theNurse Coordinator: [phone] After hours, evening, nights, weekends and holidays- Please call the hospital offset machine operator at and ask for the GI fellow director of online merchandising. - . Attending Participation: I personally performed the entire procedure. Electronically Signed By: Ellen Hayes M.D. Ellen Hayes M.D. 09/23/2022 11:49:22 AM Number of Addenda: 0 Note Initiated On: 09/23/2022 11:20 AM Ellen Hayes MD ENDOSCOPY PROCEDURES Fin al Result from Last 3 Months or Most Recently Relevant to Health Maintenance Insurance [facility] MEDICARE [facility] MEDICARE R [facility] MEDICARE Advance Directives For more information, please contact: [phone] * Full Code (Latest Code Status on File) Date Activated Date Inactivated Comments 09/23/2022 9:25 AM 09/23/2022 4:15 PM Care Teams Custom Framing Specialist Relationship Specialty Start Date End Date Christiano Sandhu MD PCP - General 05/06/10
--- OUTSIDE RECORDS SUMMARY | 2025-04-18 11:46 | XMS_ITS | Clinical Summary ---
Author Organization [facility] Address [address] [place] [address] Care Team Providers Care Media Technician Name Role Phone Christiano Sandhu MD Primary Care Provider Source Comments [facility],non-owned Affiliates and Associated Physician Practices is amultiple site organization consisting of ambulatory clinics and hospital sitesin [place], [place], [place] and [place]. This disclosure is being madepursuant to the Care Everywhere program and may not contain all information available regarding this patient. Last updated 18.[facility] [employer] Social History Tobacco Use Types Packs/Day Years Used Date Smoking Tobacco: Never Assessed Sex and Gender Information Value Date Recorded Sex Assigned at Not on file Legal Sex Male 3:46 PM CDT Gender Identity Not on file [...] SCREENING 1975 LIPID TESTING 1975 MEDICARE AWV 12 MONTHS 1975 HIV SCREENING 1988 HEPATITIS C SCREENING 03/24/1991 DTAP/TDAP/TD VACCINES (1 - Tdap) 1992 HEPATITIS B VACCINE (1 of 3 - 19+ 3-dose series) 1992 PNEUMOCOCCAL VACCINE 50+ (1 of 1 - PCV) 2023 ZOSTER VACCINE (1 of 2) 2023 COVID-19 VACCINE (1 - 2023-2 5 season) 2024 DEPRESSION SCREENING 10/10/2024 INFLUENZA VACCINE (#1) 2025 HIB VACCINE Aged Out No longer eligi ble based on patient's age to complete this topic HPV VACCINE Aged Out No longer eligi ble based on patient's age to complete this topic MENINGOCOCCAL (Group B) VACC INE SHARED DECISION-MAKING Aged Out No longer eligibl e based on patient's age to complete this topic MENINGOCOCCAL GROUPS A/C/Y/W VACCINE Aged Out No longer eligible b ased on patient's age to complete this topic Insurance [facility] MEDICARE [facility] Care Teams Media Technician Relationship Specialty Start Date End Date Christiano Sandhu MD [address] [place] [address] PCP - General 05/29/21
--- OUTSIDE RECORDS SUMMARY | 2025-04-18 11:46 | XMS_ITS | Clinical Summary ---
Author Organization [facility] Address [address] [place] [address] Care Team Providers Care Clinical Data Research Name Role Phone Christiano Sandhu MD Primary Care Provider [phone] Allergies Active Allergy Reactions Criticality Noted Date Comments Sulfamethoxazole-Trimet hoprim Fever,Weakness High 06/25/2021 Low WBC Chills Fever Weakness Fatigue Medications apixaban (Eliquis) 5 mg tablet 01/22/2014 Active atorvastatin (LIPITOR) 20 mg tablet 06/01/2021 Active diltiaZEM (CARDIZEM CD) 360 mg Controlled Delivery 24 hour capsule 06/01/2021 Active furosemide (LASIX) 10 mg Tablet 01/22/2014 Active wjrmg-9-GIN-EPA-fi sh oil 1,000 mg Capsule 01/22/2014 Active [...] 70 06/25/2021 3:12 PM CDT Temperature 36.9 C (98.5 F) 06/25/2021 3:12 PM CDT Respiratory Rate - - Oxygen Saturation 97% [...] (1 of 3 - 19+ 3-dose series) 03/10 COLORECTAL SCREENING 2018 Colorectal Cancer Screening 2018 FIT-DNA Q 3 years 2018 FIT/FOBT Q 1 year 2018 Flex Sig/CT Colonography Q 5 years 2018 ZOSTER VACCINE (1 of 2) 2023 INFLUENZA VACCINE (#1) 2025 07/17/2015 Insurance MEDICARE PART A AND B [facility] [employer] PPO [id number] Care Teams Clinical Data Research Relationship Specialty Start Date End Date Christiano Sandhu MD [address] [place] [address] PCP - General Family Practice 06/25/21
--- OUTSIDE RECORDS SUMMARY | 2025-04-18 11:46 | XMS_ITS | Clinical Summary ---
Author Organization [facility] [address] Address [address] [place] [address] Care Team Providers Care Plant Supervisor Name Role Phone Christiano Sandhu MD Primary Care Provider + [phone] Allergies Active Allergy Reactions Criticality Noted Date [...] mg tablet 20 mg 07/08/2022 Active omega 6-gdt-kmz-fish oil 1,000 mg (120 mg-180 mg) capsule [...] (07/26/2022): Added automatically from request for surgery [id number] Change in bowel habits 07/26/2022 Overview (07/26/2022): Added automatically from request for surgery [id number] Nausea 07/26/2022 Overview (07/26/2022): Added automatically from request for surgery [id number] Automatic implantable cardiac defibrillator in s itu 03/11/2021 Overview (03/11/2021): SMS Assist Dual ICD. Dx; HOCM, PAF. Gen change [...] myectomy(Cardiac) CARDIAC DEFIBRILLATOR PLACEMENT 10/10/2014 - 10/09/2015 Relaborateentifi-last device check 02/2022-media section Medical History Medical History Date Comments Personal history of other di seases of the circulatory system History of cardiac murmur - (Added by TW Conv) Cardiac arrhythmia Non-sustained V-tach, NSVT/Holter 2013 Arthritis DALIA (obstructive sleep apnea) Depression Anxiety disorder Hypertrophic cardiomyopathy (HCC) Prostatitis Pancytopenia (HCC) neg. bone mar [...] on file Legal Sex Male 1:25 AM BUSINESS RELATIONS MANAGER Gender Identity Not on file Sexual Orientation Not on file Obstetrics History Last Filed Vital Signs Vital Sign Reading Time Taken Comments Blood Pressure 114/66 09/23/2022 12:00 PM BUSINESS RELATIONS MANAGER Pulse 60 09/23/2022 12:00 PM BUSINESS RELATIONS MANAGER Temperature 36.3 C (97.3 F) 09/23/2022 11:45 AM BUSINESS RELATIONS MANAGER Respiratory Rate 19 09/23/2022 12:00 PM BUSINESS RELATIONS MANAGER Oxygen Saturation 95% 09/23/2022 12:00 PM BUSINESS RELATIONS MANAGER Inhaled Oxygen Concentration - - Weight 108.9 kg (240 lb) 09/23/2022 9:30 AM BUSINESS RELATIONS MANAGER Height 182.9 cm (6') 09/23/2022 9:30 AM BUSINESS RELATIONS MANAGER Body Mass Index 32.55 09/23/2022 9:30 AM BUSINESS RELATIONS MANAGER Plan of Treatment Health Maintenance Due Date Last Done Comments Depression Screening 1975 Hepatitis C Screening 1975 Prostate Cancer Screening-PSA 1973 DTaP/Tdap/Td Vaccine (1 - Tdap) 1984 Hepatitis B Screening 1991 Regular Well Visit/Exam 18-64 1991 Zoster Vaccine (1 of 2) 2023 Influenza Vaccine (#1) 2025 07/17/2015 Colon Cancer Screening-Colonoscopy 09/23/20322021 Pneumococcal vaccine <65 Aged Out No longer eligible based on patient's age to complete this topic Procedures Procedure Name Priority Date/Time Associated Diagnosis Comments COLONOSCOPY 09/23/2022 11:20 AM BUSINESS RELATIONS MANAGER from Last 3 Months or Most Recently Relevant to Health Maintenance Results * COLONOSCOPY (09/23/2022 11:20 AM BUSINESS RELATIONS MANAGER) Anatomical Region Laterality Modality Other Narrative Procedure Note Ellen Hayes MD - 09/23/2022 11:20 AM CST ENDOSCOPY LAB Patient Name: Carolyn Chang Procedure Date: 09/23/2022 11:20AM Date of : 1975 Admit Type: Outpatient Age: 47 Gender: Male Attending MD: Ellen Hayes M.D. Room: [facility] ENDOSCOPY ROOM 01 Note Status: Finalized Procedure: [...] The scope was passed under direct vision.The [id number] was introduced through the anusand advanced to [...] your results within this timeframe, please call [phone] regarding your results. - Contact Information: During normal business hours - Please call theNurse Coordinator: [phone] After hours, evening, nights, weekends and holidays- Please call the hospital powder cutting operator at and ask for the GI fellow personal protection specialist. - . Attending Participation: I personally performed the entire procedure. Electronically Signed By: Ellen Hayes M.D. Ellen Hayes M.D. 09/23/2022 11:49:22 AM Number of Addenda: 0 Note Initiated On: 09/23/2022 11:20 AM Ellen Hayes MD ENDOSCOPY PROCEDURES Fin al Result from Last 3 Months or Most Recently Relevant to Health Maintenance Insurance [facility] HMO/PPO Address: [address] [address] [place] [address] MEDICARE [facility] HMO/PPO Address: [address] [address] MEDICARE [facility] HMO/PPO Address: [address] [address] [place] [address] MEDICARE Advance Directives For more information, please contact: [phone] * Full Code (Latest Code Status on File) Date Activated Date Inactivated Comments 09/23/2022 9:25 AM 09/23/2022 4:15 PM Care Teams Plant Supervisor Relationship Specialty Start Date End Date Christiano Sandhu MD PCP - General 05/06/10
--- OUTSIDE RECORDS SUMMARY | 2025-04-18 11:46 | XMS_ITS | Encounter Summary ---
Author Organization 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
--- OUTSIDE RECORDS SUMMARY | 2025-04-18 11:46 | XMS_ITS | Encounter Summary ---
Author Organization [facility] Address [address] [place] [address] Phone Care Team Providers Care Flanging Roll Operator Name Role Phone Christiano Sandhu MD Primary Care Provider + [phone] Encounter Details Date Type Department Care Team (Late st Contact Info) Description 06/18/2016 Orders Only [facility] CLINCONV Provider, MD Kaylee [address] [place] [address] Social History Tobacco Use Types Packs/Day Years Used Date Smoking Tobacco: Never Assessed Sex and Gender Information Value Date Recorded Sex Assigned at Not on file Legal Sex Male 1:25 AM CLIN APPLICATION SPECIALIST Gender Identity Not on file Sexual Orientation [...] on filedocumented in this encounter Care Teams Flanging Roll Operator Relationship Specialty Start Date End Date Christiano Sandhu MD PCP - General 05/06/10 documented as of this encounter
--- OUTSIDE RECORDS SUMMARY | 2025-04-18 11:46 | XMS_ITS | Encounter Summary ---
Author Organization [facility] Address [address] [facility] [address] [place] [address] Phone Care Team Providers Care Sorter Lumber Straightener Name Role Phone Christiano Sandhu MD Primary Care Provider + [phone] Encounter Details Date Type Department Care Team (Late st Contact Info) Description 04/08/2015 Orders Only [facility] CAR CLINCONJosefina Adkins, Pedro Grady Jr., MD [address] [facility] [id number] [place] [address] Social History Tobacco Use Types Packs/Day Years Used Date Smoking Tobacco: Never Assessed Sex and Gender Information Value Date Recorded Sex Assigned at Not on file Legal Sex Male 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
--- OUTSIDE RECORDS SUMMARY | 2025-04-18 11:46 | XMS_ITS | Encounter Summary ---
Author Organization [facility] Address [address] [place] [address] Care Team Providers Care Appeals Assistant Name Role Phone Christiano Sandhu MD Primary Care Provider [phone] Encounter Details Date Type Department Care Team (Late st Contact Info) Description 05/29/2021 Lab Requisition [facility] Pathology Lab [address] [place] [address] Miguel A Carmichael MD [address] [place] [address] Decreased white blood cell count, unspecified [...] 10:14 AM CDT) Case Report Flow Cytometry Case: [id number] Authorizing Provider: Miguel A Carmichael MD Collected: 05/29/2021 10:14 AM Ordering Location: [facility] Care Pathology Lab Received: 05/29/2021 03:49 PM Pathologist: Laurel Cooper MD Specimen: Bone Marrow 06/01/2021 10:28 AM CDT [facility] PATHOLOGY LAB Final Diagnosis Bone marrow, flow cytometric immunophenotypic analysis: - No clonal B-cell or increased blast population seen. - See interpretation. 06/01/2021 10:28 AM [facility] PATHOLOGY LAB at 1028 CDT Flow Cytometry Interpretation The bone marrow specimen [...] the flow cytometry specimen is reviewed for senior quality methods specialist purposes. The bone marrow aspirate specimen shows no evidence of involvement by non-Hodgkin lymphoma or a high-grade myeloid neoplasm, although examination is limited by the aspiculate nature of the aspirate. Correlation with clinical findings, the bone marrow core biopsy (accession number TBD), and relevant cytogenetic/molecu lar studies is required. 06/01/2021 10:28 AM [facility] PATHOLOGY LAB Flow Cytometry Results Differential Result Comment Flow Cell Count /uL 9,300 Total Viability % 96.8 Lymphocytes % 18 Dim CD45 Region % 9 Monocytes % 32 Granulocytes % 39 06/01/2021 10:28 AM [facility] PATH[facility] Reason for test Decreased white blood cell count, unspecified 06/01/2021 10:28 AM [facility] PATH[facility] Client Specimen ID # [id number] 06/01/2021 10:28 AM [facility] PATH[facility] Number of markers 10 were performed. A-2 Flow CD10 A-3 Flow CD13 A-5 Flow CD20 A-1 Flow CD5 A-4 Flow CD19 A-6 Flow CD33 A-7 Flow CD34 A-8 Flow CD45 A-9 [place]+CD19+ A-10 Lambda+CD19+ 06/01/2021 10:28 AM [facility] PATHOLOG[facility] LAB Disclaimer Test performed at [facility], [address] [place] [address], [address]. *The established laboratory minimum viability is 70%. [...] complexity clinical testing. 06/01/2021 10:28 AM CDT [facility] PATHOLOGY LAB Embedded Images 10:28 AM CDT [facility] PATHOLOGY LAB Pathology/Cytolo gy BONE MARROW SPECIMEN / Unknown 05/29/2021 10:14 AM CDT 05/29/2021 3:49 PM CDT us Miguel A Carmichael MD LAB - PATHOLOGY/CYTOLOGY ORDER ARMEN Final Result [facility] PATHOLOGY LAB [address] [phone] documented in this encounter Visit Diagnoses Diagnosis Decreased white blood cell count, unspecified documented in this encounter Care Teams Appeals Assistant Relationship Specialty Start Date End Date Christiano Sandhu MD [address] [place] [address] PCP - General 05/29/21 documented as of this encounter
--- OUTSIDE RECORDS SUMMARY | 2025-04-18 11:46 | XMS_ITS | Encounter Summary ---
Author Organization [facility] [employer] [facility] Address [address] [place] [address] Phone Care Team Providers Care Ingot Caster Name Role Phone Christiano Sandhu MD Primary Care Provider [phone] Encounter Details Date Type Department Care Team (Late st Contact Info) Description 11/18/2014 Orders Only [facility] CLINCONV ProviderKaylee MD [address] [place] [address] Social History Tobacco Use Types Packs/Day Years Used Date Smoking Tobacco: Never Assessed Sex and Gender Information Value Date Recorded Sex Assigned at Not on file Legal Sex Male 1:25 AM PARTS DRIVER Gender Identity Not on file Sexual [...] on filedocumented in this encounter Care Teams Ingot Caster Relationship Specialty Start Date End Date Christiano Sandhu MD PCP - General 05/06/10 documented as of this encounter
--- OUTSIDE RECORDS SUMMARY | 2025-04-18 11:46 | XMS_ITS | Encounter Summary ---
Author Organization [facility] Address [address] [place] [address] Care Team Providers Care Night Shift Name Role Phone Christiano Sandhu MD Primary Care Provider [phone] Encounter Details Date Type Department Care Team (Late st Contact Info) Description 06/02/2021 Lab Requisition [facility] Care Pathology Lab [address] [place] [address] Miguel A Carmichael MD [address] [place] [address] Illness, unspecified Social History Tobacco Use [...] Case Report Bone Marrow Patholog y Report Case: [id number] Authorizing Provider: Miguel A Carmichael MD Collected: 05/29/2021 10:14 AM Ordering Location: [facility] Care Pathology Lab Received: 06/02/2021 07:53 AM Pathologist: Laurel Cooper MD Specimens: A) - Bone Marrow Clot B) - Bone Marrow Core 06/03/2021 10:46 AM CDT [facility] PATHOLOGY LAB Final Diagnosis Bone marrow, aspirate, clot section, and core biopsy: - Hypercellular marrow with maturing trilineage hematopoiesis and megakaryocytic hyperplasia. - No evidence of lymphoma or high-grade myeloid neoplasm. - See description. 06/03/2021 10:46 AM [facility] PATHOLOGY LAB at 1046 CDT AP Comment Due to the hemodilution of the aspirate smear, immunohistochemistry was performed on the core biopsy: CD3, CD20, CD34, and CD138 show normal numbers of T-lymphocytes, B-lymphocytes, blasts, and plasma cells, respectively. In situ hybridization for kappa and lambda mRNA shows no clear clonality in plasma cells (K:L=1). Overall morphologic and immunophenotypic findings are not diagnostic for a hematolymphoid malignancy. 06/03/2021 10:46 AM [facility] Peripheral Smear Description Not received. 06/03/2021 10:46 AM [facility] Bone Marrow Aspirate Differential count (200 cells): not performed due to hemodilution. Specimen quality: hemodilute. Spicules: none. Predominantly peripheral blood elements. Storage iron (by special stain): not evaluable due to lack of spicules. Sideroblastic iron (by special stain): no erythroid precursors seen to assess. 06/03/2021 10:46 AM [facility] Bone Marrow Core Biopsy and [...] similar to core biopsy. 06/03/2021 10:46 AM [facility] Flow Cytometry Summary [id number]: No aberrancies. 06/03/2021 10:46 AM [facility] Clinical History Infection. Rule out hematolymphoid neoplasm. 06/03/2021 10:46 AM [facility] PATH[facility] Materials Received Received are 18 slide(s) and 4 blocks (A1, A2, A3, B1)labeled [id number] along with a copy of the outside pathology report. The materials originate from [address], [place] [address]. All original materials are returned to the referring institution, along with a copy of our final report. 06/03/2021 10:46 AM CDT [facility] PATHOLOGY LAB Disclaimer The performance characteristics of all immunohistochemical and indirect immunofluorescence stains (if any) cited in this report were determined by the Histopathology Laboratory of [facility]. Some of these tests were developed by [...] attending (teaching) pathologist. 06/03/2021 10:46 AM CDT [facility] PATHOLOGY LAB Embedded Images 06/03/2021 10:46 AM CDT [facility] PATHOLOG[facility] LAB Pathology/Cytology BONE MARROW SPECIMEN / Unknown 05/29/2021 10:14 AM CDT 06/02/2021 7:53 AM CDT Miscellaneous samples (specimen) BONE MARROW SPECIMEN / Unknown 05/29/2021 10:14 AM CDT 06/02/2021 7:53 AM CDT us Miguel A Carmichael MD LAB - PATHOLOGY/CYTOLOGY ORDER ARMEN Final Result Performing Organization Address City/State/[facility] Phone Number [facility] PATHOLOGY LAB [address] [phone] documented in this encounter Visit Diagnoses Diagnosis Illness, unspecified documented in this encounter Care Teams Night Shift Relationship Specialty Start Date End Date Christiano Sandhu MD [address] [place] [address] PCP - General 05/29/21 documented as of this encounter
--- NOTE | 2025-04-18 11:47 | ECG_ITS ---
Test Date: 2025-04-18 11:52:22 Measurements Intervals Outlook Rate: P: 0 VT: 0 QRS: 0 QRSD: 0 T: 0 QT: 0 QTc: 0 Interpretive Statements sinus rhythm with pacs st depression, t inversion lateral leads Electronically Signed On 04-18-2025 13:19:48 CDT by Issac Kay M.D.
== END 2025-04-18 11:43 | disposition home or self-care (01) ==
PROVIDERS: Visit Provider Internal Medicine Cardiovascular Disease
DX: I48.0 Paroxysmal atrial fibrillation (principal)
CPT/HCPCS: 93005

== ENCOUNTER 2025-04-30 14:32 | Outpatient (CLI) | payer OTHER, MEDICARE, SELFPAY ==
--- NOTE | ~2025-04-30 | CT_ITS ---
EXAMINATION: CT knee LT wo con DATE: 04/30/2025 14:53 INDICATION: Left knee injury TECHNIQUE: High resolution computed tomography (CT) of the left knee was performed without intravenou s contrast. Additional sagittal and coronal reconstructions were performed. Automated exposure contro l and iterative reconstruction technique were employed. The dose-length product was 483.46 mGy-cm. COMPARISON: None FINDINGS: Bone alignment is normal. No fracture. Joint spaces appear normal however joint space narrowing can b e underestimated on nonweightbearing imaging. Cortical irregularity and subarticular cystlike change along the medial trochlea consistent with overlying high-grade chondromalacia. Very small left knee j oint effusion without layering lipohemarthrosis to suggest occult fracture. The tendons and stabilizi ng ligaments clearly appear normal on noncontrast CT imaging however evaluation is significantly more limited than on MRI. IMPRESSION: 1. Very small left knee joint effusion with no acute osseous abnormality. 2. At least mild osteoarthritis in the patellofemoral compartment with bone changes along the medial trochlea consistent with overlying high-grade chondromalacia. 2. Reviewed, dictated and finalized at location A. IMPRESSION: 1. Very small left knee joint effusion with no acute osseous abnormality. 2. At least mild osteoarthritis in the patellofemoral compartment with bone sunshine nges along the medial trochlea consistent with overlying high-grade chondromala tressa. 2.
--- OUTSIDE RECORDS SUMMARY | 2025-04-30 14:37 | XMS_ITS | Encounter Summary ---
Author Organization [facility] [employer] [facility] Address [address] [place] [address] Phone Care Team Providers Care Science Professor Name Role Phone Christiano Sandhu MD Primary Care Provider [phone] Encounter Details Date Type Department Care Team (Late st Contact Info) Description 06/18/2016 Orders Only [facility]INCONV Provider, MD Kaylee [address] [place] [address] Social History Tobacco Use Types Packs/Day Years Used Date Smoking Tobacco: Never Assessed Sex and Gender Information Value Date Recorded Sex Assigned at Not on file 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
--- OUTSIDE RECORDS SUMMARY | 2025-04-30 14:37 | XMS_ITS | Referral Summary ---
Author Organization [facility] [address] Address [address] [place] [address] Care Team Providers Care Vp Of Product Name Role Phone Christiano Sandhu MD Primary Care Provider [phone] Allergies Active Allergy Reactions Criticality Noted Date [...] mg tablet 20 mg 07/08/2022 Active omega 3-nkz-jwj-fish oil 1,000 mg (120 mg-180 mg) capsule [...] (07/26/2022): Added automatically from request for surgery [id number] Change in bowel habits 07/26/2022 Overview (07/26/2022): Added automatically from request for surgery [id number] Nausea 07/26/2022 Overview (07/26/2022): Added automatically from request for surgery [id number] Automatic implantable cardiac defibrillator in s itu 03/11/2021 Overview (03/11/2021): [employer] Dual ICD. Dx; HOCM, PAF. 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 Gender Identity Not on file Sexual Orientation Not on file Last Filed Vital Signs Vital Sign Reading Time Taken Comments Blood Pressure 114/66 09/23/2022 12:00 PM TAX TECHNICIAN Pulse 60 09/23/2022 12:00 PM TAX TECHNICIAN Temperature 36.3 C (97.3 F) 09/23/2022 11:45 AM TAX TECHNICIAN Respiratory Rate 19 09/23/2022 12:00 PM TAX TECHNICIAN Oxygen Saturation 95% 09/23/2022 12:00 PM TAX TECHNICIAN Inhaled Oxygen Concentration - - Weight 108.9 kg (240 lb) 09/23/2022 9:30 AM TAX TECHNICIAN Height 182.9 cm (6') 09/23/2022 9:30 AM TAX TECHNICIAN Body Mass Index 32.55 09/23/2022 9:30 AM TAX TECHNICIAN Plan of Treatment Not on file Procedures Procedure Name Priority Date/Time Associated Diagnosis Comments COLONOSCOPY 09/23/2022 11:20 AM TAX TECHNICIAN from Last 3 Months or Most Recently Relevant to Health Maintenance Results * COLONOSCOPY (09/23/2022 11:20 AM TAX TECHNICIAN) Anatomical Region Laterality Modality Other Narrative Procedure Note Ellen Hayes MD - 09/23/2022 11:20 AM [facility] ENDOSCOPY LAB Patient Name: Carolyn Chang Procedure Date: 09/23/2022 11:20AM Date of : 1975 Admit Type: Outpatient Age: 47 Gender: Male Attending MD: Ellen Hayes M.D. Room: [facility] ENDOSCOPY ROOM 01 Note Status: [...] The scope was passed under direct vision.The [id number] was introduced through the anusand advanced to [...] your results within this timeframe, please call [phone] regarding your results. - Contact Information: During normal business hours - Please call theNurse Coordinator: [phone] After hours, evening, nights, weekends and holidays- Please call the hospital kicking machine operator at and ask for the GI fellow health promotion specialist. - . Attending Participation: I personally performed the entire procedure. Electronically Signed By: Ellen Hayes M.D. Ellen Hayes M.D. 09/23/2022 11:49:22 AM Number of Addenda: 0 Note Initiated On: 09/23/2022 11:20 AM Ellen Hayes MD ENDOSCOPY PROCEDURES Fin al Result from Last 3 Months or Most Recently Relevant to Health Maintenance Insurance [facility]/PPO Address: [address] [address] [place] [address] MEDICARE [facility]/PPO Address: [address] [address] [place] [address] MEDICARE R [facility]/PPO Address: [address] [address] [place] [address] [place] [address] Advance Directives For more information, please contact: [phone] * Full Code (Latest Code Status on File) Date Activated Date Inactivated Comments 09/23/2022 9:25 AM 09/23/2022 4:15 PM Care Teams Vp Of Product Relationship Specialty Start Date End Date Christiano Sandhu MD PCP - General 05/06/10
--- OUTSIDE RECORDS SUMMARY | 2025-04-30 14:37 | XMS_ITS | Encounter Summary ---
Author Organization [facility] [employer] [facility] Address [address] [place] [address] Phone Care Team Providers Care Wet Process Miller Head Assistant Name Role Phone Christiano Sandhu MD Primary Care Provider [phone] Encounter Details Date Type Department Care Team (Late st Contact Info) Description 03/17/2015 Orders Only [facility] CLINCON[facility] ProviderKaylee MD [address] [place] [address] Social History Tobacco Use Types Packs/Day Years Used Date Smoking Tobacco: Never Assessed Sex and Gender Information Value Date Recorded Sex Assigned at Not on file 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
--- OUTSIDE RECORDS SUMMARY | 2025-04-30 14:37 | XMS_ITS | Encounter Summary ---
Author Organization [facility] [employer] [facility] Address [address] [place] [address] Phone Care Team Providers Care Medical Records Director Name Role Phone Christiano Sandhu MD Primary Care Provider [phone] Encounter Details Date Type Department Care Team (Late st Contact Info) Description 11/05/2014 Orders Only [facility] CLINCONV ProviderKaylee MD [address] [place] [address] Social History Tobacco Use Types Packs/Day Years Used Date Smoking Tobacco: Never Assessed Sex and Gender Information Value Date Recorded Sex Assigned at Not on file 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
--- OUTSIDE RECORDS SUMMARY | 2025-04-30 14:37 | XMS_ITS | Data Portability ---
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 He is under the care of a director of distance learning has a pacemaker and a defibrillator. I [...] this plan. Amount of time 45 minutes [email or web address] Not available 10/31/2024 22:07:40 11/09/2024 11/09/2024 1. [...] on this date of service including both ffjr-tp-iuoy and qdd-wdgt-xs-face time excluding any separately reportable services. [email or web address] Not available 11/10/2024 10:54:16 02/11/2025 02/11/2025 1. He has an anoxic brain injury which keeps him from focusing well. He is quite depressed by this and feels that it affects his energy level. I will talk with his director of distance learning about the possibility of putting him on Ritalin to see if this will be helpful. We could also consider an antidepressant. Once I talk to the director of distance learning I will make further recommendations. 2. Type 2 diabetes. Will check a hemoglobin A1c today. He does check his blood sugars periodically. 3. Hocm. He has had a septoplasty. He is on medication for blood pressure. He is also on Eliquis for this. 4. Congestive heart failure. He denies any significant shortness of breath or edema. he sees a director of distance learning for this. I will see him back in 6 months at which time he will be due for full laboratory tests. I will contact him once I have more information. He indicates his understanding and agrees with this plan. Time 30 minutes [email or web address] Not available 02/11/2025 14:11:46 04/05/2025 04/05/2025 1. [...] results. Total amount of time 30 minutes Not available 04/08/2025 23:12:55 Plan of Treatment Reminders Order Date Submit Date Provider Last Modified By Organization Details Last Modified Time Details Appointments [facility] Patient 30.EST 2024 11:00A M Dr. Ellen Underwood Not available Not available Not available [facility] Patient 30.EST 2024 08:15A M Dr. Ellen Underwood Not available Not available Not available Lab lyme disease igg+igm Ab, serum 2024 025 [facility], [address] [place] [address], [id number], 04/08/2025 14:11:52 hemoglob in A1c + average glucose, QN, blood 2024 025 [facility], [address] [place] [address], [id number], 02/11/2025 19:53:42 streptoc occus group A DNA 2024 025 [facility], [address] [place] [address], [id number], 11/09/2024 17:28:59 Referral None recorded . Procedures None recorded . Surgeries None recorded . Imaging None recorded . Medication Orders lisinopr il 5 mg tablet 2024 025 [id number], [address], [place], [id number], 04/05/2025 10:44:46 Patient TargetsNo targets recorded. Patient [...] by DNA ampli ficat ion. Not Available [facility] [address] [place] [address], [id number], 11/09/2024 17:28:59 02/12/20 25 02/11/2025 hemog lobin A1c + avera ge gluco se, QN, blood hemoglobin A1C Not Available [facility] [address] [place] [address], [id number], 02/11/2025 19:53:42 02/12/20 25 02/11/2025 hemog lobin A1c + avera ge gluco se, QN, blood HGB A1C 6.8 %_A1C 4.3 - 5.6 high Not Available [facility] [address] [place] [address], [id number], 02/11/2025 19:53:42 02/12/20 25 02/11/2025 hemog lobin A1c + avera ge gluco se, QN, blood estimated average glucose 148 mg/dL Not Available [facility] [address] [place] [address], [id number], 02/11/2025 19:53:42 04/05/20 25 04/08/2025 lyme disea [...] 14 days is ruperto waters Not Available [facility] [address] [place] [address], [place], [address], 04/08/2025 14:11:52 03/01/2011/03/2024 XR, wrist , 3 [...] Details Recorded Time Chronic diastolic heart failure 432013259 Active 2024 Ellen Underwood MD [address] [place] [address], [address], [facility] 5 21:45:33 Hypertrop hic obstructi ve cardiomyo maria luisa 11317819 Active 2024 Ellen Underwood MD [address] [place] [address], [address], [facility] 5 21:45:42 Type 2 diabetes mellitus 95684777 Active [address] [facility], [facility] 5 10:41:54 Pain of joint 14138624 Active 2024 Ellen Underwood MD [address] [place] [address], [address], [facility] 5 21:46:29 Erectile dysfuncti on 637545590 Active 2024 Ellen Underwood MD [address] [place] [address], [address], [facility] 5 21:46:54 Diabetic periphera l neuropath y 523202208 Active 2024 Ellen Underwood MD [facility] [place] [address], [address], [facility] 5 21:47:04 Reactive depressio n (situatio nal) 71490930 Active 2024 Ellen Underwood MD [facility], [address], [facility] 5 21:47:20 Primary insomnia 1230084 Active 2024 Ellen Underwood MD [address] [place] [address], [address], [facility] 5 21:47:34 Obstructi ve sleep apnea syndrome 39907550 Active 2024 Ellen Underwood MD [facility] [address], [address], [facility] 5 21:47:41 Pyrexia of unknown origin 4593348 Active 2024 Ellen Underwood MD [facility] [place] [address], [address], [facility] 5 21:48:06 Paroxysma l atrial fibrillat ion 417778279 Active 2024 Ellen Underwood MD [address] [place] [address], [address], [facility] 5 21:48:47 Long-term current use of anticoagu lant 207317762 Active 2024 Ellen Underwood MD [address] [place] [address], [address], [facility] 5 21:48:54 Essential hypertens ion 94863334 Active 2024 Ellen Underwood MD [address] [place] [address], [address], [facility] 5 21:50:50 Mixed hyperlipi demia 955871391 Active 2024 Ellen Underwood MD [address] [place] [address], [address], [facility] 5 21:51:01 Anoxic encephalo maria luisa 845558145 Active 2024 Ellen Underwood MD [address] [place] [address], [address], [facility] 5 22:03:39 Hematoma of right lower limb Active 2024 Misael Sotelo PA-C [address] [place] [address], [address], [facility] 5 17:16:49 Acute conjuncti vitis of bilateral eyes 238391218842 104 Active 2024 Misael Sotelo PA-C [address] [place] [address], [address], [facility] 5 17:06:00 Adult attention deficit hyperacti vity disorder 189655231 Active 2024 Ellen Underwood MD [address] [place] [address], [address], [facility] 5 18:25:03 Tick bite 31977047 Active 2024 Ellen Underwood MD [address] [place] [address], [address], [facility] 5 10:50:05 Injury of left knee 894231645550 106 Active 2024 [facility] 15:54:13 Cardiac pacemaker in situ 364923162 Active 2024 [facility] 11:17:40 Problem Notes None recorded. Procedures Surgical History Date Name Laterality Status Provider Name and Address Organization Details Recorded Time 023 decompression of median nerve completed Ellen Underwood MD [address] [place] [address], [address], [facility] 10/31/2024 21:52:40 022 colonoscopy completed Ellen Underwood MD [address] [place] [address], [address], [facility] 10/31/2024 21:54:30 015 open myomectomy completed Ellen Underwood MD [address] [place] [address], [address], [facility] 10/31/2024 21:52:16 decompression of ulnar nerve at elbow completed Ellen Underwood MD [address] [place] [address], [address], [facility] 10/31/2024 21:52:49 procedure on wrist completed Lorelei Underwood MD [address] [place] [address], [address], [facility] 10/31/2024 21:53:06 implantation of cardiac resynchronization defibrillator system completed Ellen Underwood MD [address] [place] [address], [address], [facility] 10/31/2024 21:53:18 Colonoscopy with biopsy completed Not Available Health Note 02/10/2025 21:44:41 Insert heart pm atrial completed Not Available Health Note 02/10/2025 21:44:41 Imaging Results None recorded. Procedure Notes None recorded. Medical Equipment None Reported. Allergies Allergen ID Allergen Name Allergen Category Reaction Reaction Severity Criticality Documentation Date Start Date Code Code System Note Provider Name and Address Organization Details Recorded Time 6102784 Substance with sulfonami de structure and antibacte rial mechanism of action (substanc e) medicatio n anaphylax is severe high 10/31/2024 63887 8003 SNOMED Sarah Whalen [facility] 17:25:52 Medications Name Sig Start Date [...] Available Not Available lisinopril 5 mg tablet TAKE 1 TABLET BY MOUTH EVERY DAY active Not Available Not Available No t Available metformin ER 500 mg tablet,exte nded release 24 hr TAKE 2 TABLETS BY MOUTH TWICE DAILY active Not Available Not Available No t Available finasteride 5 mg tablet TAKE 1 TABLET BY MOUTH DAILY active Not Available Not Available No t Available atomoxetine 40 mg capsule TAKE 1 CAPSULE BY MOUTH EVERY DAY active Not Available Not Available No t Available atomoxetine 80 mg capsule TAKE 1 CAPSULE BY MOUTH [...] Updated DateTime 5 180.34 cm 31.2 kg/m2 690953. 69 g 97.1 [degF] 64 /min 95 % 95 % 146/82 mm[Hg] Sarah Koby [facility] 5 17:25:05 Date Recorded Body height Body mass index (BMI) Body weight Body temperature Heart rate Respiratory rate Oxygen saturation Oxygen saturation in Arterial blood by Pulse oximetry Systolic And Diastolic Provider Name and Address Organization Details Last Updated DateTime 5 180.34 cm 31 kg/m2 547035. 94 g 98.1 [degF] 81 /min 20 /min 95 % 95 % 146/74 mm[Hg] Soraya Nava [facility] 5 16:58:50 Date Recorded Body height Body mass index (BMI) Body weight Body temperature Heart rate Oxygen saturation Oxygen saturation in Arterial blood by Pulse oximetry Systolic And Diastolic Provider Name and Address Organization Details Last Updated DateTime 5 180.34 cm 32.4 kg/m2 499556. 15 g 97.2 [degF] 65 /min 99 % 99 % 140/86 mm[Hg] Yulisa Rae [facility] 5 09:48:56 Date Recorded Body height Body mass index (BMI) Body weight Body temperature Heart rate Oxygen saturation Oxygen saturation in Arterial blood by Pulse oximetry Systolic And Diastolic Provider Name and Address Organization Details Last Updated DateTime 5 180.34 cm 31.8 kg/m2 362525. 34 g 97.5 [degF] 72 /min 97 % 97 % 146/92 mm[Hg] Funmilayo Woods [facility] 5 10:07:35 Social History Question Answer [...] Time Paternal Uncle Hypertrophic obstructive cardiomyopat hy Not available 2024 21:49:34 Paternal Uncle Malignant neoplasm of lung [email or web address] Not available 2024 21:49:53 Paternal Aunt Malignant neoplasm of lung [email or web address] Not available 2024 21:49:53 Paternal Grandmother Type 2 diabetes mellitus [email or web address] Not available 2024 21:50:09 Paternal Grandmother Diabetes mellitus [email or web address] Not available 2024 21:44:40 Paternal Grandmother Heart disease [email or web address] Not available 2024 21:44:40 Paternal Grandmother Hypercholest erolemia [email or web address] Not available 2024 21:44:40 Father Cerebrovascu lar accident Not available 21:50:21 Father Hypertensive disorder [email or web address] Not available 2024 21:50:30 Father Heart disease [...] 50 mcg/0.25mL dose 02/07/2021 completed Sarah Whalen [facility] 10/31/2024 17:25:10 COVID-19, mRNA, LNP-S, PF, 100 mcg/0.5mL dose or 50 mcg/0.25mL dose 03/07/2021 completed Sarah Whalen null, [facility] 10/31/2024 17:25:10 Tdap 03/15/2022 completed Sarah Whalen null, [facility] 10/31/2024 17:25:10 zoster recombinant 12/12/2024 completed Funmilayo Woods null, [facility] 04/05/2025 10:07:50 Past Encounters Encounter ID Performer Location Encounter Start Date Encounter Closed Date Diagnosis/Indication Diagnosis SNOMED-CT Code Diagnosis ICD10 Code Diagnosis Note [id number] Ellen Underwood MD [facility] [place] ([place]) [place] [address] 10/31/2024 16:40:59 11/01/2024 10:00:56 Diabetic peripheral neuropathy 278064192 E11.42 Essential hypertension 15858108 I10 Hypertroph ic obstructive cardiomyopathy 18358723 I42.1 Reactive d epression (situational) 73311447 F32.9 Type 2 ruben betes mellitus 10254420 E11.8 Anoxic encephalopathy 38 9981911 G93.1 [id number] Cornelio Sotelo [facility]-C [facility] ([place]) [place] [address] 11/09/2024 16:36:46 11/12/2024 11:14:38 Tonsillitis 47829239 J03.90 Hematoma o f right lower limb 1203486973 7100 S80.11XA [id number] Ellen Underwood MD [facility] [place] ([place]) [place] [address] 02/11/2025 09:41:42 02/11/2025 10:23:21 Hypertrophic obstructive cardiomyopathy 22739259 I42.1 Type 2 ruben betes mellitus 07153990 E11.8 E11.69 Anoxic encephalopathy 38 7311901 G93.1 Chronic di astolic heart failure 648283344 I50.32 Reactive d epression (situational) 84406631 F32.9 [id number] MD [facility] [place]) [address] [facility] [place] [address] 04/05/2025 09:55:23 04/05/2025 11:37:08 Adult attention deficit hyperactivity disorder 590058418 F98.8 Essential hypertension 35829853 I10 Tick bite 11765768 S50.8 69S W57.XXXS Health Concerns Section Related Observation LastModified by Organization Detai ls LastModified Time None Recorded Concern Status LastModified by Organization Details LastModified Time None Recorded Advance Directives Directive N: Payers Insurance Date Sequence Insurance Name Policy Number Policy Rudd Covered Member ID Rudd Member ID Guarantor Name 04/10/2025 [place] A - [facility] (MEDICARE) Porfirio Dimas Charlene [id number] Porfirio Charlene 04/10/2025 1 [facility] [id number] Ritu Chang [id number] Porfirio Charlene 03/31/2025 2 [place] Porfirio Dimas Charlene [id number] Porfirio Chang Notes Date Note Type Note [...] 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 He had been working at [employer]. He believes that his paternal uncle and [...] was 7.1. He recently got a new director of distance learning. Dr Hobbs is from [place] and sees Porfirio at [facility] decreased his pacemaker rate to 60 [...] when he was younger. He worked at [employer] and when they had a massive layoff [...] the and his daughter is completing nurse loan funder's school and will be working in [employer] in the near future. His works as a recovery room nurse. Ellen Underwood MD [address] [facility], [place], [address], [facility] 10/31/2024 22:08:05 5 text/html The patient comes in today for follow-up ER visit at [facility]. He fell landing on his right hip on the . He had severe pain in the hip and went to [facility]. He had large swelling and bruising by [...] known illnesses. Misael Sotelo PA-C [address] [place] [address], [address], [facility] 11/14/2024 10:46:49 5 text/html Porfirio Rucker a [...] told him I would talk to this director of distance learning to find out if we could use a mental stimulant for him. I am not sure if this would be safe with his heart problems. We talked about his family. he has 2 children. His son is finished college and is working towards becoming a cage supervisor. His daughter will be working as a nurse loan funder. He sees the eye doctor and dentist on a regular basis. Ellen Underwood MD [address] [place] [address], [address], [facility] 02/11/2025 14:13:24 5 text/html Porfirio Rucker a [...] recently injured his knee. This occurred at [employer] when he was reacting to a young [...] the cartilage. Ellen Underwood MD [address] [facility], [place], [address], [facility] 04/08/2025 23:14:58
--- OUTSIDE RECORDS SUMMARY | 2025-04-30 14:37 | XMS_ITS | Encounter Summary ---
Author Organization [facility] [employer] [facility] Address [address] [place] [address] Phone Care Team Providers Care Media Reporter Name Role Phone Christiano Sandhu MD Primary Care Provider [phone] Encounter Details Date Type Department Care Team (Late st Contact Info) Description 06/17/2015 Orders Only [facility] ProviderKaylee MD [address] [place] [address] Social History Tobacco Use Types Packs/Day Years Used Date Smoking Tobacco: Never Assessed Sex and Gender Information Value Date Recorded Sex Assigned at Not on file 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
--- OUTSIDE RECORDS SUMMARY | 2025-04-30 14:37 | XMS_ITS | Encounter Summary ---
Author Organization [facility] [employer] [facility] Address [address] [place] [address] Phone Care Team Providers Care Vat Skimmer Name Role Phone Christiano Sandhu MD Primary Care Provider [phone] Encounter Details Date Type Department Care Team (Late st Contact Info) Description 02/17/2015 Orders Only [facility] Provider, MD Kaylee [address] [place] [address] Social History Tobacco Use Types Packs/Day Years Used Date Smoking Tobacco: Never Assessed Sex and Gender Information Value Date Recorded Sex Assigned at Not on file 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
--- OUTSIDE RECORDS SUMMARY | 2025-04-30 14:37 | XMS_ITS | Encounter Summary ---
Author Organization [facility] Address [address] [place] [address] Care Team Providers Care Performance Analyst Name Role Phone Christiano Sandhu MD Primary Care Provider [phone] Encounter Details Date Type Department Care Team (Late st Contact Info) Description 05/29/2021 Lab Requisition [facility] Pathology Lab [address] [place] [address] Miguel A Carmichael MD [address] [place] [address] Decreased white blood cell count, unspecified [...] AM CDT) Case Report Flow Cytometry Case: [id number] Authorizing Provider: Miguel A Carmichael MD Collected: 05/29/2021 10:14 AM Ordering Location: [facility] Care Pathology Lab Received: 05/29/2021 03:49 PM Pathologist: Laurel Cooper MD Specimen: Bone Marrow 06/01/2021 10:28 AM CDT [facility] PATH[facility]Y [facility] Final Diagnosis Bone marrow, flow cytometric immunophenotypic analysis: - No clonal B-cell or increased blast population seen. - See interpretation. 06/01/2021 10:28 AM [facility] PATHOLOGY LAB at 1028 CDT Flow [...] flow cytometry specimen is reviewed for senior software quality analyst purposes. The bone marrow aspirate specimen shows no evidence of involvement by non-Hodgkin lymphoma or a high-grade myeloid neoplasm, although examination is limited by the aspiculate nature of the aspirate. Correlation with clinical findings, the bone marrow core biopsy (accession number TBD), and relevant cytogenetic/molecu lar studies is required. 06/01/2021 10:28 AM [facility] PATH[facility] Flow Cytometry Results Differential Result Comment Flow Cell Count /uL 9,300 Total Viability % 96.8 Lymphocytes % 18 Dim CD45 Region % 9 Monocytes % 32 Granulocytes % 39 06/01/2021 10:28 AM [facility] Reason for test Decreased white blood cell count, unspecified 06/01/2021 10:28 AM [facility] Client Specimen ID # [id number] 06/01/2021 10:28 AM [facility] Number of markers 10 were performed. A-2 Flow CD10 A-3 Flow CD13 A-5 Flow CD20 A-1 Flow CD5 A-4 Flow CD19 A-6 Flow CD33 A-7 Flow CD34 A-8 Flow CD45 A-9 Devon+CD19+ A-10 Lambda+CD19+ 06/01/2021 10:28 AM [facility] Disclaimer Test performed at [facility], [address] [place] [address], [address]. *The established laboratory minimum viability is 70%. [...] complexity clinical testing. 06/01/2021 10:28 AM CDT [facility] PATHOLOGY LAB Embedded Images 10:28 AM CDT [facility] PATH[facility] Pathology/Cytolo gy BONE MARROW SPECIMEN / Unknown 05/29/2021 10:14 AM CDT 05/29/2021 3:49 PM CDT us Miguel A Carmichael MD LAB - PATHOLOGY/CYTOLOGY ORDER ARMEN Final Result [facility] [address] [phone] documented in this encounter Visit Diagnoses Diagnosis Decreased white blood cell count, unspecified documented in this encounter Care Teams Performance Analyst Relationship Specialty Start Date End Date Christiano Sanduh MD [address] [place] [address] PCP - General 05/29/21 documented as of this encounter
--- OUTSIDE RECORDS SUMMARY | 2025-04-30 14:37 | XMS_ITS | Encounter Summary ---
Author Organization [facility] Address [address] [place] [address] Care Team Providers Care Licensing Officer Name Role Phone Christiano Sandhu MD Primary Care Provider [phone] Encounter Details Date Type Department Care Team (Late st Contact Info) Description 06/02/2021 Lab Requisition [facility] Care Pathology Lab [address] [place] [address] Miguel A Carmichael MD [address] [place] [id number] Illness, unspecified Social History Tobacco Use [...] Report Bone Marrow Patholog y Report Case: [id number] Authorizing Provider: Miguel A Carmichael MD Collected: 05/29/2021 10:14 AM Ordering Location: [facility] Care Pathology Lab Received: 06/02/2021 07:53 [...] neoplasm. - See description. 06/03/2021 10:46 AM [facility] PATHOLOGY LAB at 1046 CDT AP Comment [...] for a hematolymphoid malignancy. 06/03/2021 10:46 AM [facility] PATHOLOGY LAB Peripheral Smear Description Not received. 06/03/2021 10:46 AM [facility] PATHOLOGY LAB Bone Marrow Aspirate Differential count (200 cells): not performed due to hemodilution. Specimen quality: hemodilute. Spicules: none. Predominantly peripheral blood elements. Storage iron (by special stain): not evaluable due to lack of spicules. Sideroblastic iron (by special stain): no erythroid precursors seen to assess. 06/03/2021 10:46 AM [facility] PATHOLOGY LAB Bone Marrow Core Biopsy and [...] similar to core biopsy. 06/03/2021 10:46 AM [facility] PATHOLOGY LAB Flow Cytometry Summary [id number]: No aberrancies. 06/03/2021 10:46 AM [facility] PATHOLOGY LAB Clinical History Infection. Rule out hematolymphoid neoplasm. 06/03/2021 10:46 AM [facility] PATHOLOGY LAB Materials Received Received are 18 slide(s) and 4 blocks (A1, A2, A3, B1)labeled [id number] along with a copy of the outside pathology report. The materials originate from [address], [place] [address]. All original materials are returned to the referring institution, along with a copy of our final report. 06/03/2021 10:46 AM CDT [facility] PATHOLOGY LAB Disclaimer The performance characteristics of all immunohistochemical and indirect immunofluorescence stains (if any) cited in this report were determined by the Histopathology Laboratory of [facility]. Some of these tests were developed [...] attending (teaching) pathologist. 06/03/2021 10:46 AM CDT [facility] PATHOLOGY LAB Embedded Images 06/03/2021 10:46 AM CDT [facility] PATHOLOGY LAB Pathology/Cytology BONE MARROW SPECIMEN / Unknown 05/29/2021 10:14 AM CDT 06/02/2021 7:53 AM CDT Miscellaneous samples (specimen) BONE MARROW SPECIMEN / Unknown 05/29/2021 10:14 AM CDT 06/02/2021 7:53 AM CDT us Miguel A Carmichael MD LAB - PATHOLOGY/CYTOLOGY ORDER ARMEN Final Result Performing Organization Address City/State/[facility] Phone Number [facility] PATHOLOGY LAB [address] [phone] documented in this encounter Visit Diagnoses Diagnosis Illness, unspecified documented in this encounter Care Teams Licensing Officer Relationship Specialty Start Date End Date Christiano Sandhu MD [address] [place] [address] PCP - General 05/29/21 documented as of this encounter
--- OUTSIDE RECORDS SUMMARY | 2025-04-30 14:37 | XMS_ITS | Clinical Summary ---
Author Organization [facility] [address] Address [address] [place] [address] Care Team Providers Care Belt Notcher Name Role Phone Christiano Sandhu MD Primary Care Provider + [phone] Allergies Active Allergy Reactions Criticality Noted Date [...] mg tablet 20 mg 07/08/2022 Active omega 6-oyu-nfs-fish oil 1,000 mg (120 mg-180 mg) capsule [...] (07/26/2022): Added automatically from request for surgery [id number] Change in bowel habits 07/26/2022 Overview (07/26/2022): Added automatically from request for surgery [id number] Nausea 07/26/2022 Overview (07/26/2022): Added automatically from request for surgery [id number] Automatic implantable cardiac defibrillator in s itu 03/11/2021 Overview (03/11/2021): [employer] Dual ICD. Dx; HOCM, PAF. Gen change [...] myectomy(Cardiac) CARDIAC DEFIBRILLATOR PLACEMENT 10/10/2014 - 10/09/2015 Appointment[facility]-last device check 02/2022-media section Medical History Medical [...] on file Legal Sex Male 1:25 AM AP[employer] Gender Identity Not on file Sexual Orientation Not on file Obstetrics History Last Filed Vital Signs Vital Sign Reading Time Taken Comments Blood Pressure 114/66 09/23/2022 12:00 PM [employer] Pulse 60 09/23/2022 12:00 PM [employer] Temperature 36.3 C (97.3 F) 09/23/2022 11:45 AM [employer] Respiratory Rate 19 09/23/2022 12:00 PM [employer] Oxygen Saturation 95% 09/23/2022 12:00 PM [employer] Inhaled Oxygen Concentration - - Weight 108.9 kg (240 lb) 09/23/2022 9:30 AM [employer] Height 182.9 cm (6') 09/23/2022 9:30 AM [employer] Body Mass Index 32.55 09/23/2022 9:30 AM [employer] Plan of Treatment Health Maintenance Due Date [...] Associated Diagnosis Comments COLONOSCOPY 09/23/2022 11:20 AM [employer] from Last 3 Months or Most Recently Relevant to Health Maintenance Results * COLONOSCOPY (09/23/2022 11:20 AM [employer]) Anatomical Region Laterality Modality Other Narrative Procedure Note Ellen Hayes MD - 09/23/2022 11:20 AM CST ENDOSCOPY LAB Patient Name: Carolyn Chang Procedure Date: 09/23/2022 11:20AM Date of : 1975 Admit Type: Outpatient Age: 47 Gender: Male Attending MD: Ellen Hayes M.D. Room: [facility] ENDOSCOPY ROOM 01 Note Status: [...] The scope was passed under direct vision.The [id number] was introduced through the anusand advanced to [...] your results within this timeframe, please call [phone] regarding your results. - Contact Information: During normal business hours - Please call theNurse Coordinator: [phone] After hours, evening, nights, weekends and holidays- Please call the hospital tow operator at and ask for the GI fellow source water protection specialist. - . Attending Participation: I personally performed the entire procedure. Electronically Signed By: Ellen Hayes M.D. Ellen Hayes M.D. 09/23/2022 11:49:22 AM Number of Addenda: 0 Note Initiated On: 09/23/2022 11:20 AM Ellen Hayes MD ENDOSCOPY PROCEDURES Fin al Result from Last 3 Months or Most Recently Relevant to Health Maintenance Insurance [facility] H[facility]/PPO Address: [address] [address] [place] [address] MEDICARE [facility] H[facility]/PPO Address: [address] [address] MEDICARE [facility] H[facility]/PPO Address: [address] [address] [place] [address] MEDICARE Advance Directives For more information, please contact: [phone] * Full Code (Latest Code Status on File) Date Activated Date Inactivated Comments 09/23/2022 9:25 AM 09/23/2022 4:15 PM Care Teams Belt Notcher Relationship Specialty Start Date End Date Christiano Sandhu MD PCP - General 05/06/10
--- OUTSIDE RECORDS SUMMARY | 2025-04-30 14:37 | XMS_ITS | Clinical Summary ---
Author Organization [facility] Address [address] [place] [address] Care Team Providers Care Tractor Trailer Truck Driver Name Role Phone Christiano Sandhu MD Primary Care Provider Source Comments [facility],non-owned Affiliates and Associated Physician Practices is amultiple site organization consisting of ambulatory clinics and hospital sitesin [place], [place], [place] and [place]. This disclosure is being madepursuant to the Care Everywhere program and may not contain all information available regarding this patient. Last updated 18.[facility] [place] Social History Tobacco Use Types Packs/Day Years [...] patient's age to complete this topic Insurance [employer] MEDICARE [employer] Care Teams Tractor Trailer Truck Driver Relationship Specialty Start Date End Date Christiano Sandhu MD [address] [place] [address] PCP - General 05/29/21
--- OUTSIDE RECORDS SUMMARY | 2025-04-30 14:37 | XMS_ITS | Encounter Summary ---
Author Organization [facility] [employer] [facility] Address [address] [facility] [address] [place] [address] Phone Care Team Providers Care Agricultural Purchasing Agent Name Role Phone Christiano Sandhu MD Primary Care Provider + [phone] Encounter Details Date Type Department Care Team (Late st Contact Info) Description 04/08/2015 Orders Only [facility] Ad[facility], Pedro Grady Jr., MD [address] [facility] [id number] [place] [address] Social History Tobacco Use Types Packs/Day Years Used Date Smoking Tobacco: Never Assessed Sex and Gender Information Value Date Recorded Sex Assigned at Not on file Legal Sex Male 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
--- OUTSIDE RECORDS SUMMARY | 2025-04-30 14:37 | XMS_ITS | Encounter Summary ---
Author Organization [facility] [employer] [facility] Address [address] [place] [address] Phone Care Team Providers Care Assistant Merchandiser Name Role Phone Christiano Sandhu MD Primary Care Provider [phone] Encounter Details Date Type Department Care Team (Late st Contact Info) Description 11/18/2014 Orders Only [facility] ProviderKaylee MD [address] [place] [address] Social History Tobacco Use Types Packs/Day Years Used Date Smoking Tobacco: Never Assessed Sex and Gender Information Value Date Recorded Sex Assigned at Not on file 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
== END 2025-04-30 14:33 | disposition home or self-care (01) ==
PROVIDERS: PCP Internal Medicine; Visit Provider Internal Medicine
DX: M25.462 Effusion, left knee (principal); M17.12 Unilateral primary osteoarthritis, left knee; M89.8X8 Other specified disorders of bone, other site; S89.92XA Unspecified injury of left lower leg, initial encounter; X58.XXXA Exposure to other specified factors, initial encounter
CPT/HCPCS: 73700